=== PATIENT | male | born 1940 | race Caucasian/White ===

== ENCOUNTER → 2016-09-04 | Outpatient (REF) | payer MEDICARE, MEDICAID ==
[2016-09-04 21:26] LABS: ANION GAP 9 MEQ/L (8-16); BLOOD UREA NITROGEN 19 MG/DL (7-18); CALCIUM LEVEL 9.4 MG/DL (8.8-10.2); CARBON DIOXIDE LEVEL 29 MEQ/L (21-32); CHLORIDE LEVEL 107 MEQ/L (98-107); CREATININE FOR GFR 0.71 MG/DL (0.70-1.30); GLOMERULAR FILTRATION RATE > 60.0 (>42); GLUCOSE, FASTING 91 MG/DL (83-110); POTASSIUM SERUM 4.3 MEQ/L (3.5-5.1); SODIUM LEVEL 145 MEQ/L (136-145)
== END ==
LOC: M SFHCLERA 14:13
PROVIDERS: ATTEND Family Medicine
DX: E11.9 Type 2 diabetes mellitus without complications (principal)
CPT/HCPCS: 80048; 82043; 83036; G0463

== ENCOUNTER 2016-09-19 10:39 | Emergency (ER) | payer MEDICARE, MEDICAID ==
--- NOTE | 2016-09-19 14:55 | EDDOCDS ---
Nurse's Notes [facility] Name: Juan Daigle Age: 76 yrs Sex: Male : 1940 Arrival Date: 09/19/2016 Time: 10:39 Bed U3 Private MD: Diagnosis: Emotional lability Presentation: 09/19 10:50 Presenting complaint: Patient states: Brought in by police patient denies SI/HI. Mental mlb1 Health Triage Level: Level 2: The patient was brought to the ED for evaluation because of a legal pickup order. Adult Sepsis Screening: The patient does not have new or worsening altered mentation. Patient's respiratory rate is less than 22. Systolic blood pressure is greater than 100. Patient has a qSOFA score of 0- Negative Sepsis Screen. Mental Health Triage Level: Level 2:. Suicide/Homicide risk assessment- the patient denies having any suicidal and/or homicidal ideations and does not present with any other emotional, behavioral or mental health complaints. Status: Patient is not a creative services specialist or dependent. Transition of care: patient was not received from another setting of care. 10:50 Acuity: PAT Level 3 mlb1 10:50 Method Of Arrival: Police Car mlb1 Triage Assessment: 10:57 General: Appears in no apparent distress, Behavior is appropriate for age, cooperative. mlb1 Pain: Denies pain. The patient is triaged at the bedside. See Assessment in Nurses Notes section of ED record. Neurological: Level of Consciousness is awake, alert, Oriented to person, place. Respiratory: No deficits noted. Historical: - Allergies: no known allergies; - Home Meds: 1. furosemide 20 mg Oral tab 1 tab once daily 2. carvedilol 3.125 mg oral tab 2 times per day 3. aspirin 81 mg Oral TbEC 1 tab once daily 4. risperidone 2 mg oral tab 1 tab once daily 5. metformin 1,000 mg Oral tab 1 tab 2 times per day 6. lisinopril 5 mg Oral tab 1 tab once daily 7. Plavix 75 mg Oral tab 1 tab once daily 8. lovastatin 20 mg Oral tab 1 tab once daily - PMHx: Hypertension; Diabetes - NIDDM: controlled; CAD; CHF; Bipolar disorder; - PSHx: none; - Social history: Smoking status: Patient uses tobacco products, heavy tobacco smoker. No barriers to communication noted, The patient speaks fluent Turkish, Speaks appropriately for age. - Family history: Not pertinent. - : Unable to assess if pt is on anticoagulants. Home medication list is obtained from the patient. - Exposure Risk Screening:: None identified. Screenin:35 Screening information is obtained from the parent. Fall risk: No risks identified. ms2 Assistance ADL's: requires no assistance with activities of daily living. Abuse/DV Screen: The patient / caregiver reports he/she is: not in a situation that causes fear, pain or injury. Nutritional screening: No deficits noted. home support is adequate. 11:36 Advance Directives: Currently, there is no health care proxy. There is no active DNR ms2 order. There is no living will. There is no Power of Audit Officer. Advance directive information has not previously been placed in an [facility] medical record. Further advance directive information is declined. Assessment: 11:00 General: Appears in no apparent distress, comfortable, Behavior is appropriate for age, mlb1 cooperative. Pain: Denies pain. Neurological: Level of Consciousness is awake, alert, Oriented to person, place. Respiratory: No deficits noted. 11:33 General: Appears in no apparent distress, comfortable, talking with Dr. davalos. ms2 Neurological: Level of Consciousness is awake, alert, obeys commands. Respiratory: No deficits noted. Airway is patent Respiratory effort is even, unlabored, Respiratory pattern is regular, symmetrical. Derm: Skin is pink, warm & dry. Musculoskeletal: Range of motion intact in all extremities. 12:59 General: Appears in no apparent distress, eating box lunch. Behavior is cooperative. ms2 Neurological: Level of Consciousness is awake, alert, obeys commands. Respiratory: No deficits noted. Airway is patent Respiratory effort is even, unlabored, Respiratory pattern is regular, symmetrical. :. Derm: Skin is pink, warm & dry. Musculoskeletal: No deficits noted. 14:46 Adult Sepsis Screening: Patient's respiratory rate is less than 22. Systolic blood ms2 pressure is less than or equal to 100 (1 point). Patient has a qSOFA score of 1- Negative Sepsis Screen. General: Appears in no apparent distress, pt very active -talking /talking moving about quickly-moving chart writer in circles,. pt not lightheaded or dizzy, gait steady. Behavior is cooperative, pleasant. General: pt ate 2 lunches. Neurological: Level of Consciousness is awake, alert, obeys commands. Cardiovascular:. Respiratory: No deficits noted. Airway is patent Respiratory effort is even, unlabored, Respiratory pattern is regular, symmetrical. Derm: Skin is pink, warm & dry. Derm: Skin is pink, warm & dry. Mental Health Eval: 13:13 Status: The patient is not a creative services specialist or dependent. [facility] Behavioral Health: The patient is not an established patient of [facility] Behavioral Health. Referral Information: Evaluation referral is generated by a police agency: [employer] . The patient was referred for evaluation because Per sister, pt "talking bizarre". Subjective: The patients chief complaint is Pt is slightly disheveled. Pleasant and cooperative. Denies SI or HI, denies A/VH. Pt aware of the year, the month and day, and who the president is. Pt does tend to ramble. He is not always compliant with his meds because he feels "ok" and does not need them all the time. Pt says nurse does not want him to smoke cigarettes, however he states he does not wish to quit. Pt was apparently trying to light cigarettes outside today because smoking is not allowed in his apt. Delusions are denied. Patient's mood is appropriate. Hallucinations are denied. Pt resides with his sister in own apt at [facility]. His pcp is Dr Borja at [facility]. He has no services. States he went to in [address] [facility] but was "just visiting." [facility] started coming in to home 3 weeks ago to draw labs and check on him. Spoke with pt's sister, Ayala, regarding what occurred this morning. Sister says was visiting and pt wanted his cigarettes. Apparently he had purchased a carton this week and felt they were not all where he left them. Meanwhile, encouraging pt to use a nicotine patch in order to stop smoking. The sister denies pt made any sort of verbal threats to harm self or others, but "he talks bizarre sometimes." Sister's story is similar to pt's, although she believes pt may require assisted living at some point soon. She has not approached the nurse about evaluating pt for same. Encouraged her to do so and discuss concerns regarding her brother's future needs. Mental Health history: : Unable to Obtain at this time. Mental Health Admissions: Pt and the sister say pt had an admission to [facility] many years ago (1976?) but neither of them are able to say for what dx. Pt has had no other psych admissions since that time Current Outpatient Mental Health Services: None. Current living environment is Family / Home Support: Lives in own apt with his sister. A family friend escorts him to his appts The patient is single. Patient presents to Emergency Department with the following symptoms within the past 2 weeks: unknown. Pt has no documented hx of dementia, but also no details of past hx for MH. Pt was presented to ER today for bizarre statements. Substance abuse: Pt denies. Mental status exam: Patients appearance is disheveled Patient's behavior is cooperative, Speech is normal. Affect is appropriate. pleasant . Mood is appropriate. Hallucinations are denied. Appetite is normal. Memory is fair. Energy level is normal. Content of thought is normal. Thought process is loose. Cognitive level is oriented to person, place, time and situation Patient's insight is fair. Judgement is fair. Rapport with interviewer is good. Suicidal Ideation is denied. Homicidal ideation is denied. Disposition: Medically cleared for disposition by Kesha Small MD. Vital Signs: 10:56 BP 90 / 43; Pulse 60; Resp 16; Temp 97.3; Pulse Ox 99% on R/A; Weight 72.57 kg (R); mlb1 Height 5 ft. 6 in. (167.64 cm); 10:56 Pain 0/10; mlb1 13:14 BP 107 / 55; Pulse 68; Resp 20 S; Pulse Ox 96% on R/A; ms2 14:53 BP 80 / 50; Pulse 78; Resp 20 S; Pulse Ox 94% on R/A; ms2 10:56 Body Mass Index 25.82 (72.57 kg, 167.64 cm) mlb1 13:14 DR. Davalos aware of BP ms2 14:53 Dr Bong Davalos aware of VS---pt asymptomatic--ok to go home ms2 Vitals: 10:56 Log In time N/A- police car arrival. [facility] ED Course: 10:40 Patient visited by Luis Dyer. mm15 10:40 Patient moved to [facility]15 10:47 Patient moved to [place] [id number] 10:50 Patient visited by Luigi Cadena RN. mlb1 10:51 Kesha Small MD is Attending Physician. sd1 10:53 Triage Initiated mlb1 11:00 Patient visited by Luigi Cadena RN. mlb1 11:02 Patient visited by Aakash Stoll Security Aide. pjf 11:15 Patient visited by Aakash Stoll Security Aide. pjf 11:18 Pt greeted and oriented to ED. Patient advised of names of staff involved in care, pjf location of call plasc[place], wait times and NPO status. Accompanied by Law Enforcement, Patient has correct armband on for positive identification. Bed in low position. Call light in reach. Side rails up X 1. Security observing. Property left with pt per RN, (tracy.b.). Door closed. Noise minimized. Visitors limited. Report received from [facility] - psych. triage level #2, behav. concerns, cooperative \\T\\ this time. Psych Safety Check: Location: Psych Room. 11:25 Patient visited by Kesha Small MD. sd1 11:33 Patient visited by Jose Terrell,DC. ms2 11:35 The patient / caregiver is instructed regarding the plan of care and ED course. ms2 Security observing. 11:36 No IV's were initiated during this patient's visit. No IV's were initiated during this ms2 patient's visit. No procedures done that require assistance. 11:41 Patient visited by Aakash Stoll Security Aide. pjf 12:03 Patient visited by Aakash Stoll Security Aide. pjf 12:03 [facility] Payment Agreement was scanned into [employer] and attached to record. jp5 12:20 Patient visited by Aakash Stoll Security Aide. pjf 12:37 Patient visited by Aakash Stoll Security Aide. pjf 12:52 Patient visited by Aakash Stoll Security Aide. pjf 12:59 The patient / caregiver is instructed regarding the plan of care and ED course. ms2 Security observing. 13:01 Patient name changed from Juan\\S\\\\S\\Daigle\\S\\ to Juan\\S\\ \\S\\Daigle. EDMS 13:04 Patient visited by Aakash Stoll Security Aide. pjf 13:14 Patient visited by Jose Terrell,DC. ms2 13:15 The patient / caregiver is instructed regarding the plan of care and ED course. ms2 Security observing. 13:44 Patient visited by Jose Terrell RN. ms2 13:44 Diet: Patient given regular meal. ms2 13:56 Patient visited by Aakash Stoll Security Aide. pjf 14:23 Patient visited by Aakash Stoll Security [place]. pjf 14:36 Patient visited by Aakash Stoll Security Aide. pjf 14:45 Patient visited by Jose Terrell RN. ms2 14:49 Patient visited by Aakash Stoll Security [place]. pjf 14:51 The patient / caregiver is instructed regarding the plan of care and ED course. ms2 Order Results: There are currently no results for this order. Outcome: 13:52 Discharge ordered by Provider. sd1 14:51 Discharge Assessment: patient administered narcotics - no. The following High Risk ms2 Discharge criteria are identified: None. Discharged to home ambulatory, given cab pass. Condition: stable. Discharge instructions given to patient, Instructed on discharge instructions, follow up and referral plans. Demonstrated understanding of instructions, Pt was receptive of discharge instructions/ teaching. No special radiology studies were completed. 14:54 Patient left the ED. ms2 Signatures: Dispatcher [employer] EDMS Kesha Small MD MD sd1 Jose Terrell,DC RN ms2 Yusra Yuen, PSA PSA ca Aakash Stoll Security Aide Luigi Cordero RN RN mlb1 Luis Dyer mm15 Paige Isbell 5 Corrections: (The following items were deleted from the chart) 11:17 10:56 PMHx: none; mlb1 mlb1 MTDD
--- NOTE | 2016-09-19 14:55 | EDDOCDS ---
Physician Documentation [facility] Name: Juan Daigle Age: 76 yrs Sex: Male : 1940 Arrival Date: 09/19/2016 Time: 10:39 Bed [facility] Private MD: Disposition: 09/19/16 13:52 Discharged to Home/Self Care. Impression: Emotional lability. - Condition is Stable. - Medication Reconciliation, Local Pharmacy Hours form. - Follow up: Private Physician; When: Call to arrange an appointment. - Problem is new. - Symptoms are resolved. Historical: - Allergies: no known allergies; - Home Meds: 1. furosemide 20 mg Oral tab 1 tab once daily 2. carvedilol 3.125 mg oral tab 2 times per day 3. aspirin 81 mg Oral TbEC 1 tab once daily 4. risperidone 2 mg oral tab 1 tab once daily 5. metformin 1,000 mg Oral tab 1 tab 2 times per day 6. lisinopril 5 mg Oral tab 1 tab once daily 7. Plavix 75 mg Oral tab 1 tab once daily 8. lovastatin 20 mg Oral tab 1 tab once daily - PMHx: Hypertension; Diabetes - NIDDM: controlled; CAD; CHF; Bipolar disorder; - PSHx: none; - Social history: Smoking status: Patient uses tobacco products, heavy tobacco smoker. No barriers to communication noted, The patient speaks fluent Gibraltarian, Speaks appropriately for age. - Family history: Not pertinent. - : Unable to assess if pt is on anticoagulants. Home medication list is obtained from the patient. - Exposure Risk Screening:: None identified. Vital Signs: 09/19 10:56 BP 90 / 43; Pulse 60; Resp 16; Temp 97.3; Pulse Ox 99% on R/A; Weight 72.57 kg / 159.99 mlb1 lbs (R); Height 5 ft. 6 in. (167.64 cm); 10:56 Pain 0/10; mlb1 13:14 BP 107 / 55; Pulse 68; Resp 20 S; Pulse Ox 96% on R/A; ms2 14:53 BP 80 / 50; Pulse 78; Resp 20 S; Pulse Ox 94% on R/A; ms2 10:56 Body Mass Index 25.82 (72.57 kg, 167.64 cm) mlb1 13:14 DR. Bhatti aware of BP ms2 14:53 Dr Bong Bhatti aware of VS---pt asymptomatic--ok to go home ms2 MDM: 11:19 REGULAR DIET PLASTIC BELL+DIET ordered. EDMS 12:03 [facility] Payment Agreement was scanned into [employer] and attached to record. jp5 12:03 Financial registration complete. jp5 12:25 Recheck B/P ordered. sd1 Signatures: Dispatcher [employer] EDPA Kesha Small MD MD sd1 Jose TerrellRN RN ms2 Luigi Cadena RN RN mlb1 Paige Isbell jp5 The chart was reviewed and I authenticate all verbal orders and agree with the evaluation and treatment provided.Corrections: (The following items were deleted from the chart) 11:17 10:56 PMHx: none; renetta jackson Attachments: 12:03 [facility] Payment Agreement jp5 MTDD
--- NOTE | 2016-09-21 15:55 | EDDOCDS ---
Physician Documentation [facility] Name: Juan Daigle Age: 76 yrs Sex: Male : 1940 Arrival Date: 09/19/2016 Time: 10:39 Bed [facility] Private MD: Disposition: 09/19/16 13:52 Discharged to Home/Self Care. Impression: Emotional lability. - Condition is Stable. - Medication Reconciliation, Local Pharmacy Hours form. - Follow up: Private Physician; When: Call to arrange an appointment. - Problem is new. - Symptoms are resolved. Historical: - Allergies: no known allergies; - Home Meds: 1. furosemide 20 mg Oral tab 1 tab once daily 2. carvedilol 3.125 mg oral tab 2 times per day 3. aspirin 81 mg Oral TbEC 1 tab once daily 4. risperidone 2 mg oral tab 1 tab once daily 5. metformin 1,000 mg Oral tab 1 tab 2 times per day 6. lisinopril 5 mg Oral tab 1 tab once daily 7. Plavix 75 mg Oral tab 1 tab once daily 8. lovastatin 20 mg Oral tab 1 tab once daily - PMHx: Hypertension; Diabetes - NIDDM: controlled; CAD; CHF; Bipolar disorder; - PSHx: none; - Social history: Smoking status: Patient uses tobacco products, heavy tobacco smoker. No barriers to communication noted, The patient speaks fluent [place] Islander, Speaks appropriately for age. - Family history: Not pertinent. - : Unable to assess if pt is on anticoagulants. Home medication list is obtained from the patient. - Exposure Risk Screening:: None identified. Vital Signs: 09/19 10:56 BP 90 / 43; Pulse 60; Resp 16; Temp 97.3; Pulse Ox 99% on R/A; Weight 72.57 kg / 159.99 mlb1 lbs (R); Height 5 ft. 6 in. (167.64 cm); 10:56 Pain 0/10; mlb1 13:14 BP 107 / 55; Pulse 68; Resp 20 S; Pulse Ox 96% on R/A; ms2 14:53 BP 80 / 50; Pulse 78; Resp 20 S; Pulse Ox 94% on R/A; ms2 10:56 Body Mass Index 25.82 (72.57 kg, 167.64 cm) mlb1 13:14 DR. Bhatti aware of BP ms2 14:53 Dr Bong Bhatti aware of VS---pt asymptomatic--ok to go home ms2 MDM: 11:19 REGULAR DIET PLASTIC BELL+DIET ordered. EDMS 12: [facility] Payment Agreement was scanned into [employer] and attached to record. jp 12: Financial registration complete. jp01 05: Recheck B/P ordered. sd1 09/20 11:23 T-Sheet-- Draft Copy was scanned into [employer] and attached to record. gb Signatures: Dispatcher [employer] EDKesha Aguirre MD MD sd1 Jose Terrell,RN RN ms2 Erinn Trotter, Reg Reg gb Luigi Cadena RN RN mlb1 Paige Isbell jp5 The chart was reviewed and I authenticate all verbal orders and agree with the evaluation and treatment provided.Corrections: (The following items were deleted from the chart) 09/19 11:17 10:56 PMHx: none; mlb1 mlb1 Attachments: 12:03 [facility] Payment Agreement 5 09/20 11:23 T-Sheet-- Draft Copy gb Chart Complete MTDD
--- NOTE | 2016-09-21 15:55 | EDDOCDS ---
Nurse's Notes [facility] Name: Juan Daigle Age: 76 yrs Sex: Male : 1940 Arrival Date: 09/19/2016 Time: 10:39 Bed U3 Private MD: Diagnosis: Emotional lability Presentation: 09/19 10:50 Presenting complaint: Patient states: Brought in by police patient denies SI/HI. Mental mlb1 Health Triage Level: Level 2: The patient was brought to the ED for evaluation because of a legal pickup order. Adult Sepsis Screening: The patient does not have new or worsening altered mentation. Patient's respiratory rate is less than 22. Systolic blood pressure is greater than 100. Patient has a qSOFA score of 0- Negative Sepsis Screen. Mental Health Triage Level: Level 2:. Suicide/Homicide risk assessment- the patient denies having any suicidal and/or homicidal ideations and does not present with any other emotional, behavioral or mental health complaints. Status: Patient is not a director of in service education or dependent. Transition of care: patient was not received from another setting of care. 10:50 Acuity: PAT Level 3 mlb1 10:50 Method Of Arrival: Police Car mlb1 Triage Assessment: 10:57 General: Appears in no apparent distress, Behavior is appropriate for age, cooperative. mlb1 Pain: Denies pain. The patient is triaged at the bedside. See Assessment in Nurses Notes section of ED record. Neurological: Level of Consciousness is awake, alert, Oriented to person, place. Respiratory: No deficits noted. Historical: - Allergies: no known allergies; - Home Meds: 1. furosemide 20 mg Oral tab 1 tab once daily 2. carvedilol 3.125 mg oral tab 2 times per day 3. aspirin 81 mg Oral TbEC 1 tab once daily 4. risperidone 2 mg oral tab 1 tab once daily 5. metformin 1,000 mg Oral tab 1 tab 2 times per day 6. lisinopril 5 mg Oral tab 1 tab once daily 7. Plavix 75 mg Oral tab 1 tab once daily 8. lovastatin 20 mg Oral tab 1 tab once daily - PMHx: Hypertension; Diabetes - NIDDM: controlled; CAD; CHF; Bipolar disorder; - PSHx: none; - Social history: Smoking status: Patient uses tobacco products, heavy tobacco smoker. No barriers to communication noted, The patient speaks fluent Sinhala, Speaks appropriately for age. - Family history: Not pertinent. - : Unable to assess if pt is on anticoagulants. Home medication list is obtained from the patient. - Exposure Risk Screening:: None identified. Screenin:35 Screening information is obtained from the parent. Fall risk: No risks identified. ms2 Assistance ADL's: requires no assistance with activities of daily living. Abuse/DV Screen: The patient / caregiver reports he/she is: not in a situation that causes fear, pain or injury. Nutritional screening: No deficits noted. home support is adequate. 11:36 Advance Directives: Currently, there is no health care proxy. There is no active DNR ms2 order. There is no living will. There is no Power of Resourcing Advisor. Advance directive information has not previously been placed in an [facility] medical record. Further advance directive information is declined. Assessment: 11:00 General: Appears in no apparent distress, comfortable, Behavior is appropriate for age, mlb1 cooperative. Pain: Denies pain. Neurological: Level of Consciousness is awake, alert, Oriented to person, place. Respiratory: No deficits noted. 11:33 General: Appears in no apparent distress, comfortable, talking with Dr. davalos. ms2 Neurological: Level of Consciousness is awake, alert, obeys commands. Respiratory: No deficits noted. Airway is patent Respiratory effort is even, unlabored, Respiratory pattern is regular, symmetrical. Derm: Skin is pink, warm & dry. Musculoskeletal: Range of motion intact in all extremities. 12:59 General: Appears in no apparent distress, eating box lunch. Behavior is cooperative. ms2 Neurological: Level of Consciousness is awake, alert, obeys commands. Respiratory: No deficits noted. Airway is patent Respiratory effort is even, unlabored, Respiratory pattern is regular, symmetrical. :. Derm: Skin is pink, warm & dry. Musculoskeletal: No deficits noted. 14:46 Adult Sepsis Screening: Patient's respiratory rate is less than 22. Systolic blood ms2 pressure is less than or equal to 100 (1 point). Patient has a qSOFA score of 1- Negative Sepsis Screen. General: Appears in no apparent distress, pt very active -talking /talking moving about quickly-moving blurb writer in circles,. pt not lightheaded or dizzy, gait steady. Behavior is cooperative, pleasant. General: pt ate 2 lunches. Neurological: Level of Consciousness is awake, alert, obeys commands. Cardiovascular:. Respiratory: No deficits noted. Airway is patent Respiratory effort is even, unlabored, Respiratory pattern is regular, symmetrical. Derm: Skin is pink, warm & dry. Derm: Skin is pink, warm & dry. Mental Health Eval: 13:13 Status: The patient is not a director of in service education or dependent. [facility] Behavioral Health: The patient is not an established patient of [facility] Behavioral Health. Referral Information: Evaluation referral is generated by a police agency: [employer] . The patient was referred for evaluation because Per sister, pt "talking bizarre". Subjective: The patients chief complaint is Pt is slightly disheveled. Pleasant and cooperative. Denies SI or HI, denies A/VH. Pt aware of the year, the month and day, and who the president is. Pt does tend to ramble. He is not always compliant with his meds because he feels "ok" and does not need them all the time. Pt says nurse does not want him to smoke cigarettes, however he states he does not wish to quit. Pt was apparently trying to light cigarettes outside today because smoking is not allowed in his apt. Delusions are denied. Patient's mood is appropriate. Hallucinations are denied. Pt resides with his sister in own apt at [facility]. His pcp is Dr Borja at [facility]. He has no services. States he went to in 1976 at [facility] but was "just visiting." [facility] started coming in to home 3 weeks ago to draw labs and check on him. Spoke with pt's sister, Ayala, regarding what occurred this morning. Sister says was visiting and pt wanted his cigarettes. Apparently he had purchased a carton this week and felt they were not all where he left them. Meanwhile, encouraging pt to use a nicotine patch in order to stop smoking. The sister denies pt made any sort of verbal threats to harm self or others, but "he talks bizarre sometimes." Sister's story is similar to pt's, although she believes pt may require assisted living at some point soon. She has not approached the nurse about evaluating pt for same. Encouraged her to do so and discuss concerns regarding her brother's future needs. Mental Health history: : Unable to Obtain at this time. Mental Health Admissions: Pt and the sister say pt had an admission to [facility] many years ago (1976?) but neither of them are able to say for what dx. Pt has had no other psych admissions since that time Current Outpatient Mental Health Services: None. Current living environment is Family / Home Support: Lives in own apt with his sister. A family friend escorts him to his appts The patient is single. Patient presents to Emergency Department with the following symptoms within the past 2 weeks: unknown. Pt has no documented hx of dementia, but also no details of past hx for MH. Pt was presented to ER today for bizarre statements. Substance abuse: Pt denies. Mental status exam: Patients appearance is disheveled Patient's behavior is cooperative, Speech is normal. Affect is appropriate. pleasant . Mood is appropriate. Hallucinations are denied. Appetite is normal. Memory is fair. Energy level is normal. Content of thought is normal. Thought process is loose. Cognitive level is oriented to person, place, time and situation Patient's insight is fair. Judgement is fair. Rapport with interviewer is good. Suicidal Ideation is denied. Homicidal ideation is denied. Disposition: Medically cleared for disposition by Kesha Small MD. 16:28 Disposition: Psychiatric Consult is deferred per ED physician, Dr Davalos. DSM-V ca Differential Diagnosis: Emotional lability. Narrative: Pt discharged to home via Yellow cab. Cab voucher provided. Pt's sister aware. Vital Signs: 10:56 BP 90 / 43; Pulse 60; Resp 16; Temp 97.3; Pulse Ox 99% on R/A; Weight 72.57 kg (R); mlb1 Height 5 ft. 6 in. (167.64 cm); 10:56 Pain 0/10; mlb1 13:14 BP 107 / 55; Pulse 68; Resp 20 S; Pulse Ox 96% on R/A; ms2 14:53 BP 80 / 50; Pulse 78; Resp 20 S; Pulse Ox 94% on R/A; ms2 10:56 Body Mass Index 25.82 (72.57 kg, 167.64 cm) mlb1 13:14 DR. Davalos aware of BP ms2 14:53 Dr Bong Davalos aware of VS---pt asymptomatic--ok to go home ms2 Vitals: 10:56 Log In time N/A- police car arrival. [facility] ED Course: 10:40 Patient visited by Luis Dyer. mm15 10:40 Patient moved to Waiting mm15 10:47 Patient moved to [facility] mlb1 10:50 Patient visited by Luigi Cadena, DC. mlb1 10:51 Kesha Small MD is Attending Physician. sd1 10:53 Triage Initiated mlb1 11:00 Patient visited by Luigi Cadena, DC. mlb1 11:02 Patient visited by Aakash Stoll Security Aide. pjf 11:15 Patient visited by Aakash Stoll Security Aide. pjf 11:18 Pt greeted and oriented to ED. Patient advised of names of staff involved in care, pjf location of call plascencia, wait times and NPO status. Accompanied by Law Enforcement, Patient has correct armband on for positive identification. Bed in low position. Call light in reach. Side rails up X 1. Security observing. Property left with pt per RN, (joanne). Door closed. Noise minimized. Visitors limited. Report received from [facility] - psych. triage level #2, behav. concerns, cooperative \\T\\ this time. Psych Safety Check: Location: Psych Room. 11:25 Patient visited by Kesha Small MD. sd1 11:33 Patient visited by Jose Terrell RN. ms2 11:35 The patient / caregiver is instructed regarding the plan of care and ED course. ms2 Security observing. 11:36 No IV's were initiated during this patient's visit. No IV's were initiated during this ms2 patient's visit. No procedures done that require assistance. 11:41 Patient visited by Aakash Stoll Security Aide. pjf 12:03 Patient visited by Aakash Stoll Security Aide. pjf 12:03 [facility] Payment Agreement was scanned into [employer] and attached to record. jp5 12:20 Patient visited by Aakash Stoll Security Aide. pjf 12:37 Patient visited by Aakash Stoll Security Aide. pjf 12:52 Patient visited by Aakash Stoll Security Aide. pjf 12:59 The patient / caregiver is instructed regarding the plan of care and ED course. ms2 Security observing. 13:01 Patient name changed from Juan\\S\\\\S\\Daigle\\S\\ to Juan\\S\\ \\S\\Daigle. EDMS 13:04 Patient visited by Aakash Stoll Security Aide. pjf 13:14 Patient visited by Jose Terrell RN. ms2 13:15 The patient / caregiver is instructed regarding the plan of care and ED course. ms2 Security observing. 13:44 Patient visited by Jose Terrell RN. ms2 13:44 Diet: Patient given regular meal. ms2 13:56 Patient visited by Aakash Stoll Security Aide. pjf 14:23 Patient visited by Aakash Stoll Security Aide. pjf 14:36 Patient visited by Aakash Stoll Security Aide. pjf 14:45 Patient visited by Jose Terrell RN. ms2 14:49 Patient visited by Aakash Stoll Security Aide. pjf 14:51 The patient / caregiver is instructed regarding the plan of care and ED course. ms2 09/20 11:23 T-Sheet-- Draft Copy was scanned into [employer] and attached to record. Order Results: There are currently no results for this order. Outcome: 09/19 13:52 Discharge ordered by Provider. sd1 14:51 Discharge Assessment: patient administered narcotics - no. The following High Risk ms2 Discharge criteria are identified: None. Discharged to home ambulatory, given cab pass. Condition: stable. Discharge instructions given to patient, Instructed on discharge instructions, follow up and referral plans. Demonstrated understanding of instructions, Pt was receptive of discharge instructions/ teaching. No special radiology studies were completed. 14:54 Patient left the ED. ms2 Signatures: Dispatcher [facility] Kesha Small MD MD sd1 Jose Terrell,RN RN ms2 Yusra Yuen, PSA PSA ca Rose Marie, Erinn, Reg Reg gb Aakash Stoll Security Aide Securpjf Barney, Michael B RN RN mlb1 Luis Dyer mm15 Paige Isbell jp5 Corrections: (The following items were deleted from the chart) 11:17 10:56 PMHx: none; mlb1 mllaura Chart Complete MTDD
--- NOTE | 2016-09-21 15:55 | EDDOCDS ---
Physician Documentation [facility] Name: Juan Daigle Age: 76 yrs Sex: Male : 1940 Arrival Date: 09/19/2016 Time: 10:39 Bed [facility] Private MD: Disposition: 09/19/16 13:52 Discharged to Home/Self Care. Impression: Emotional lability. - Condition is Stable. - Medication Reconciliation, Local Pharmacy Hours form. - Follow up: Private Physician; When: Call to arrange an appointment. - Problem is new. - Symptoms are resolved. Historical: - Allergies: no known allergies; - Home Meds: 1. furosemide 20 mg Oral tab 1 tab once daily 2. carvedilol 3.125 mg oral tab 2 times per day 3. aspirin 81 mg Oral TbEC 1 tab once daily 4. risperidone 2 mg oral tab 1 tab once daily 5. metformin 1,000 mg Oral tab 1 tab 2 times per day 6. lisinopril 5 mg Oral tab 1 tab once daily 7. Plavix 75 mg Oral tab 1 tab once daily 8. lovastatin 20 mg Oral tab 1 tab once daily - PMHx: Hypertension; Diabetes - NIDDM: controlled; CAD; CHF; Bipolar disorder; - PSHx: none; - Social history: Smoking status: Patient uses tobacco products, heavy tobacco smoker. No barriers to communication noted, The patient speaks fluent Kenyan, Speaks appropriately for age. - Family history: Not pertinent. - : Unable to assess if pt is on anticoagulants. Home medication list is obtained from the patient. - Exposure Risk Screening:: None identified. Vital Signs: 09/19 10:56 BP 90 / 43; Pulse 60; Resp 16; Temp 97.3; Pulse Ox 99% on R/A; Weight 72.57 kg / 159.99 mlb1 lbs (R); Height 5 ft. 6 in. (167.64 cm); 10:56 Pain 0/10; mlb1 13:14 BP 107 / 55; Pulse 68; Resp 20 S; Pulse Ox 96% on R/A; ms2 14:53 BP 80 / 50; Pulse 78; Resp 20 S; Pulse Ox 94% on R/A; ms2 10:56 Body Mass Index 25.82 (72.57 kg, 167.64 cm) mlb1 13:14 DR. Bhatti aware of BP ms2 14:53 Dr Bong Bhatti aware of VS---pt asymptomatic--ok to go home ms2 MDM: 11:19 REGULAR DIET PLASTIC BELL+DIET ordered. EDMS 12: REPLACED BY [facility] Payment Agreement was scanned into [employer] and attached to record. jp 12: Financial registration complete. jp01 05: Recheck B/P ordered. sd1 09/20 11:23 T-Sheet-- Draft Copy was scanned into [employer] and attached to record. gb Signatures: Dispatcher [employer] EDKesha Aguirre MD MD sd1 Jose Terrell,RN RN ms2 Erinn Trotter, Reg Reg gb Luigi Cadena RN RN mlb1 Paige Isbell jp5 The chart was reviewed and I authenticate all verbal orders and agree with the evaluation and treatment provided.Corrections: (The following items were deleted from the chart) 09/19 11:17 10:56 PMHx: none; mlb1 mlb1 Attachments: 12:03 REPLACED BY [facility] Payment Agreement 5 09/20 11:23 T-Sheet-- Draft Copy gb Chart Complete MTDD
== END 2016-09-19 14:54 | disposition home or self-care (01) ==
LOC: M ED 10:39
DX: R45.86 Emotional lability (principal); I10 Essential (primary) hypertension; E11.9 Type 2 diabetes mellitus without complications; I25.10 Atherosclerotic heart disease of native coronary artery without angina pectoris; I50.20 Unspecified systolic (congestive) heart failure; F31.9 Bipolar disorder, unspecified; F17.210 Nicotine dependence, cigarettes, uncomplicated; Z79.82 Long term (current) use of aspirin; Z79.899 Other long term (current) drug therapy; Z79.02 Long term (current) use of antithrombotics/antiplatelets

== ENCOUNTER 2016-10-05 16:19 | Inpatient (IN) | payer MEDICARE, MEDICAID ==
[~2016-10-05] VITALS: Ht 167.6 cm; Wt 75.2 kg
[2016-10-05] MEDS ORDERED: ASPIRIN 81 MG CHEW TABLET As Ordered ONE (17:18)
[2016-10-05 18:01] LABS: BASO % 0.8 % (0.0-1.0); EOS # 0.2 K/mm3 (0.0-0.50); EOS % 3.1 % (0.0-3.0); LARGE UNSTAINED CELL # 0.1 K/mm3 (0.0-0.4); LARGE UNSTAINED CELL % 1.5 % (0.0-4.0); LYMPH # 1.7 K/mm3 (1.5-4.5); LYMPH % 24.5 % (24.0-44.0); MEAN CORPUSCULAR HEMOGLOBIN 30.5 pg (27.0-33.0); MEAN CORPUSCULAR HGB CONC 32.9 g/dl (32.0-36.5); MEAN CORPUSCULAR VOLUME 92.6 fl (80.0-96.0); MONO # 0.4 K/mm3 (0.0-0.8); MONO % 6.3 % (0.0-5.0); NEUTROPHILS # 4.1 K/mm3 (1.8-7.7); NEUTROPHILS % 63.8 % (36.0-66.0); PLATELET COUNT, AUTOMATED 163 k/mm3 (150-450); WHITE BLOOD COUNT 6.4 K/mm3 (4.0-10.0)
[2016-10-05 18:25] LABS: ALBUMIN 3.6 GM/DL (3.2-5.2); ALBUMIN/GLOBULIN RATIO 1.16 (1.00-1.93); ALKALINE PHOSPHATASE 67 U/L (45-117); ALT/SGPT 22 U/L (12-78); AST/SGOT 13 U/L (15-37); BILIRUBIN,DIRECT 0.1 MG/DL (0.0-0.2); BILIRUBIN,TOTAL 0.4 MG/DL (0.2-1.0); TOTAL PROTEIN 6.7 GM/DL (6.4-8.2)
[2016-10-05 18:27] LABS: ANION GAP 7 MEQ/L (8-16); BLOOD UREA NITROGEN 20 MG/DL (7-18); CALCIUM LEVEL 9.1 MG/DL (8.8-10.2); CARBON DIOXIDE LEVEL 31 MEQ/L (21-32); CHLORIDE LEVEL 103 MEQ/L (98-107); CREATININE FOR GFR 0.66 MG/DL (0.70-1.30); FREE T4 1.13 NG/DL (0.76-1.46); GLOMERULAR FILTRATION RATE > 60.0 (>42); GLUCOSE, FASTING 82 MG/DL (83-110); MAGNESIUM LEVEL 1.8 MG/DL (1.8-2.4); POTASSIUM SERUM 4.3 MEQ/L (3.5-5.1); SODIUM LEVEL 141 MEQ/L (136-145)
--- NOTE | 2016-10-05 18:46 | REP ---
PORTABLE CHEST: AP portable view of the chest is performed and compared to prior study of 02/10/2016. Mild cardiomegaly is unchanged since the prior study. There is pulmonary venous hypertension and increased interstitial markings diffusely bilaterally which are also stable. The mediastinal silhouette is unchanged. IMPRESSION: Stable mild cardiomegaly, pulmonary venous hypertension and increased interstitial markings. Findings may represent chronic interstitial fibrotic change or edema. There are no new findings. Signed by Julio Cesar Verde MD 10/05/2016 08:16 P
[2016-10-05] MEDS ORDERED: ONDANSETRON 4MG/2ML VIAL (J2405) IV PRN (20:15)
[2016-10-05] MEDS ORDERED: LISI-542 PO (20:28)
[2016-10-05] MEDS ORDERED: ASPI1TAB PO (20:28)
[2016-10-05] MEDS ORDERED: LOVA20TA2 PO (20:28)
[2016-10-05] MEDS ORDERED: METF1000 PO (20:28)
[2016-10-05] MEDS ORDERED: RISP2TAB3 PO (20:28)
[2016-10-05] MEDS ORDERED: FURO20TA2 PO (20:28)
[2016-10-05] MEDS ORDERED: CARV3.12 PO (20:28)
--- NOTE | 2016-10-05 20:56 | HPEPDOC ---
General Date of Admission Oct 05, 2016 at 20:12 Chief Complaint The patient is a 76-year-old male admitted with a reason for visit of Bradycardia,Symptomic Bradycardia. History of Present Illness 76-year-old male with past medical history of diabetes mellitus, coronary artery disease, congestive heart failure with ejection fraction of 35-40% from echo on 07/12, dyslipidemia, tobacco dependence, and bipolar disorder presents to the ER following 2 syncopal episodes over the last 48 hours. The extent of this history is limited given the patient's underlying history of bipolar disorder and noncompliance to his medications. I did obtain the bulk of this information from the ER physician. Apparently, the patient had 2 episodes of syncope over the last 48 hours that were witnessed by his sister at home. The patient states that he was feeling lightheaded and dizzy before these episodes. He notes that he was standing with the symptoms occurred and denies feeling any preceding chest pain, palpitations, shortness of breath, abdominal pain or any other symptoms aside from lightheadedness. He denies any trauma to the head, he denies loss of consciousness, and states that the symptoms only lasted for about 5 seconds. In the ER, an EKG revealed the patient to be in sinus bradycardia with first- degree block. Cardiology has been consulted in the ER, and Dr. Johnson will be evaluating the patient for a possible pacemaker. Patient will be admitted to the hospital service for further evaluation and management. Home Medications Scheduled (Risperidone) 2 Mg Tab 2 MG PO DAILY (Reported) Aspirin (Aspirin 81) 81 Mg Tab 81 MG PO DAILY (Reported) Carvedilol (Carvedilol) 3.125 Mg Tab 3.125 MG PO BID (Reported) Furosemide (Furosemide) 20 Mg Tab 20 MG PO DAILY (Reported) Lisinopril (Lisinopril) 5 Mg Tab 5 MG PO DAILY (Reported) Lovastatin (Lovastatin) 20 Mg Tab 20 MG PO DAILY (Reported) Metformin Hydrochloride (Metformin HCl) 1,000 Mg Tab 1,000 MG PO BID (Reported ) Allergies Coded Allergies: No Known Allergies (Unverified , 10/05/16) Past Medical History Medical History As noted in HPI. Family History Significant Family History: No pertinent family hx Social History * Smoker: less than 1 pack/day Alcohol: occationally Drugs: denies Review of Symptoms Other systems Unable to accurately review systems as the patient is tangential in his conversation. Physical Examination General Exam: Positive: Alert, Cooperative, No Acute Distress ENT Exam: Positive: Atraumatic, Mucous membr. moist/pink Neck Exam: Negative: JVD Chest Exam: Positive: Clear to auscultation, Normal air movement Heart Exam: Positive: Bradycardic, Normal S1, Normal S2 Abdomen Exam: Positive: Soft, Negative: Tenderness Extremity Exam: Negative: Tenderness (2+ pitting edema in the large drums bilaterally) Vital Signs As noted in the EMR. Laboratory Data Labs 24H Laboratory Tests 2 10/05/16 17:51: Acetaminophen Level < 2.0L, Aspartate Amino Transf (AST/SGOT) 13L, Alanine Aminotransferase (ALT/SGPT) 22, Alkaline Phosphatase 67, Total Bilirubin 0.4, Direct Bilirubin 0.1, Albumin 3.6, Albumin/Globulin Ratio 1.16, Anion Gap 7L, White Blood Count 6.4, Red Blood Count 3.89L, Hemoglobin 11.8L, Hematocrit 36.0L , Mean Corpuscular Volume 92.6, Mean Corpuscular Hemoglobin 30.5, Mean Corpuscular Hemoglobin Concent 32.9, Red Cell Distribution Width 13.0, Platelet Count 163, Neutrophils (%) (Auto) 63.8, Lymphocytes (%) (Auto) 24.5, Monocytes ( %) (Auto) 6.3H, Eosinophils (%) (Auto) 3.1H, Basophils (%) (Auto) 0.8, Neutrophils # (Auto) 4.1, Lymphocytes # (Auto) 1.7, Monocytes # (Auto) 0.4, Eosinophils # (Auto) 0.2, Basophils # (Auto) 0.0, Blood Urea Nitrogen 20H, Creatinine 0.66L, Sodium Level 141, Potassium Level 4.3, Chloride Level 103, Carbon Dioxide Level 31, Calcium Level 9.1, Total Creatine Kinase 86, Creatine Kinase MB 3.9H, Creatine Kinase MB Relative Index 4.53H, Ethyl Alcohol Level < 0.003, Free Thyroxine 1.13, Glomerular Filtration Rate > 60.0, Large Unclassified Cells # 0.1, Large Unclassified Cells % 1.5, Magnesium Level 1.8, Salicylates Level 3.9L, Thyroid Stimulating Hormone (TSH) 0.297L, Total Protein 6.7, Troponin I 0.02 10/05/16 20:36: CBC/BMP Laboratory Tests 10/05/16 17:51 Calcium Level 9.1, Total Creatine Kinase 86, Red Blood Count 3.89 L, Mean Corpuscular Volume 92.6, Mean Corpuscular Hemoglobin 30.5, Mean Corpuscular Hemoglobin Concent 32.9, Red Cell Distribution Width 13.0, Neutrophils (%) (Auto ) 63.8, Lymphocytes (%) (Auto) 24.5, Monocytes (%) (Auto) 6.3 H, Eosinophils (% ) (Auto) 3.1 H, Basophils (%) (Auto) 0.8, Neutrophils # (Auto) 4.1, Lymphocytes # (Auto) 1.7, Monocytes # (Auto) 0.4, Eosinophils # (Auto) 0.2, Basophils # ( Auto) 0.0 Plan / VTE VTE Prophylaxis Ordered?: Yes Plan Plan Symptomatic Sinus bradycardia with first-degree AV block Admit to PCU EKG as noted above Initial troponin negative, will cycle [address] Johnson cardiology consulted in the ER, will evaluate the patient for possible pacemaker placement Continue to monitor on telemetry We'll keep the patient nothing by mouth for possible procedure in the morning CAD, History of congestive heart failure Last known EF of 35-40% from 07/12 Does not appear to be grossly volume overloaded at this time Continue aspirin, lisinopril, statin, Lasix Diabetes mellitus Continue insulin sliding scale Dyslipidemia Continue statin Bipolar disorder Continue Risperdal DVT prophylaxis-Lovenox subcutaneously The patient will be admitted to the service of Dr. Santiago who will start following the patient on 10/06/2016 at 7 AM. LEI PADILLA MD Oct 05, 2016 20:56
[2016-10-05] MEDS ORDERED: DEXTROSE 50% 50 ML SYRINGE IV PRN (21:00)
[2016-10-05] MEDS ORDERED: GLUCOSE 4 GM CHEW TABLET PO PRN (21:00)
[2016-10-05] MEDS ORDERED: GLUCAGON FOR INJ 1 MG VIAL (J1610) SC PRN (21:00)
[2016-10-05] MEDS ORDERED: NICOTINE 14 MG/24 HR TRANSDERMAL TD ONE (21:00)
[2016-10-05] MEDS ORDERED: NICOTINE 14 MG/24 HR TRANSDERMAL TD SCH (21:00)
[2016-10-05] MEDS ORDERED: ATROPINE SULF 1MG/10ML SYRINGE (J0461) IV PRN (21:15)
[2016-10-05 21:30] VITALS: BP 186/77
[2016-10-05] MEDS: HumaLOG INSULIN (NovoLOG) PER UNIT SC SCH (22:59)
[2016-10-06] VITALS (8 sets, daily range): BP systolic 126–195; BP diastolic 60–97
[2016-10-06 05:38] LABS: MEAN CORPUSCULAR HEMOGLOBIN 31.1 pg (27.0-33.0); MEAN CORPUSCULAR HGB CONC 33.5 g/dl (32.0-36.5); RED CELL DISTRIBUTION WIDTH 12.7 % (11.5-14.5); WHITE BLOOD COUNT 7.5 K/mm3 (4.0-10.0)
[2016-10-06 06:14] LABS: ANION GAP 7 MEQ/L (8-16); BLOOD UREA NITROGEN 16 MG/DL (7-18); CARBON DIOXIDE LEVEL 28 MEQ/L (21-32); CHLORIDE LEVEL 106 MEQ/L (98-107); CREATININE FOR GFR 0.63 MG/DL (0.70-1.30); GLOMERULAR FILTRATION RATE > 60.0 (>42); GLUCOSE, FASTING 123 MG/DL (83-110); SODIUM LEVEL 141 MEQ/L (136-145)
[2016-10-06 06:15] LABS: CALCIUM LEVEL 8.9 MG/DL (8.8-10.2)
[2016-10-06] MEDS: HumaLOG INSULIN (NovoLOG) PER UNIT SC SCH ×4 (07:24→21:00)
[2016-10-06] MEDS ORDERED: ASPIRIN 81 MG ENTERIC TAB PO SCH (09:00)
[2016-10-06] MEDS: LISINOPRIL 5 MG TAB PO SCH (09:00)
[2016-10-06] MEDS: NICOTINE 14 MG/24 HR TRANSDERMAL TD SCH (09:00)
[2016-10-06] MEDS ORDERED: SIMVASTATIN 20 MG TAB PO SCH ×2 (09:00→21:00)
[2016-10-06] MEDS: risperiDONE 2 MG TAB PO SCH (09:00)
[2016-10-06] MEDS ORDERED: ENOXAPARIN 40 MG/0.4 ML SYRINGE (J1650) SC SCH (09:00)
[2016-10-06] MEDS: FUROSEMIDE 20 MG TAB PO SCH (09:00)
--- NOTE | 2016-10-06 13:21 | IPN ---
DATE: 10/06/2016 Patient is seen and examined at the bedside. Chart has been reviewed. Patient denies any chest pain, pressure, or tightness. He complains of left shoulder discomfort when he raises his hand. He denies any diaphoresis, nausea, vomiting. No dizziness or lightheadedness upon standing. Temperature 97.2, pulse 78, sinus rhythm, respiratory rate 19, blood pressure 158/74, 99% on room air. Generally, patient is awake, alert, oriented times three, answering questions appropriately. No jugular venous distention. No thyromegaly. Moist mucous membranes. Lungs are clear to auscultation. No wheezing, rales, or rhonchi. Heart S1, S2, sinus rhythm at the bedside. Abdomen soft, nontender, nondistended. Extremities 2+ edema. LABORATORY DATA: White count 7.5, hemoglobin 13, hematocrit 39, platelet count 168. TSH 0.297. Sodium 141, potassium 4, chloride 106, bicarbonate 28, BUN 16, creatinine 0.63, glucose 123. Chest xray imaging study pulmonary venous hypertension, chronic interstitial fibrotic change or edema, no new findings. ASSESSMENT AND PLAN: This is a 76-year-old male, history of type 2 diabetes, coronary artery disease (CAD), congestive heart failure (CHF), ejection fraction (EF) of 35-40% from previous echo June 2016, dyslipidemia, tobacco dependence, bipolar disorder, presents to the emergency room (ER) with two syncopal episodes over the past 48 hours. EKG shows first-degree atrioventricular (AV) block, cardiology has been consulted, Dr. Johnson evaluating the patient for possible pacemaker placement. IMPRESSION: 1. Symptomatic sinus bradycardia with recurrent syncope, first-degree atrioventricular (AV) block. Patient is admitted to progressive care unit (PCU) for telemetry. EKG was noted. Troponin negative. Patient's Coreg has been held. Carbonator, Dr. Johnson, to determine requirement for pacemaker placement. 2. Congestive heart failure (CHF). Ejection (EF) of 35-40%, systolic dysfunction. Patient is continued on lisinopril, statin, and Lasix. Will hold the patient's aspirin in case goes for pacemaker placement. 3. Syncope, most likely secondary to bradycardia. Continue on telemetry. Defer to Dr. Johnson for recommendations for possible pacemaker versus loop recorder. 4. Type 2 diabetes. Consistent carbohydrate diet if no plans for pacemaker placement. Currently nothing by mouth. Hypoglycemic protocol. MTDD
--- NOTE | 2016-10-06 14:56 | EDDOCDS ---
Physician Documentation [facility] Name: Juan Daigle Age: 76 yrs Sex: Male : 1940 Arrival Date: 10/05/2016 Time: 16:19 Bed Admit Hold Private MD: Disposition: 10/05/16 19:47 Hospitalization ordered by Rich Otero for Inpatient Admission. Preliminary diagnosis is Syncope and collapse - With sinus arrythmia. - Bed requested for PCU. - Status is Inpatient Admission. bcj - Condition is Stable. - Problem is an ongoing problem. - Symptoms are unchanged. Historical: - Allergies: no known allergies; - Home Meds: 1. metformin 1,000 mg Oral tab 1 tab 2 times per day 2. lovastatin 20 mg Oral tab 1 tab once daily 3. furosemide 20 mg Oral tab 1 tab once daily 4. carvedilol 3.125 mg oral tab 2 times per day 5. risperidone 2 mg oral tab 1 tab once daily 6. aspirin 81 mg Oral TbEC 1 tab once daily 7. lisinopril 5 mg Oral tab 1 tab once daily - PMHx: Bipolar disorder; CAD; CHF; Diabetes - NIDDM: controlled; Hypertension; LBBB; Macular Degeneration; - PSHx: none; - Social history: Smoking status: Patient uses tobacco products, current every day smoker. No barriers to communication noted, The patient speaks fluent Kyrgyz, Speaks appropriately for age. - Family history: Not pertinent. - : Unable to assess if pt is on anticoagulants. Unable to Verify Home Med List with the patient / caregiver. Note have med list from PMD but unknown if pt has been taking meds. sep 19 was on plavix but not on today's med list from PMD. - Exposure Risk Screening:: None identified. Vital Signs: 10/05 16:26 BP 142 / 78 (auto/); srm 16:27 Pulse 64 MON; Pulse Ox 100% ; srm 16:31 BP 142 / 78; Pulse 66; Resp 18; Temp 97.6(TE); Pulse Ox 100% on R/A; Weight 83.46 kg / dem1 184 lbs; Height 5 ft. 6 in. (167.64 cm); Pain 0/10; 16:41 BP 153 / 74 (auto/); srm 16:42 Pulse 64 MON; Pulse Ox 100% ; srm 16:56 Pulse 64 MON; Pulse Ox 100% ; srm 16:56 BP 149 / 70 (auto/); srm 17:11 BP 137 / 95 (auto/); srm 17:12 Pulse 66 MON; Resp 18; Pulse Ox 98% ; srm 17:26 Pulse 46 MON; Pulse Ox 100% ; srm 17:26 BP 152 / 76 (auto/); srm 17:41 BP 142 / 84 (auto/); srm 17:41 Pulse 52 MON; Resp 18; Pulse Ox 100% ; srm 19:06 BP 135 / 64 (auto/); af2 19:07 Pulse 66 MON; Resp 18 S; Pulse Ox 98% on R/A; af2 16:31 Body Mass Index 29.70 (83.46 kg, 167.64 cm) dem1 MDM: 17:15 IV Saline Lock ordered. ml 17:15 Waste Paper [place] Operator/Pulse Ox/q 15 min VS ordered. ml 17:15 Rhythm Strip to chart ordered. ml 17:15 Aspirin Chewable Tablet 324 mg PO once ordered. ml 17:16 CBC with Diff Ordered. EDMS 17:16 MED Profile Ordered. EDMS 17:16 CIP Ordered. EDMS 17:16 Troponin Ordered. EDMS 17:16 Magnesium Level Ordered. EDMS 17:16 FreeT4 with TSH Ordered. EDMS 17:16 Chest, 1 View Ordered. EDMS 17:17 Liver Profile Ordered. EDMS 17:43 Financial registration complete. [email or web address] 17:51 [facility] Payment Agreement was scanned into [employer] and attached to record. [email or web address] 18:47 CBC with Diff Reviewed. ml 18:47 MED Profile Reviewed. ml 18:47 CIP Reviewed. ml 18:47 FreeT4 with TSH Reviewed. ml 18:47 Liver Profile Reviewed. ml 18:47 Troponin Reviewed. ml 18:47 Magnesium Level Reviewed. ml 19:20 ECG WITH READING ER PHYS+CARDIAG ordered. EDMS 19:23 Confirm accurate psychiatric medication list and times of last dosage ordered. mm11 19:23 Detain Pt Until Medically/PFS Cleared ordered. mm11 19:24 Drug Eval Toxicology ED Only Ordered. EDMS 19:49 ACETAMINOPHEN LEVEL Ordered. EDMS 19:49 ETHYL ALCOHOL (ETHANOL) Ordered. EDMS 19:49 SALICYLATE LEVEL Ordered. EDMS 19:49 THYROID STIMULATING HORMONE Ordered. EDMS 20:18 Admission / Observation Status ordered. EDMS 20:19 TROPONIN Ordered. EDMS 20:19 BASIC METABOLIC PROFILE Ordered. EDMS 20:19 COMPLETE BLOOD COUNT Ordered. EDMS 20:19 TROPONIN Ordered. EDMS 20:30 TROPONIN Ordered. EDMS 10/06 09:31 T-Sheet-- Draft Copy was scanned into [employer] and attached to record. gb 12:01 Fingerstick Blood Sugar Ordered. EDMS 13:23 NO ADDED SALT DIET ordered. EDMS Administered Medications: 10/05 17:31 Drug: Aspirin 324 mg [aspirin 81 mg chewable tablet (4 tabs)] Route: PO; ld5 Signatures: Dispatcher [employer] EDMS David Iraheta MD MD Jose Clark, RN RN Angela Villareal RN RN [facility] Erinn Trotter, Reg Reg gb Bronson Griffiths, DO mm11 Carrie FrancisRN RN af2 Nettie Rivas, Reg Reg [id number] Ana Guillermo RN ld5 The chart was reviewed and I authenticate all verbal orders and agree with the evaluation and treatment provided.Corrections: (The following items were deleted from the chart) 19:49 19:24 ACETAMINOPHEN LEVEL+LAB ordered. EDMS EDMS 19:49 19:24 ETHYL ALCOHOL (ETHANOL)+LAB ordered. EDMS EDMS 19:49 19:24 SALICYLATE LEVEL+LAB ordered. EDMS EDMS 19:49 19:24 THYROID STIMULATING HORMONE+LAB ordered. EDMS EDMS 20:30 20:19 TROPONIN ordered. EDMS EDMS 20:56 20:18 2 GRAM SODIUM DIET ordered. EDMS EDMS 10/06 13:23 10/05 20:56 NPO FOR TEST/PROCEDURE ordered. EDMS EDMS Attachments: 17:51 [facility] Payment Agreement [email or web address] 10/06 08:31 T-Sheet-- Draft Copy gb MTDD
--- NOTE | 2016-10-06 14:56 | EDDOCDS ---
Nurse's Notes [facility] Name: Juan Daigle Age: 76 yrs Sex: Male : 1940 Arrival Date: 10/05/2016 Time: 16:19 Bed Admit Hold Private MD: Diagnosis: Syncope and collapse-With sinus arrythmia Presentation: 10/05 16:23 Presenting complaint: EMS states: was at [facility] for routine visit and noted srm to have abnormal ekg. pt states pain comes and goes to just below left axilla. Adult Sepsis Screening: The patient does not have new or worsening altered mentation. Patient's respiratory rate is less than 22. Systolic blood pressure is greater than 100. Patient has a qSOFA score of 0- Negative Sepsis Screen. Suicide/Homicide risk assessment- the patient denies having any suicidal and/or homicidal ideations and does not present with any other emotional, behavioral or mental health complaints. Status: Patient is not a line service person or dependent. Transition of care: patient was received from dr pelaez at [facility]. 16:23 Acuity: PAT Level 3 [facility] 16:23 Method Of Arrival: Ambulance [facility] 16:30 Care prior to arrival: IV initiated. Saline lock initiated. Glucose check. fsbs 105. 20 srm g left AC. Triage Assessment: 16:28 General: Appears in no apparent distress, Behavior is appropriate for age, cooperative. srm Pain: Denies pain. The patient is triaged at the bedside. See Assessment in Nurses Notes section of ED record. Neurological: Level of Consciousness is awake, alert, Oriented to person, place, Media Senior Recruiter are equal bilaterally Moves all extremities. Full function Speech is normal, Facial symmetry appears normal, Pupils are PERRLA. Cardiovascular:. Respiratory: Airway is patent Respiratory effort is even, unlabored. Historical: - Allergies: no known allergies; - Home Meds: 1. metformin 1,000 mg Oral tab 1 tab 2 times per day 2. lovastatin 20 mg Oral tab 1 tab once daily 3. furosemide 20 mg Oral tab 1 tab once daily 4. carvedilol 3.125 mg oral tab 2 times per day 5. risperidone 2 mg oral tab 1 tab once daily 6. aspirin 81 mg Oral TbEC 1 tab once daily 7. lisinopril 5 mg Oral tab 1 tab once daily - PMHx: Bipolar disorder; CAD; CHF; Diabetes - NIDDM: controlled; Hypertension; LBBB; Macular Degeneration; - PSHx: none; - Social history: Smoking status: Patient uses tobacco products, current every day smoker. No barriers to communication noted, The patient speaks fluent Japanese, Speaks appropriately for age. - Family history: Not pertinent. - : Unable to assess if pt is on anticoagulants. Unable to Verify Home Med List with the patient / caregiver. Note have med list from PMD but unknown if pt has been taking meds. sep 19 was on plavix but not on today's med list from PMD. - Exposure Risk Screening:: None identified. Screenin:23 Screening information is obtained from the patient. Fall risk: At risk due to age, The af2 following interventions are performed due to a positive Fall Risk Screen: Fall Risk is added to Special Handling on the patient Summary Screen. A Fall Risk Bracelet was applied to the patient. Side Rails are placed in the up position. A Call Guillen is given with instruction to call for help when getting out of bed. Fall Alert bracelet is placed on the patient. Assistance ADL's: requires no assistance with activities of daily living. Abuse/DV Screen: The patient / caregiver reports he/she is: not in a situation that causes fear, pain or injury. Nutritional screening: No deficits noted. Advance Directives: Currently, there is no health care proxy. home support is adequate. Assessment: 16:32 General: Appears in no apparent distress, Behavior is cooperative, rambling speech. srm EENT: No deficits noted. Respiratory: Airway is patent Respiratory effort is even, unlabored, Breath sounds are clear bilaterally. GI: Abdomen is non- distended Bowel sounds present X 4 quads. Derm: No deficits noted. 16:47 General: pt talking to TV- appears content. srm 18:27 General: Appears in no apparent distress, Behavior is cooperative. General: visitor at [facility] bedside. pt been talking since arrival either to the TV or to people. pt voices no c/o. Neurological: Level of Consciousness is awake, alert, Oriented to person, place, Moves all extremities. Full function Speech is normal, Facial symmetry appears normal. Cardiovascular: Rhythm is sinus arrythmia. Respiratory: Airway is patent Respiratory effort is even, unlabored, Breath sounds are clear bilaterally. 19:15 General: Appears in no apparent distress, Behavior is cooperative, Assumed care of pt af2 at this time. Resp easy and unlabored. Pt visiting with sister at bedside. Offers no complaints. . Neurological: Level of Consciousness is awake, alert, Oriented to person, place. Cardiovascular: Rhythm is occasional unifocal pvc's. Respiratory: Airway is patent Respiratory effort is even, unlabored, Breath sounds are clear bilaterally. Derm: Skin is normal. 20:13 General: Lilian (sister) [phone]. ld5 20:25 General: Appears in no apparent distress, Behavior is cooperative, pt lying on af2 stretcher- talking to himself. offers no complaints to this remote mortgage underwriter. resp easy and unlabored. hospitalist at bedside to examine pt. will continue to monitor. . 21:02 General: report given to DC [employer] management instructor hold nurse. for further documentation af2 refer to [employer] inpt charting.. Vital Signs: 16:26 BP 142 / 78 (auto/); srm 16:27 Pulse 64 MON; Pulse Ox 100% ; srm 16:31 BP 142 / 78; Pulse 66; Resp 18; Temp 97.6(TE); Pulse Ox 100% on R/A; Weight 83.46 kg; dem1 Height 5 ft. 6 in. (167.64 cm); Pain 0/10; 16:41 BP 153 / 74 (auto/); srm 16:42 Pulse 64 MON; Pulse Ox 100% ; srm 16:56 Pulse 64 MON; Pulse Ox 100% ; srm 16:56 BP 149 / 70 (auto/); srm 17:11 BP 137 / 95 (auto/); srm 17:12 Pulse 66 MON; Resp 18; Pulse Ox 98% ; srm 17:26 Pulse 46 MON; Pulse Ox 100% ; srm 17:26 BP 152 / 76 (auto/); srm 17:41 BP 142 / 84 (auto/); srm 17:41 Pulse 52 MON; Resp 18; Pulse Ox 100% ; srm 19:06 BP 135 / 64 (auto/); af2 19:07 Pulse 66 MON; Resp 18 S; Pulse Ox 98% on R/A; af2 16:31 Body Mass Index 29.70 (83.46 kg, 167.64 cm) [facility] Vitals: 16:31 Log In Time N/A - ambulance arrival. [facility] ED Course: 16:21 Patient visited by Lilia Valentino, Tearoom Hostess. deg 16:21 Patient moved to Waiting deg 16:21 Patient moved to 14 deg 16:26 Triage Initiated srm 16:31 Patient visited by Adin Andrade. dem1 16:31 The patient / caregiver is instructed regarding the plan of care and ED course. Patient srm has correct armband on for positive identification. Placed in gown. Bed in low position. Call light in reach. Side rails up X2. monitoring manager on. Pulse ox on. NIBP on. 16:31 Pt greeted and oriented to ED. Patient advised of names of staff involved in care, dem1 location of call guillen, wait times and NPO status. 16:31 Maintain field IV. Dressing intact. Good blood return noted. Site clean & dry. srm 16:33 Patient visited by Angela Yang RN. srm 17:02 David Iraheta MD is Attending Physician. ml 17:02 Patient visited by David Iraheta MD. ml 17:50 Patient name changed from Juan\S\\S\Daigle\S\ to Juan\S\ \S\Daigle. EDMS 17:51 [facility] Payment Agreement was scanned into [employer] and attached to record. ks16 18:28 Patient visited by Angela Yang RN. srm 19:03 Report given to a errol rn. srm 19:15 Carrie Francis RN is Primary Nurse. af2 19:17 Chest, 1 View Returned. EDMS 19:32 Patient visited by Linda Curry PCA. cln 19:32 EKG done. (by ED staff). Reviewed by David Iraheta MD. cln 19:44 Attending Physician role handed off by David Iraheta MD mm11 19:44 Bronson Griffiths DO is Attending Physician. mm11 19:47 Rich Otero is Hospitalizing Provider. mm11 19:48 Drug Eval Toxicology ED Only Sent. af2 20:24 Patient visited by Carrie Francis RN. af2 20:26 Patient visited by Carrie Francis,DC. af2 21:02 Patient visited by Carrie Francis,DC. af2 21:29 Patient moved to 19 af2 23:33 Patient moved to Admit Hold ml3 23:43 Patient moved to 19 skye 23:43 Patient moved to Admit Hold aug 28 07:45 Primary Nurse role handed off by Carrie Francis RN kr3 09:31 T-Sheet-- Draft Copy was scanned into [employer] and attached to record. gb 13:43 Patient visited by Jose Clark RN. [facility] 14:54 No apparent distress. Resting quietly. Awaiting bed assignment. bcj 14:54 No procedures done that require assistance. bcj Administered Medications: 10/05 17:31 Drug: Aspirin 324 mg [aspirin 81 mg chewable tablet (4 tabs)] Route: PO; ld5 Order Results: Lab Order: CBC with Diff; SPEC'M 10/05/16 17:51 Test: WHITE BLOOD COUNT; Value: 6.4; Range: 4.0-10.0; Units: K/mm3; Status: F Test: RED BLOOD COUNT; Value: 3.89; Range: 4.30-6.10; Abnormal: Below low normal; Units: M/mm3; Status: F Test: HEMOGLOBIN; Value: 11.8; Range: 14.0-18.0; Abnormal: Below low normal; Units: g/dl; Status: F Test: HEMATOCRIT; Value: 36.0; Range: 42.0-52.0; Abnormal: Below low normal; Units: %; Status: F Test: MEAN CORPUSCULAR VOLUME; Value: 92.6; Range: 80.0-96.0; Units: fl; Status: F Test: MEAN CORPUSCULAR HEMOGLOBIN; Value: 30.5; Range: 27.0-33.0; Units: pg; Status: F Test: MEAN CORPUSCULAR HGB CONC; Value: 32.9; Range: 32.0-36.5; Units: g/dl; Status: F Test: RED CELL DISTRIBUTION WIDTH; Value: 13.0; Range: 11.5-14.5; Units: %; Status: F Test: PLATELET COUNT, AUTOMATED; Value: 163; Range: 150-450; Units: k/mm3; Status: F Test: NEUTROPHILS %; Value: 63.8; Range: 36.0-66.0; Units: %; Status: F Test: LYMPH %; Value: 24.5; Range: 24.0-44.0; Units: %; Status: F Test: MONO %; Value: 6.3; Range: 0.0-5.0; Abnormal: Above high normal; Units: %; Status: F Test: EOS %; Value: 3.1; Range: 0.0-3.0; Abnormal: Above high normal; Units: %; Status: F Test: BASO %; Value: 0.8; Range: 0.0-1.0; Units: %; Status: F Test: LARGE UNSTAINED CELL %; Value: 1.5; Range: 0.0-4.0; Units: %; Status: F Test: NEUTROPHILS #; Value: 4.1; Range: 1.8-7.7; Units: K/mm3; Status: F Test: LYMPH #; Value: 1.7; Range: 1.5-4.5; Units: K/mm3; Status: F Test: MONO #; Value: 0.4; Range: 0.0-0.8; Units: K/mm3; Status: F Test: EOS #; Value: 0.2; Range: 0.0-0.50; Units: K/mm3; Status: F Test: BASO #; Value: 0.0; Range: 0.0-0.2; Units: K/mm3; Status: F Test: LARGE UNSTAINED CELL #; Value: 0.1; Range: 0.0-0.4; Units: K/mm3; Status: F Lab Order: [facility] Profile; [facility]' 10/05/16 17:51 Test: GLUCOSE, FASTING; Value: 82; Range: 83-110; Abnormal: Below low normal; Units: MG/DL; Status: F Test: BLOOD UREA NITROGEN; Value: 20; Range: 7-18; Abnormal: Above high normal; Units: MG/DL; Status: F Test: CREATININE FOR GFR; Value: 0.66; Range: 0.70-1.30; Abnormal: Below low normal; Units: MG/DL; Status: F Test: GLOMERULAR FILTRATION RATE; Value: > 60.0; Range: >42; Status: F Test: SODIUM LEVEL; Value: 141; Range: 136-145; Units: MEQ/L; Status: F Test: POTASSIUM SERUM; Value: 4.3; Range: 3.5-5.1; Units: MEQ/L; Status: F Test: CHLORIDE LEVEL; Value: 103; Range: 98-107; Units: MEQ/L; Status: F Test: CARBON DIOXIDE LEVEL; Value: 31; Range: 21-32; Units: MEQ/L; Status: F Test: ANION GAP; Value: 7; Range: 8-16; Abnormal: Below low normal; Units: MEQ/L; Status: F Test: CALCIUM LEVEL; Value: 9.1; Range: 8.8-10.2; Units: MG/DL; Status: F Test Note: ; Units are mL/min/1.73 m2 Chronic Kidney Disease Staging per NKF: Stage I & II GFR >=60 Normal to Mildly Decreased Stage III GFR 30-59 Moderately Decreased Stage IV GFR 15-29 Severely Decreased Stage V GFR <15 Very Little GFR Left ESRD GFR <15 on LACE INSPECTOR Lab Order: CIP; SPEC10/05/16 17:51 Test: CPK CREATINE PHOSPHOKINASE; Value: 86; Range: 39-308; Units: U/L; Status: F Test: CK-MB VALUE MASS; Value: 3.9; Range: 0.0-3.6; Abnormal: Above high normal; Units: NG/ML; Status: F Test: MB/CK RELATIVE INDEX; Value: 4.53; Range: < OR =4; Abnormal: Above high normal; Status: F Test Note: ; DIAGNOSIS CRITERIA MMB ng/ml Relative Index (RI) NON-AMI < or = 5 N/A VERDE [place]ONE > 5 < or = 4 AMI > 5 > 4 Lab Order: Troponin; 10/05/16 17:51 Test: TROPONIN I; Value: 0.02; Range: < 0.10; Units: NG/ML; Status: F Test Note: ; Troponin I Reference Interval for [employer] LOCI: 99th Percentile= 0.00-0.045 ng/ml Risk Stratification: <= 0.10 ng/ml Decreased Risk for Adverse Clinical Events. 0.10-1.50 ng/ml Increased Risk for Adverse Clinical Events. Evaluation of additional criterion and/or repeat testing in 2-6 hours is suggested to rule out myocardial damage. >= 1.50 ng/ml Indicative of Myocardial Injury. Lab Order: Magnesium Level; SPEC10/05/16 17:51 Test: MAGNESIUM LEVEL; Value: 1.8; Range: 1.8-2.4; Units: MG/DL; Status: F Lab Order: FreeT4 with TSH; 10/05/16 17:51 Test: THYROID STIMULATING HORMONE; Value: 0.301; Range: 0.358-3.740; Abnormal: Below low normal; Units: uIU/ML; Status: F Test: FREE T4; Value: 1.13; Range: 0.76-1.46; Units: NG/DL; Status: F Lab Order: Liver Profile; 10/05/16 17:51 Test: AST/SGOT; Value: 13; Range: 15-37; Abnormal: Below low normal; Units: U/L; Status: F Test: ALT/SGPT; Value: 22; Range: 12-78; Units: U/L; Status: F Test: ALKALINE PHOSPHATASE; Value: 67; Range: 45-117; Units: U/L; Status: F Test: BILIRUBIN,TOTAL; Value: 0.4; Range: 0.2-1.0; Units: MG/DL; Status: F Test: BILIRUBIN,DIRECT; Value: 0.1; Range: 0.0-0.2; Units: MG/DL; Status: F Test: TOTAL PROTEIN; Value: 6.7; Range: 6.4-8.2; Units: GM/DL; Status: F Test: ALBUMIN; Value: 3.6; Range: 3.2-5.2; Units: GM/DL; Status: F Test: ALBUMIN/GLOBULIN RATIO; Value: 1.16; Range: 1.00-1.93; Status: F Lab Order: ACETAMINOPHEN LEVEL; 10/05/16 17:51 Test: ACETAMINOPHEN LEVEL; Value: < 2.0; Range: 10.0-30.0; Abnormal: Below low normal; Units: UG/ML; Status: F Lab Order: ETHYL ALCOHOL (ETHANOL); 10/05/16 17:51 Test: ETHYL ALCOHOL (ETHANOL); Value: < 0.003; Range: 0.000-0.010; Units: %; Status: F Lab Order: SALICYLATE LEVEL; 10/05/16 17:51 Test: SALICYLATE LEVEL; Value: 3.9; Range: 5.0-30.0; Abnormal: Below low normal; Units: MG/DL; Status: F Lab Order: THYROID STIMULATING HORMONE; [facility]' 10/05/16 17:51 Test: THYROID STIMULATING HORMONE; Value: 0.297; Range: 0.358-3.740; Abnormal: Below low normal; Units: uIU/ML; Status: F Lab Order: TROPONIN; [facility] 10/05/16 20:36 Test: TROPONIN I; Value: 0.02; Range: < 0.10; Units: NG/ML; Status: F Test Note: ; Troponin I Reference Interval for [employer] LOCI: 99th Percentile= 0.00-0.045 ng/ml Risk Stratification: <= 0.10 ng/ml Decreased Risk for Adverse Clinical Events. 0.10-1.50 ng/ml Increased Risk for Adverse Clinical Events. Evaluation of additional criterion and/or repeat testing in 2-6 hours is suggested to rule out myocardial damage. >= 1.50 ng/ml Indicative of Myocardial Injury. Lab Order: BASIC METABOLIC PROFILE; [facility]' 10/06/16 05:20 Test: GLUCOSE, FASTING; Value: 123; Range: 83-110; Abnormal: Above high normal; Units: MG/DL; Status: F Test: BLOOD UREA NITROGEN; Value: 16; Range: 7-18; Units: MG/DL; Status: F Test: CREATININE FOR GFR; Value: 0.63; Range: 0.70-1.30; Abnormal: Below low normal; Units: MG/DL; Status: F Test: GLOMERULAR FILTRATION RATE; Value: > 60.0; Range: >42; Status: F Test: SODIUM LEVEL; Value: 141; Range: 136-145; Units: MEQ/L; Status: F Test: POTASSIUM SERUM; Value: 4.0; Range: 3.5-5.1; Units: MEQ/L; Status: F Test: CHLORIDE LEVEL; Value: 106; Range: 98-107; Units: MEQ/L; Status: F Test: CARBON DIOXIDE LEVEL; Value: 28; Range: 21-32; Units: MEQ/L; Status: F Test: ANION GAP; Value: 7; Range: 8-16; Abnormal: Below low normal; Units: MEQ/L; Status: F Test: CALCIUM LEVEL; Value: 8.9; Range: 8.8-10.2; Units: MG/DL; Status: F Test Note: ; Units are mL/min/1.73 m2 Chronic Kidney Disease Staging per NKF: Stage I & II GFR >=60 Normal to Mildly Decreased Stage III GFR 30-59 Moderately Decreased Stage IV GFR 15-29 Severely Decreased Stage V GFR <15 Very Little GFR Left ESRD GFR <15 on LACE INSPECTOR Lab Order: COMPLETE BLOOD COUNT; 10/06/16 05:20 Test: WHITE BLOOD COUNT; Value: 7.5; Range: 4.0-10.0; Units: K/mm3; Status: F Test: RED BLOOD COUNT; Value: 4.22; Range: 4.30-6.10; Abnormal: Below low normal; Units: M/mm3; Status: F Test: HEMOGLOBIN; Value: 13.1; Range: 14.0-18.0; Abnormal: Below low normal; Units: g/dl; Status: F Test: HEMATOCRIT; Value: 39.2; Range: 42.0-52.0; Abnormal: Below low normal; Units: %; Status: F Test: MEAN CORPUSCULAR VOLUME; Value: 93.0; Range: 80.0-96.0; Units: fl; Status: F Test: MEAN CORPUSCULAR HEMOGLOBIN; Value: 31.1; Range: 27.0-33.0; Units: pg; Status: F Test: MEAN CORPUSCULAR HGB CONC; Value: 33.5; Range: 32.0-36.5; Units: g/dl; Status: F Test: RED CELL DISTRIBUTION WIDTH; Value: 12.7; Range: 11.5-14.5; Units: %; Status: F Test: PLATELET COUNT, AUTOMATED; Value: 168; Range: 150-450; Units: k/mm3; Status: F Lab Order: TROPONIN; 10/06/16 12:01 Test: TROPONIN I; Value: < 0.02; Range: < 0.10; Units: NG/ML; Status: F Test Note: ; Troponin I Reference Interval for [employer] LOCI: 99th Percentile= 0.00-0.045 ng/ml Risk Stratification: <= 0.10 ng/ml Decreased Risk for Adverse Clinical Events. 0.10-1.50 ng/ml Increased Risk for Adverse Clinical Events. Evaluation of additional criterion and/or repeat testing in 2-6 hours is suggested to rule out myocardial damage. >= 1.50 ng/ml Indicative of Myocardial Injury. Lab Order: TROPONIN; SPEC'M 10/06/16 05:20 Test: TROPONIN I; Value: 0.02; Range: < 0.10; Units: NG/ML; Status: F Test Note: ; Troponin I Reference Interval for [employer] [place] LOCI: 99th Percentile= 0.00-0.045 ng/ml Risk Stratification: <= 0.10 ng/ml Decreased Risk for Adverse Clinical Events. 0.10-1.50 ng/ml Increased Risk for Adverse Clinical Events. Evaluation of additional criterion and/or repeat testing in 2-6 hours is suggested to rule out myocardial damage. >= 1.50 ng/ml Indicative of Myocardial Injury. Lab Order: Fingerstick Blood Sugar; SPEC'M 10/05/16 22:58 Test: BEDSIDE GLUCOSE; Value: 106; Range: 83-110; Units: MG/DL; Status: F Lab Order: Fingerstick Blood Sugar; SPEC'M 10/06/16 11:47 Test: BEDSIDE GLUCOSE; Value: 116; Range: 83-110; Abnormal: Above high normal; Units: MG/DL; Status: F Radiology Order: Chest, 1 View Test: Chest, 1 View REASON FOR EXAMINATION: cp; PORTABLE CHEST:; ; AP portable view of the chest is performed and compared to prior study of; 02/10/2016. Mild cardiomegaly is unchanged since the prior study. There is; pulmonary venous hypertension and increased interstitial markings diffusely; bilaterally which are also stable. The mediastinal silhouette is unchanged.; ; IMPRESSION:; ; Stable mild cardiomegaly, pulmonary venous hypertension and increased; interstitial markings. Findings may represent chronic interstitial fibrotic; change or edema. There are no new findings.; ; ; Signed by; Julio Cesar Verde MD 10/05/2016 08:16 P; Outcome: 19:47 Decision to Hospitalize by Provider. mm11 10/06 14:54 Discharge Assessment: patient administered narcotics - no. The following High Risk bcj Discharge criteria are identified: None. Admitted to PCU accompanied by nurse, via stretcher, on monitor. Condition: stable. No special radiology studies were completed. Property :Personal belongings accompany Pt. 14:55 Patient left the ED. [facility] Signatures: Dispatcher [employer] EDMS David Iraheta MD MD ml Lilia Valentino, Tearoom Hostess Unit deg Jose Clark, RN RN Angela Zhou RN RN alexsandra Pedroza, Angelica Zambrano, RN RN skye Trotter, Erinn, Reg Reg gb Peyman Mckeon, Tearoom Hostess Unit ml3 Mayra BrooksRN RN kr3 Bronson Griffiths, DO DO mm11 Ana GuillermoRN RN joanie5 Adin Andrade dem1 Carrie FrancisRN RN af2 Nettie Rivas, Reg Reg ks16 Linda Curry, MANSOOR SCIENTIFIC DIVER cln Corrections: (The following items were deleted from the chart) 10/05 19:49 19:48 THYROID STIMULATING HORMONE+LAB sent. af2 EDMS 19:49 19:48 SALICYLATE LEVEL+LAB sent. af2 EDMS 19:49 19:48 ETHYL ALCOHOL (ETHANOL)+LAB sent. af2 EDMS 19:49 19:48 ACETAMINOPHEN LEVEL+LAB sent. af2 EDMS MTDD
[2016-10-06 17:57] LABS: MAGNESIUM LEVEL 1.9 MG/DL (1.8-2.4); POTASSIUM SERUM 3.9 MEQ/L (3.5-5.1)
--- NOTE | 2016-10-06 21:13 | ECGEPIP ---
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
[2016-10-06] MEDS: RANOLAZINE 500 MG ER TAB PO SCH (21:57)
[2016-10-06] MEDS ORDERED: TICAGRELOR 90 MG TABLET (BRILINTA) PO ONE (22:00)
[2016-10-06] MEDS ORDERED: POTASSIUM CHLORIDE 10 MEQ SR TABLET PO ONE (22:15)
[2016-10-06] MEDS ORDERED: MAG SULF 1GM/100ML (MAG RUN) 1 GM in APPROPRIATE DILUENT 1 EA IV ONE (22:15)
[2016-10-07 04:00] VITALS: BP 151/90
[2016-10-07 05:34] LABS: MEAN CORPUSCULAR HEMOGLOBIN 30.1 pg (27.0-33.0); MEAN CORPUSCULAR HGB CONC 32.6 g/dl (32.0-36.5); MEAN CORPUSCULAR VOLUME 92.5 fl (80.0-96.0); RED CELL DISTRIBUTION WIDTH 12.6 % (11.5-14.5); WHITE BLOOD COUNT 8.3 K/mm3 (4.0-10.0)
[2016-10-07 06:08] LABS: ANION GAP 9 MEQ/L (8-16); BLOOD UREA NITROGEN 13 MG/DL (7-18); CALCIUM LEVEL 9.2 MG/DL (8.8-10.2); CARBON DIOXIDE LEVEL 27 MEQ/L (21-32); CHLORIDE LEVEL 105 MEQ/L (98-107); CREATININE FOR GFR 0.67 MG/DL (0.70-1.30); GLOMERULAR FILTRATION RATE > 60.0 (>42); GLUCOSE, FASTING 120 MG/DL (83-110); POTASSIUM SERUM 4.2 MEQ/L (3.5-5.1); SODIUM LEVEL 141 MEQ/L (136-145)
[2016-10-07 07:30] VITALS: BP 150/78
[2016-10-07] MEDS: HumaLOG INSULIN (NovoLOG) PER UNIT SC SCH ×4 (08:12→21:00)
[2016-10-07] MEDS: RANOLAZINE 500 MG ER TAB PO SCH ×2 (10:33→22:38)
[2016-10-07] MEDS: ATORVASTATIN 20 MG TAB PO SCH (10:33)
[2016-10-07] MEDS: FUROSEMIDE 20 MG TAB PO SCH (10:34)
[2016-10-07] MEDS: TICAGRELOR 90 MG TABLET (BRILINTA) PO SCH ×2 (10:34→22:38)
[2016-10-07] MEDS: risperiDONE 2 MG TAB PO SCH (10:35)
[2016-10-07] MEDS: LISINOPRIL 5 MG TAB PO SCH (10:35)
[2016-10-07] MEDS: ENOXAPARIN 40 MG/0.4 ML SYRINGE (J1650) SC SCH (10:36)
[2016-10-07] MEDS: NICOTINE 14 MG/24 HR TRANSDERMAL TD SCH (10:37)
[2016-10-07 12:30] VITALS: BP 140/60
[2016-10-07 16:30] VITALS: BP 124/60
[2016-10-07 20:00] VITALS: BP 116/59
[2016-10-07] MEDS: LORazepam 0.5 MG TAB PO SCH (22:39)
[2016-10-07] MEDS: DIVALPROEX 250MG *ER* TAB PO SCH (22:39)
[2016-10-08] VITALS (7 sets, daily range): BP systolic 92–139; BP diastolic 50–77
--- NOTE | 2016-10-08 03:26 | IPN ---
DATE: 10/07/2016 Patient is seen and examined at the bedside. Chart has been reviewed. This morning patient denies any chest pain, pressure, or tightness, shortness of breath, palpitations, lightheadedness, or syncopal episode. Patient has not slept over the past 24 hours, speaking very fast with tangential thinking. Sitter at the bedside said the patient has been cooperative and per staff, the patient has had no adverse issues on telemetry. Temperature 95.6, pulse 67, respiratory rate 18, blood pressure 150/70, 99% on room air. Generally, patient is awake, alert, oriented to person, place, and time. He is speaking fluently. No respiratory distress. No thyromegaly. Moist mucous membranes. Lungs are clear to auscultation. Heart: S1, S2, sinus rhythm. Abdomen is soft, nontender, nondistended. Extremities with positive pitting edema. LABORATORY DATA: White count 8.3, hemoglobin 13, hematocrit 41, platelet count 202. Sodium 141, potassium 4.2, chloride 105, bicarbonate 27, BUN 13, creatinine 0.67, glucose of 120. Chest x-ray 10/05 shows cardiomegaly, increased interstitial markings, chronic fibrosis. ASSESSMENT AND PLAN: This is a 76-year-old male with history of bipolar disorder managed by outpatient psychiatrist on chronic Risperdal 2 mg daily, question of noncompliance with his medications, coronary artery disease (CAD), heart failure (CHF), ejection fraction (EF) of 35-40%, prior echo June 2016, dyslipidemia, tobacco dependence, presents to the emergency room (ER) with two syncopal episodes over the past 48 hours. EKG shows first-degree atrioventricular (AV) block. Dr. Johnson has been consulted for possible pacemaker placement and coronary angiogram. IMPRESSION: 1. Symptomatic sinus bradycardia with recurrent syncope, first-degree atrioventricular (AV) block admitted to progressive care unit (PCU). EKG has noted. Troponin negative. Patient has been started on Ranexa. Continued on lisinopril and Brilinta. Plans are for transferring to [place] this week for angiogram. Continue to hold off on Coreg due to the bradycardia and first-degree AV block. 2. Hypertension. Stable on lisinopril and oral Lasix. 3. History of congestive heart failure, ejection (EF) of 35%. On lisinopril, Lasix, Lipitor. 4. Bipolar disorder. Currently unstable. Consult psychiatry for management. DISPOSITION: Psychiatric issues seem to be improved prior to transferring to [place] for catheterization this week. MTDD
[2016-10-08 05:28] LABS: MEAN CORPUSCULAR HEMOGLOBIN 30.8 pg (27.0-33.0); MEAN CORPUSCULAR HGB CONC 33.7 g/dl (32.0-36.5); MEAN CORPUSCULAR VOLUME 91.5 fl (80.0-96.0); RED CELL DISTRIBUTION WIDTH 12.6 % (11.5-14.5); WHITE BLOOD COUNT 7.7 K/mm3 (4.0-10.0)
[2016-10-08 05:34] LABS: ANION GAP 7 MEQ/L (8-16); BLOOD UREA NITROGEN 15 MG/DL (7-18); CALCIUM LEVEL 9.4 MG/DL (8.8-10.2); CARBON DIOXIDE LEVEL 29 MEQ/L (21-32); CHLORIDE LEVEL 104 MEQ/L (98-107); CREATININE FOR GFR 0.69 MG/DL (0.70-1.30); GLOMERULAR FILTRATION RATE > 60.0 (>42); GLUCOSE, FASTING 107 MG/DL (83-110); SODIUM LEVEL 140 MEQ/L (136-145)
[2016-10-08] MEDS: HumaLOG INSULIN (NovoLOG) PER UNIT SC SCH ×4 (07:10→20:46)
[2016-10-08] MEDS: ENOXAPARIN 40 MG/0.4 ML SYRINGE (J1650) SC SCH (08:58)
[2016-10-08] MEDS: ATORVASTATIN 20 MG TAB PO SCH (08:59)
[2016-10-08] MEDS: NICOTINE 14 MG/24 HR TRANSDERMAL TD SCH (08:59)
[2016-10-08] MEDS: DIVALPROEX 250MG *ER* TAB PO SCH (08:59)
[2016-10-08] MEDS: TICAGRELOR 90 MG TABLET (BRILINTA) PO SCH ×2 (08:59→20:46)
[2016-10-08] MEDS: RANOLAZINE 500 MG ER TAB PO SCH ×2 (08:59→20:46)
[2016-10-08] MEDS: LISINOPRIL 5 MG TAB PO SCH (08:59)
[2016-10-08] MEDS: risperiDONE 2 MG TAB PO SCH (08:59)
[2016-10-08] MEDS: FUROSEMIDE 20 MG TAB PO SCH (08:59)
[2016-10-08] MEDS: LORazepam 0.5 MG TAB PO PRN (10:03)
[2016-10-08 10:48] LABS: MAGNESIUM LEVEL 2.3 MG/DL (1.8-2.4)
--- NOTE | 2016-10-08 15:14 | CR ---
DATE OF CONSULTATION: 10/07/2016 CHIEF COMPLAINT: He feels good. SUBJECTIVE: This is a 76-year-old. He has been admitted to the inpatient hospital on the medical surgical floor, as he has congestive heart failure. I have been asked to see him by Dr. Santiago, hospitalist. The chart is reviewed. The patient is interviewed, and some of the history is also obtained from the staff. I have been asked to see the patient as he is thought to be manic. He apparently has a history of bipolar disorder, and it is unclear if he has been seeing psychiatry. He suggests that has not been the case for many years. He stays with his sister. He came to the hospital after he had had symptomatic bradycardia, had had two episodes of syncope within 48 hours prior to coming to hospital. These were witnessed by his sister at home. He has a history of diabetes mellitus, coronary artery disease, congestive heart failure, with an ejection fraction of up to 40%, some time in June of last year. The information obtained from the patient is rather limited, given his current mood, which is somewhat elated, and overly productive speech, with tangentiality of thought. I understand that the hospitalist, and cardiology, are planning to send the patient for cardiac catheterization within the next couple of days to [place]. I am also told that his catheterization may not be as urgent, given that cardiac enzymes have been essentially not been compromised. He says he has been doing well, and that he has plenty of friends. He spoke of feeling good, acknowledged that there are times he moves from one topic to another when speaking. Does say he usually talks fast, acknowledges he has had difficulties with sleep, in that it has been poor. Says has good energy. He has felt that he has been doing well, and that he stayed at home. He says he "sat there" for the last 55 years. Says that is similar to other "[place] tribes" (these are his words). He has not gone to the doctor, says has not needed to, but acknowledges that he take medicines, says he just recently started going to see Dr. Borja, at the [facility], and takes medicines that he needs. Denies that he has been suicidal. He spoke of being seen by Dr. Verna Hammonds, who he claims interviewed him for 16 hours on one occasion. Says has plenty of friends, sees them, and then went on to speak about reading [employer], [employer], and how he thought one had plagiarized the other. Says he stays with his sister, and that at times he cooks, but that she does most of the cooking, says he does his washing. PAST PSYCHIATRIC HISTORY: He says he was admitted to psychiatric hospitals in the past, none for more than 20 years. Says he had always gone in on a voluntary basis. It is unclear when that was the case, he says he has not seen a psychiatrist for several years. He is currently on risperidone at 2 mg daily, it is unclear who prescribes him that , he says it is his primary care, and that he has been on it for the last few months possibly. It should be noted, the patient is not reliable as a historian, given his condition. Denies any history of suicide attempts. SUBSTANCE ABUSE HISTORY: I am unaware of any at present, of any significance. MEDICAL HISTORY: 1. Diabetes mellitus. 2. Coronary artery disease. 3. Congestive heart failure. 4. Dyslipidemia. 5. Tobacco dependence. 6. Has had bradycardia recently. 7. Has had two syncopal attacks. ALLERGIES: No known allergies. MEDICATIONS: - risperidone 2 mg daily - aspirin - carvedilol 3.125 mg twice a day - furosemide 20 mg daily - lisinopril 5 mg daily - lovastatin 20 mg daily - metformin 1000 mg twice a day SOCIAL HISTORY: He stays with his sister. Says he is used to work "hundreds of jobs" but I am not aware of any details. MENTAL STATUS EXAMINATION: He is cooperative, appears well built. He is bald, fairly neat. There is no overt agitation, no psychomotor retardation. Speech is overly productive, fairly rapid , and he displays tangentiality of thought, but is directable. Mood is good. Affect is somewhat expansive, tends to laugh easily. Does not appear to be internally preoccupied. Has delusions, some of grandeur. He denies any thoughts of harming himself or anyone else. No fluctuation of consciousness. He is able to maintain and shift attention relatively easily. No difficulties as regards his sensorium. He is oriented to place and person, not fully to time. Thought it was the 15 of October, and then the , and then figured out that it was the , with prompting. He was aware of the year, as well as the day of the week. I did not formally test him for concentration, or for short-term memory. Intellect is average. Judgment is poor, as is insight. VITAL SIGNS: Blood pressure 124/68, pulse 60, temperature 96.1. ASSESSMENT: Bipolar disorder, current episode manic, with psychotic features. He is manic, with an elated mood, overly productive speech, tangential thoughts, delusions, some of those are of grandeur. He has poor judgment and insight. RECOMMENDATIONS: 1. Continue risperidone 2 mg daily. 2. Add Depakote ER 250 mg tonight, and 250 mg tomorrow only. 3. Start Depakote ER 500 mg at night from tomorrow night onward. 4. Add Ativan 0.5 mg at night, and Ativan 0.5 mg every four hours as needed for agitation/anxiety. The above measures are to help address his current mar. Please have the above recommendations cleared by the hospitalist and/or beverage specialist. Continue the rest of his care. We will follow with you. If he is not going for cardiac catheterization in the near future, please inform psychiatry. He is unsafe to go home at present. Thank you for the consult. If you have any questions, please call. The assessment took 40 minutes. HOLLIE
--- NOTE | 2016-10-08 15:56 | EDDOCDS ---
Physician Documentation [facility] Name: Juan Daigle Age: 76 yrs Sex: Male : 1940 Arrival Date: 10/05/2016 Time: 16:19 Bed Admit Hold Private MD: Disposition: 10/05/16 19:47 Hospitalization ordered by Rich Otero for Inpatient Admission. Preliminary diagnosis is Syncope and collapse - With sinus arrythmia. - Bed requested for PCU. - Status is Inpatient Admission. bcj - Condition is Stable. - Problem is an ongoing problem. - Symptoms are unchanged. Historical: - Allergies: no known allergies; - Home Meds: 1. metformin 1,000 mg Oral tab 1 tab 2 times per day 2. lovastatin 20 mg Oral tab 1 tab once daily 3. furosemide 20 mg Oral tab 1 tab once daily 4. carvedilol 3.125 mg oral tab 2 times per day 5. risperidone 2 mg oral tab 1 tab once daily 6. aspirin 81 mg Oral TbEC 1 tab once daily 7. lisinopril 5 mg Oral tab 1 tab once daily - PMHx: Bipolar disorder; CAD; CHF; Diabetes - NIDDM: controlled; Hypertension; LBBB; Macular Degeneration; - PSHx: none; - Social history: Smoking status: Patient uses tobacco products, current every day smoker. No barriers to communication noted, The patient speaks fluent Polish, Speaks appropriately for age. - Family history: Not pertinent. - : Unable to assess if pt is on anticoagulants. Unable to Verify Home Med List with the patient / caregiver. Note have med list from PMD but unknown if pt has been taking meds. sep 19 was on plavix but not on today's med list from PMD. - Exposure Risk Screening:: None identified. Vital Signs: 10/05 16:26 BP 142 / 78 (auto/); srm 16:27 Pulse 64 MON; Pulse Ox 100% ; srm 16:31 BP 142 / 78; Pulse 66; Resp 18; Temp 97.6(TE); Pulse Ox 100% on R/A; Weight 83.46 kg / dem1 184 lbs; Height 5 ft. 6 in. (167.64 cm); Pain 0/10; 16:41 BP 153 / 74 (auto/); srm 16:42 Pulse 64 MON; Pulse Ox 100% ; srm 16:56 Pulse 64 MON; Pulse Ox 100% ; srm 16:56 BP 149 / 70 (auto/); srm 17:11 BP 137 / 95 (auto/); srm 17:12 Pulse 66 MON; Resp 18; Pulse Ox 98% ; srm 17:26 Pulse 46 MON; Pulse Ox 100% ; srm 17:26 BP 152 / 76 (auto/); srm 17:41 BP 142 / 84 (auto/); srm 17:41 Pulse 52 MON; Resp 18; Pulse Ox 100% ; srm 19:06 BP 135 / 64 (auto/); af2 19:07 Pulse 66 MON; Resp 18 S; Pulse Ox 98% on R/A; af2 16:31 Body Mass Index 29.70 (83.46 kg, 167.64 cm) dem1 MDM: 17:15 IV Saline Lock ordered. ml 17:15 Balance Staff Staker/Pulse Ox/q 15 min VS ordered. ml 17:15 Rhythm Strip to chart ordered. ml 17:15 Aspirin Chewable Tablet 324 mg PO once ordered. ml 17:16 CBC with Diff Ordered. EDMS 17:16 MED Profile Ordered. EDMS 17:16 CIP Ordered. EDMS 17:16 Troponin Ordered. EDMS 17:16 Magnesium Level Ordered. EDMS 17:16 FreeT4 with TSH Ordered. EDMS 17:16 Chest, 1 View Ordered. EDMS 17:17 Liver Profile Ordered. EDMS 17:43 Financial registration complete. [email or web address] 17:51 [facility] Payment Agreement was scanned into [employer] and attached to record. [email or web address] 18:47 CBC with Diff Reviewed. ml 18:47 MED Profile Reviewed. ml 18:47 CIP Reviewed. ml 18:47 FreeT4 with TSH Reviewed. ml 18:47 Liver Profile Reviewed. ml 18:47 Troponin Reviewed. ml 18:47 Magnesium Level Reviewed. ml 19:20 ECG WITH READING ER PHYS+CARDIAG ordered. EDMS 19:23 Confirm accurate psychiatric medication list and times of last dosage ordered. mm11 19:23 Detain Pt Until Medically/PFS Cleared ordered. mm11 19:24 Drug Eval Toxicology ED Only Ordered. EDMS 19:49 ACETAMINOPHEN LEVEL Ordered. EDMS 19:49 ETHYL ALCOHOL (ETHANOL) Ordered. EDMS 19:49 SALICYLATE LEVEL Ordered. EDMS 19:49 THYROID STIMULATING HORMONE Ordered. EDMS 20:18 Admission / Observation Status ordered. EDMS 20:19 TROPONIN Ordered. EDMS 20:19 BASIC METABOLIC PROFILE Ordered. EDMS 20:19 COMPLETE BLOOD COUNT Ordered. EDMS 20:19 TROPONIN Ordered. EDMS 20:30 TROPONIN Ordered. EDMS 10/06 09:31 T-Sheet-- Draft Copy was scanned into [employer] and attached to record. gb 12:01 Fingerstick Blood Sugar Ordered. EDMS 13:23 NO ADDED SALT DIET ordered. EDMS 10/07 17:26 ECG/EKG was scanned into [employer] and attached to record. gb Administered Medications: 10/05 17:31 Drug: Aspirin 324 mg [aspirin 81 mg chewable tablet (4 tabs)] Route: PO; ld5 Signatures: Dispatcher [employer] EDMS David Iraheta MD MD Jose Clark RN RN bcj Michelson, Staci, RN RN [facility] Erinn Trotter, Reg Reg gb Bronson Griffiths, DO DO mm11 Carrie Francis RN RN af2 Nettie Rivas, Reg Reg [id number] Ana Guillermo RN ld5 The chart was reviewed and I authenticate all verbal orders and agree with the evaluation and treatment provided.Corrections: (The following items were deleted from the chart) 19:49 19:24 ACETAMINOPHEN LEVEL+LAB ordered. EDMS EDMS 19:49 19:24 ETHYL ALCOHOL (ETHANOL)+LAB ordered. EDMS EDMS 19:49 19:24 SALICYLATE LEVEL+LAB ordered. EDMS EDMS 19:49 19:24 THYROID STIMULATING HORMONE+LAB ordered. EDMS EDMS 20:30 20:19 TROPONIN ordered. EDMS EDMS 20:56 20:18 2 GRAM SODIUM DIET ordered. EDMS EDMS 10/06 13:23 10/05 20:56 NPO FOR TEST/PROCEDURE ordered. EDMS EDMS Attachments: 17:51 [facility] Payment Agreement [email or web address] 10/06 09:31 T-Sheet-- Draft Copy 10/07 17:26 ECG/EKG Chart Complete MTDD
--- NOTE | 2016-10-08 15:57 | EDDOCDS ---
Nurse's Notes [facility] Name: Juan Daigle Age: 76 yrs Sex: Male : 1940 Arrival Date: 10/05/2016 Time: 16:19 Bed Admit Hold Private MD: Diagnosis: Syncope and collapse-With sinus arrythmia Presentation: 10/05 16:23 Presenting complaint: EMS states: was at [facility] for routine visit and noted srm to have abnormal ekg. pt states pain comes and goes to just below left axilla. Adult Sepsis Screening: The patient does not have new or worsening altered mentation. Patient's respiratory rate is less than 22. Systolic blood pressure is greater than 100. Patient has a qSOFA score of 0- Negative Sepsis Screen. Suicide/Homicide risk assessment- the patient denies having any suicidal and/or homicidal ideations and does not present with any other emotional, behavioral or mental health complaints. 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 Transition of care: patient was received from dr pelaez at [facility]. 16:23 Acuity: PAT Level 3 [facility] 16:23 Method Of Arrival: Ambulance [facility] 16:30 Care prior to arrival: IV initiated. Saline lock initiated. Glucose check. fsbs 105. 20 srm g left AC. Triage Assessment: 16:28 General: Appears in no apparent distress, Behavior is appropriate for age, cooperative. srm Pain: Denies pain. The patient is triaged at the bedside. See Assessment in Nurses Notes section of ED record. Neurological: Level of Consciousness is awake, alert, Oriented to person, place, Service Station Helper are equal bilaterally Moves all extremities. Full function Speech is normal, Facial symmetry appears normal, Pupils are PERRLA. Cardiovascular:. Respiratory: Airway is patent Respiratory effort is even, unlabored. Historical: - Allergies: no known allergies; - Home Meds: 1. metformin 1,000 mg Oral tab 1 tab 2 times per day 2. lovastatin 20 mg Oral tab 1 tab once daily 3. furosemide 20 mg Oral tab 1 tab once daily 4. carvedilol 3.125 mg oral tab 2 times per day 5. risperidone 2 mg oral tab 1 tab once daily 6. aspirin 81 mg Oral TbEC 1 tab once daily 7. lisinopril 5 mg Oral tab 1 tab once daily - PMHx: Bipolar disorder; CAD; CHF; Diabetes - NIDDM: controlled; Hypertension; LBBB; Macular Degeneration; - PSHx: none; - Social history: Smoking status: Patient uses tobacco products, current every day smoker. No barriers to communication noted, The patient speaks fluent Icelandic, Speaks appropriately for age. - Family history: Not pertinent. - : Unable to assess if pt is on anticoagulants. Unable to Verify Home Med List with the patient / caregiver. Note have med list from PMD but unknown if pt has been taking meds. sep 19 was on plavix but not on today's med list from PMD. - Exposure Risk Screening:: None identified. Screenin:23 Screening information is obtained from the patient. Fall risk: At risk due to age, The af2 following interventions are performed due to a positive Fall Risk Screen: Fall Risk is added to Special Handling on the patient Summary Screen. A Fall Risk Bracelet was applied to the patient. Side Rails are placed in the up position. A Call Guillen is given with instruction to call for help when getting out of bed. Fall Alert bracelet is placed on the patient. Assistance ADL's: requires no assistance with activities of daily living. Abuse/DV Screen: The patient / caregiver reports he/she is: not in a situation that causes fear, pain or injury. Nutritional screening: No deficits noted. Advance Directives: Currently, there is no health care proxy. home support is adequate. Assessment: 16:32 General: Appears in no apparent distress, Behavior is cooperative, rambling speech. srm EENT: No deficits noted. Respiratory: Airway is patent Respiratory effort is even, unlabored, Breath sounds are clear bilaterally. GI: Abdomen is non- distended Bowel sounds present X 4 quads. Derm: No deficits noted. 16:47 General: pt talking to TV- appears content. srm 18:27 General: Appears in no apparent distress, Behavior is cooperative. General: visitor at [facility] bedside. pt been talking since arrival either to the TV or to people. pt voices no c/o. Neurological: Level of Consciousness is awake, alert, Oriented to person, place, Moves all extremities. Full function Speech is normal, Facial symmetry appears normal. Cardiovascular: Rhythm is sinus arrythmia. Respiratory: Airway is patent Respiratory effort is even, unlabored, Breath sounds are clear bilaterally. 19:15 General: Appears in no apparent distress, Behavior is cooperative, Assumed care of pt af2 at this time. Resp easy and unlabored. Pt visiting with sister at bedside. Offers no complaints. . Neurological: Level of Consciousness is awake, alert, Oriented to person, place. Cardiovascular: Rhythm is occasional unifocal pvc's. Respiratory: Airway is patent Respiratory effort is even, unlabored, Breath sounds are clear bilaterally. Derm: Skin is normal. 20:13 General: Lilian (sister) [phone]. ld5 20:25 General: Appears in no apparent distress, Behavior is cooperative, pt lying on af2 stretcher- talking to himself. offers no complaints to this public relations writer. resp easy and unlabored. hospitalist at bedside to examine pt. will continue to monitor. . 21:02 General: report given to DC Lamaapplied technologist hold nurse. for further documentation af2 refer to [place] inpt charting.. Vital Signs: 16:26 BP 142 / 78 (auto/); srm 16:27 Pulse 64 MON; Pulse Ox 100% ; srm 16:31 BP 142 / 78; Pulse 66; Resp 18; Temp 97.6(TE); Pulse Ox 100% on R/A; Weight 83.46 kg; dem1 Height 5 ft. 6 in. (167.64 cm); Pain 0/10; 16:41 BP 153 / 74 (auto/); srm 16:42 Pulse 64 MON; Pulse Ox 100% ; srm 16:56 Pulse 64 MON; Pulse Ox 100% ; srm 16:56 BP 149 / 70 (auto/); srm 17:11 BP 137 / 95 (auto/); srm 17:12 Pulse 66 MON; Resp 18; Pulse Ox 98% ; srm 17:26 Pulse 46 MON; Pulse Ox 100% ; srm 17:26 BP 152 / 76 (auto/); srm 17:41 BP 142 / 84 (auto/); srm 17:41 Pulse 52 MON; Resp 18; Pulse Ox 100% ; srm 19:06 BP 135 / 64 (auto/); af2 19:07 Pulse 66 MON; Resp 18 S; Pulse Ox 98% on R/A; af2 16:31 Body Mass Index 29.70 (83.46 kg, 167.64 cm) [facility] Vitals: 16:31 Log In Time N/A - ambulance arrival. [facility] ED Course: 16:21 Patient visited by Lilia Valentino, Supervisor In Circuit Testing. deg 16:21 Patient moved to Waiting deg 16:21 Patient moved to 14 deg 16:26 Triage Initiated srm 16:31 Patient visited by Adin Andrade. dem1 16:31 The patient / caregiver is instructed regarding the plan of care and ED course. Patient srm has correct armband on for positive identification. Placed in gown. Bed in low position. Call light in reach. Side rails up X2. surveillance monitor on. Pulse ox on. NIBP on. 16:31 Pt greeted and oriented to ED. Patient advised of names of staff involved in care, dem1 location of call guillen, wait times and NPO status. 16:31 Maintain field IV. Dressing intact. Good blood return noted. Site clean & dry. srm 16:33 Patient visited by Angela Yang RN. srm 17:02 David Iraheta MD is Attending Physician. ml 17:02 Patient visited by David Iraheta MD. ml 17:50 Patient name changed from Juan\S\\S\Daigle\S\ to Juan\S\ \S\Daigle. EDMS 17:51 [facility] Payment Agreement was scanned into [employer] and attached to record. ks16 18:28 Patient visited by Angela Yang RN. srm 19:03 Report given to a errol rn. srm 19:15 Carrie Francis RN is Primary Nurse. af2 19:17 Chest, 1 View Returned. EDMS 19:32 Patient visited by Linda Curry PCA. cln 19:32 EKG done. (by ED staff). Reviewed by David Iraheta MD. cln 19:44 Attending Physician role handed off by David Iraheta MD mm11 19:44 Bronson Griffiths DO is Attending Physician. mm11 19:47 Rich Otero is Hospitalizing Provider. mm11 19:48 Drug Eval Toxicology ED Only Sent. af2 20:24 Patient visited by Carrie Francis RN. af2 20:26 Patient visited by Carrie Francis,DC. af2 21:02 Patient visited by Carrie Francis,DC. af2 21:29 Patient moved to 19 af2 23:33 Patient moved to Admit Hold ml3 23:43 Patient moved to 19 skye 23:43 Patient moved to Admit Hold aug 28 07:45 Primary Nurse role handed off by Carrie Francis RN kr3 09:31 T-Sheet-- Draft Copy was scanned into [employer] and attached to record. 13:43 Patient visited by Jose Clark RN. [facility] 14:54 No apparent distress. Resting quietly. Awaiting bed assignment. [facility] 14:54 No procedures done that require assistance. [facility] 10/07 17:26 ECG/EKG was scanned into [employer] and attached to record. gb Administered Medications: 10/05 17:31 Drug: Aspirin 324 mg [aspirin 81 mg chewable tablet (4 tabs)] Route: PO; ld5 Order Results: Lab Order: CBC with Diff; SPEC'M 10/05/16 17:51 Test: WHITE BLOOD COUNT; Value: 6.4; Range: 4.0-10.0; Units: K/mm3; Status: F Test: RED BLOOD COUNT; Value: 3.89; Range: 4.30-6.10; Abnormal: Below low normal; Units: M/mm3; Status: F Test: HEMOGLOBIN; Value: 11.8; Range: 14.0-18.0; Abnormal: Below low normal; Units: g/dl; Status: F Test: HEMATOCRIT; Value: 36.0; Range: 42.0-52.0; Abnormal: Below low normal; Units: %; Status: F Test: MEAN CORPUSCULAR VOLUME; Value: 92.6; Range: 80.0-96.0; Units: fl; Status: F Test: MEAN CORPUSCULAR HEMOGLOBIN; Value: 30.5; Range: 27.0-33.0; Units: pg; Status: F Test: MEAN CORPUSCULAR HGB CONC; Value: 32.9; Range: 32.0-36.5; Units: g/dl; Status: F Test: RED CELL DISTRIBUTION WIDTH; Value: 13.0; Range: 11.5-14.5; Units: %; Status: F Test: PLATELET COUNT, AUTOMATED; Value: 163; Range: 150-450; Units: k/mm3; Status: F Test: NEUTROPHILS %; Value: 63.8; Range: 36.0-66.0; Units: %; Status: F Test: LYMPH %; Value: 24.5; Range: 24.0-44.0; Units: %; Status: F Test: MONO %; Value: 6.3; Range: 0.0-5.0; Abnormal: Above high normal; Units: %; Status: F Test: EOS %; Value: 3.1; Range: 0.0-3.0; Abnormal: Above high normal; Units: %; Status: F Test: BASO %; Value: 0.8; Range: 0.0-1.0; Units: %; Status: F Test: LARGE UNSTAINED CELL %; Value: 1.5; Range: 0.0-4.0; Units: %; Status: F Test: NEUTROPHILS #; Value: 4.1; Range: 1.8-7.7; Units: K/mm3; Status: F Test: LYMPH #; Value: 1.7; Range: 1.5-4.5; Units: K/mm3; Status: F Test: MONO #; Value: 0.4; Range: 0.0-0.8; Units: K/mm3; Status: F Test: EOS #; Value: 0.2; Range: 0.0-0.50; Units: K/mm3; Status: F Test: BASO #; Value: 0.0; Range: 0.0-0.2; Units: K/mm3; Status: F Test: LARGE UNSTAINED CELL #; Value: 0.1; Range: 0.0-0.4; Units: K/mm3; Status: F Lab Order: [facility]; [facility] 10/05/16 17:51 Test: GLUCOSE, FASTING; Value: 82; Range: 83-110; Abnormal: Below low normal; Units: MG/DL; Status: F Test: BLOOD UREA NITROGEN; Value: 20; Range: 7-18; Abnormal: Above high normal; Units: MG/DL; Status: F Test: CREATININE FOR GFR; Value: 0.66; Range: 0.70-1.30; Abnormal: Below low normal; Units: MG/DL; Status: F Test: GLOMERULAR FILTRATION RATE; Value: > 60.0; Range: >42; Status: F Test: SODIUM LEVEL; Value: 141; Range: 136-145; Units: MEQ/L; Status: F Test: POTASSIUM SERUM; Value: 4.3; Range: 3.5-5.1; Units: MEQ/L; Status: F Test: CHLORIDE LEVEL; Value: 103; Range: 98-107; Units: MEQ/L; Status: F Test: CARBON DIOXIDE LEVEL; Value: 31; Range: 21-32; Units: MEQ/L; Status: F Test: ANION GAP; Value: 7; Range: 8-16; Abnormal: Below low normal; Units: MEQ/L; Status: F Test: CALCIUM LEVEL; Value: 9.1; Range: 8.8-10.2; Units: MG/DL; Status: F Test Note: ; Units are mL/min/1.73 m2 Chronic Kidney Disease Staging per NKF: Stage I & II GFR >=60 Normal to Mildly Decreased Stage III GFR 30-59 Moderately Decreased Stage IV GFR 15-29 Severely Decreased Stage V GFR <15 Very Little GFR Left ESRD GFR <15 on MANAGER FOOD Lab Order: CIP; SPEC'M 10/05/16 17:51 Test: CPK CREATINE PHOSPHOKINASE; Value: 86; Range: 39-308; Units: U/L; Status: F Test: CK-MB VALUE MASS; Value: 3.9; Range: 0.0-3.6; Abnormal: Above high normal; Units: NG/ML; Status: F Test: MB/CK RELATIVE INDEX; Value: 4.53; Range: < OR =4; Abnormal: Above high normal; Status: F Test Note: ; DIAGNOSIS CRITERIA MMB ng/ml Relative Index (RI) NON-AMI < or = 5 N/A VERDE ZONE > 5 < or = 4 AMI > 5 > 4 Lab Order: Troponin; SPEC'M 10/05/16 17:51 Test: TROPONIN I; Value: 0.02; Range: < 0.10; Units: NG/ML; Status: F Test Note: ; Troponin I Reference Interval for Rivalfox LOCI: 99th Percentile= 0.00-0.045 ng/ml Risk Stratification: <= 0.10 ng/ml Decreased Risk for Adverse Clinical Events. 0.10-1.50 ng/ml Increased Risk for Adverse Clinical Events. Evaluation of additional criterion and/or repeat testing in 2-6 hours is suggested to rule out myocardial damage. >= 1.50 ng/ml Indicative of Myocardial Injury. Lab Order: Magnesium Level; 10/05/16 17:51 Test: MAGNESIUM LEVEL; Value: 1.8; Range: 1.8-2.4; Units: MG/DL; Status: F Lab Order: FreeT4 with TSH; 10/05/16 17:51 Test: THYROID STIMULATING HORMONE; Value: 0.301; Range: 0.358-3.740; Abnormal: Below low normal; Units: uIU/ML; Status: F Test: FREE T4; Value: 1.13; Range: 0.76-1.46; Units: NG/DL; Status: F Lab Order: Liver Profile; 10/05/16 17:51 Test: AST/SGOT; Value: 13; Range: 15-37; Abnormal: Below low normal; Units: U/L; Status: F Test: ALT/SGPT; Value: 22; Range: 12-78; Units: U/L; Status: F Test: ALKALINE PHOSPHATASE; Value: 67; Range: 45-117; Units: U/L; Status: F Test: BILIRUBIN,TOTAL; Value: 0.4; Range: 0.2-1.0; Units: MG/DL; Status: F Test: BILIRUBIN,DIRECT; Value: 0.1; Range: 0.0-0.2; Units: MG/DL; Status: F Test: TOTAL PROTEIN; Value: 6.7; Range: 6.4-8.2; Units: GM/DL; Status: F Test: ALBUMIN; Value: 3.6; Range: 3.2-5.2; Units: GM/DL; Status: F Test: ALBUMIN/GLOBULIN RATIO; Value: 1.16; Range: 1.00-1.93; Status: F Lab Order: ACETAMINOPHEN LEVEL; 10/05/16 17:51 Test: ACETAMINOPHEN LEVEL; Value: < 2.0; Range: 10.0-30.0; Abnormal: Below low normal; Units: UG/ML; Status: F Lab Order: ETHYL ALCOHOL (ETHANOL); 10/05/16 17:51 Test: ETHYL ALCOHOL (ETHANOL); Value: < 0.003; Range: 0.000-0.010; Units: %; Status: F Lab Order: SALICYLATE LEVEL; 10/05/16 17:51 Test: SALICYLATE LEVEL; Value: 3.9; Range: 5.0-30.0; Abnormal: Below low normal; Units: MG/DL; Status: F Lab Order: THYROID STIMULATING HORMONE; [facility] 10/05/16 17:51 Test: THYROID STIMULATING HORMONE; Value: 0.297; Range: 0.358-3.740; Abnormal: Below low normal; Units: uIU/ML; Status: F Lab Order: TROPONIN; [facility] 10/05/16 20:36 Test: TROPONIN I; Value: 0.02; Range: < 0.10; Units: NG/ML; Status: F Test Note: ; Troponin I Reference Interval for Rivalfox LOCI: 99th Percentile= 0.00-0.045 ng/ml Risk Stratification: <= 0.10 ng/ml Decreased Risk for Adverse Clinical Events. 0.10-1.50 ng/ml Increased Risk for Adverse Clinical Events. Evaluation of additional criterion and/or repeat testing in 2-6 hours is suggested to rule out myocardial damage. >= 1.50 ng/ml Indicative of Myocardial Injury. Lab Order: BASIC METABOLIC PROFILE; [facility] 10/06/16 05:20 Test: GLUCOSE, FASTING; Value: 123; Range: 83-110; Abnormal: Above high normal; Units: MG/DL; Status: F Test: BLOOD UREA NITROGEN; Value: 16; Range: 7-18; Units: MG/DL; Status: F Test: CREATININE FOR GFR; Value: 0.63; Range: 0.70-1.30; Abnormal: Below low normal; Units: MG/DL; Status: F Test: GLOMERULAR FILTRATION RATE; Value: > 60.0; Range: >42; Status: F Test: SODIUM LEVEL; Value: 141; Range: 136-145; Units: MEQ/L; Status: F Test: POTASSIUM SERUM; Value: 4.0; Range: 3.5-5.1; Units: MEQ/L; Status: F Test: CHLORIDE LEVEL; Value: 106; Range: 98-107; Units: MEQ/L; Status: F Test: CARBON DIOXIDE LEVEL; Value: 28; Range: 21-32; Units: MEQ/L; Status: F Test: ANION GAP; Value: 7; Range: 8-16; Abnormal: Below low normal; Units: MEQ/L; Status: F Test: CALCIUM LEVEL; Value: 8.9; Range: 8.8-10.2; Units: MG/DL; Status: F Test Note: ; Units are mL/min/1.73 m2 Chronic Kidney Disease Staging per NKF: Stage I & II GFR >=60 Normal to Mildly Decreased Stage III GFR 30-59 Moderately Decreased Stage IV GFR 15-29 Severely Decreased Stage V GFR <15 Very Little GFR Left ESRD GFR <15 on MANAGER FOOD Lab Order: COMPLETE BLOOD COUNT; 10/06/16 05:20 Test: WHITE BLOOD COUNT; Value: 7.5; Range: 4.0-10.0; Units: K/mm3; Status: F Test: RED BLOOD COUNT; Value: 4.22; Range: 4.30-6.10; Abnormal: Below low normal; Units: M/mm3; Status: F Test: HEMOGLOBIN; Value: 13.1; Range: 14.0-18.0; Abnormal: Below low normal; Units: g/dl; Status: F Test: HEMATOCRIT; Value: 39.2; Range: 42.0-52.0; Abnormal: Below low normal; Units: %; Status: F Test: MEAN CORPUSCULAR VOLUME; Value: 93.0; Range: 80.0-96.0; Units: fl; Status: F Test: MEAN CORPUSCULAR HEMOGLOBIN; Value: 31.1; Range: 27.0-33.0; Units: pg; Status: F Test: MEAN CORPUSCULAR HGB CONC; Value: 33.5; Range: 32.0-36.5; Units: g/dl; Status: F Test: RED CELL DISTRIBUTION WIDTH; Value: 12.7; Range: 11.5-14.5; Units: %; Status: F Test: PLATELET COUNT, AUTOMATED; Value: 168; Range: 150-450; Units: k/mm3; Status: F Lab Order: TROPONIN; 10/06/16 12:01 Test: TROPONIN I; Value: < 0.02; Range: < 0.10; Units: NG/ML; Status: F Test Note: ; Troponin I Reference Interval for Rivalfox LOCI: 99th Percentile= 0.00-0.045 ng/ml Risk Stratification: <= 0.10 ng/ml Decreased Risk for Adverse Clinical Events. 0.10-1.50 ng/ml Increased Risk for Adverse Clinical Events. Evaluation of additional criterion and/or repeat testing in 2-6 hours is suggested to rule out myocardial damage. >= 1.50 ng/ml Indicative of Myocardial Injury. Lab Order: TROPONIN; SPEC'M 10/06/16 05:20 Test: TROPONIN I; Value: 0.02; Range: < 0.10; Units: NG/ML; Status: F Test Note: ; Troponin I Reference Interval for [employer] LOCI: 99th Percentile= 0.00-0.045 ng/ml Risk Stratification: <= 0.10 ng/ml Decreased Risk for Adverse Clinical Events. 0.10-1.50 ng/ml Increased Risk for Adverse Clinical Events. Evaluation of additional criterion and/or repeat testing in 2-6 hours is suggested to rule out myocardial damage. >= 1.50 ng/ml Indicative of Myocardial Injury. Lab Order: Fingerstick Blood Sugar; SPEC'M 10/05/16 22:58 Test: BEDSIDE GLUCOSE; Value: 106; Range: 83-110; Units: MG/DL; Status: F Lab Order: Fingerstick Blood Sugar; SPEC'M 10/06/16 11:47 Test: BEDSIDE GLUCOSE; Value: 116; Range: 83-110; Abnormal: Above high normal; Units: MG/DL; Status: F Radiology Order: Chest, 1 View Test: Chest, 1 View REASON FOR EXAMINATION: cp; PORTABLE CHEST:; ; AP portable view of the chest is performed and compared to prior study of; 02/10/2016. Mild cardiomegaly is unchanged since the prior study. There is; pulmonary venous hypertension and increased interstitial markings diffusely; bilaterally which are also stable. The mediastinal silhouette is unchanged.; ; IMPRESSION:; ; Stable mild cardiomegaly, pulmonary venous hypertension and increased; interstitial markings. Findings may represent chronic interstitial fibrotic; change or edema. There are no new findings.; ; ; Signed by; Julio Cesar Verde MD 10/05/2016 08:16 P; Outcome: 19:47 Decision to Hospitalize by Provider. mm11 10/06 14:54 Discharge Assessment: patient administered narcotics - no. The following High Risk bcj Discharge criteria are identified: None. Admitted to PCU accompanied by nurse, via stretcher, on monitor. Condition: stable. No special radiology studies were completed. Property :Personal belongings accompany Pt. 14:55 Patient left the ED. [facility] Signatures: Dispatcher [employer] EDMS David Iraheta MD MD Lilia Valentino, Supervisor In Circuit Testing Unit deg Jose Clark, RN RN Angela Villareal RN DC [facility] Yovany, Angelica Zambrano, RN Erinn Moses, Reg Reg gb Saskia MckeonConorClarissa, Supervisor In Circuit Testing Unit ml3 Mayra BrooksRN RN kr3 Bronson Griffiths, DO DO mm11 Ana GuillermoRN RN ld5 Adin Andrade dem1 Carrie Francis RN RN af2 Nettie Rivas, Reg Reg ks16 Linda Curry, MANSOOR YACHT MASTER cln Corrections: (The following items were deleted from the chart) 10/05 19:49 19:48 THYROID STIMULATING HORMONE+LAB sent. af2 EDMS 19:49 19:48 SALICYLATE LEVEL+LAB sent. af2 EDMS 19:49 19:48 ETHYL ALCOHOL (ETHANOL)+LAB sent. af2 EDMS 19:49 19:48 ACETAMINOPHEN LEVEL+LAB sent. af2 EDMS Chart Complete MTDD
--- NOTE | 2016-10-08 15:57 | EDDOCDS ---
Physician Documentation [facility] Name: Juan Daigle Age: 76 yrs Sex: Male : 1940 Arrival Date: 10/05/2016 Time: 16:19 Bed Admit Hold Private MD: Disposition: 10/05/16 19:47 Hospitalization ordered by Rich Otero for Inpatient Admission. Preliminary diagnosis is Syncope and collapse - With sinus arrythmia. - Bed requested for PCU. - Status is Inpatient Admission. bcj - Condition is Stable. - Problem is an ongoing problem. - Symptoms are unchanged. Historical: - Allergies: no known allergies; - Home Meds: 1. metformin 1,000 mg Oral tab 1 tab 2 times per day 2. lovastatin 20 mg Oral tab 1 tab once daily 3. furosemide 20 mg Oral tab 1 tab once daily 4. carvedilol 3.125 mg oral tab 2 times per day 5. risperidone 2 mg oral tab 1 tab once daily 6. aspirin 81 mg Oral TbEC 1 tab once daily 7. lisinopril 5 mg Oral tab 1 tab once daily - PMHx: Bipolar disorder; CAD; CHF; Diabetes - NIDDM: controlled; Hypertension; LBBB; Macular Degeneration; - PSHx: none; - Social history: Smoking status: Patient uses tobacco products, current every day smoker. No barriers to communication noted, The patient speaks fluent Urdu, Speaks appropriately for age. - Family history: Not pertinent. - : Unable to assess if pt is on anticoagulants. Unable to Verify Home Med List with the patient / caregiver. Note have med list from PMD but unknown if pt has been taking meds. sep 19 was on plavix but not on today's med list from PMD. - Exposure Risk Screening:: None identified. Vital Signs: 10/05 16:26 BP 142 / 78 (auto/); srm 16:27 Pulse 64 MON; Pulse Ox 100% ; srm 16:31 BP 142 / 78; Pulse 66; Resp 18; Temp 97.6(TE); Pulse Ox 100% on R/A; Weight 83.46 kg / dem1 184 lbs; Height 5 ft. 6 in. (167.64 cm); Pain 0/10; 16:41 BP 153 / 74 (auto/); srm 16:42 Pulse 64 MON; Pulse Ox 100% ; srm 16:56 Pulse 64 MON; Pulse Ox 100% ; srm 16:56 BP 149 / 70 (auto/); srm 17:11 BP 137 / 95 (auto/); srm 17:12 Pulse 66 MON; Resp 18; Pulse Ox 98% ; srm 17:26 Pulse 46 MON; Pulse Ox 100% ; srm 17:26 BP 152 / 76 (auto/); srm 17:41 BP 142 / 84 (auto/); srm 17:41 Pulse 52 MON; Resp 18; Pulse Ox 100% ; srm 19:06 BP 135 / 64 (auto/); af2 19:07 Pulse 66 MON; Resp 18 S; Pulse Ox 98% on R/A; af2 16:31 Body Mass Index 29.70 (83.46 kg, 167.64 cm) dem1 MDM: 17:15 IV Saline Lock ordered. ml 17:15 Title I Instructional Assistant/Pulse Ox/q 15 min VS ordered. ml 17:15 Rhythm Strip to chart ordered. ml 17:15 Aspirin Chewable Tablet 324 mg PO once ordered. ml 17:16 CBC with Diff Ordered. EDMS 17:16 MED Profile Ordered. EDMS 17:16 CIP Ordered. EDMS 17:16 Troponin Ordered. EDMS 17:16 Magnesium Level Ordered. EDMS 17:16 FreeT4 with TSH Ordered. EDMS 17:16 Chest, 1 View Ordered. EDMS 17:17 Liver Profile Ordered. EDMS 17:43 Financial registration complete. [id number] 17:51 [facility] Payment Agreement was scanned into [employer] and attached to record. [email or web address] 18:47 CBC with Diff Reviewed. ml 18:47 MED Profile Reviewed. ml 18:47 CIP Reviewed. ml 18:47 FreeT4 with TSH Reviewed. ml 18:47 Liver Profile Reviewed. ml 18:47 Troponin Reviewed. ml 18:47 Magnesium Level Reviewed. ml 19:20 ECG WITH READING ER PHYS+CARDIAG ordered. EDMS 19:23 Confirm accurate psychiatric medication list and times of last dosage ordered. mm11 19:23 Detain Pt Until Medically/PFS Cleared ordered. mm11 19:24 Drug Eval Toxicology ED Only Ordered. EDMS 19:49 ACETAMINOPHEN LEVEL Ordered. EDMS 19:49 ETHYL ALCOHOL (ETHANOL) Ordered. EDMS 19:49 SALICYLATE LEVEL Ordered. EDMS 19:49 THYROID STIMULATING HORMONE Ordered. EDMS 20:18 Admission / Observation Status ordered. EDMS 20:19 TROPONIN Ordered. EDMS 20:19 BASIC METABOLIC PROFILE Ordered. EDMS 20:19 COMPLETE BLOOD COUNT Ordered. EDMS 20:19 TROPONIN Ordered. EDMS 20:30 TROPONIN Ordered. EDMS 10/06 09:31 T-Sheet-- Draft Copy was scanned into [employer] and attached to record. gb 12:01 Fingerstick Blood Sugar Ordered. EDMS 13:23 NO ADDED SALT DIET ordered. EDMS 10/07 17:26 ECG/EKG was scanned into [employer] and attached to record. gb Administered Medications: 10/05 17:31 Drug: Aspirin 324 mg [aspirin 81 mg chewable tablet (4 tabs)] Route: PO; ld5 Signatures: Dispatcher [employer] EDMS David Iraheta MD MD Jose Clark RN RN bcj Michelson, Staci, RN RN [facility] Erinn Trotter, Reg Reg gb Bronson Griffiths, DO DO mm11 Carrie Francis RN RN af2 Nettie Rivas, Reg Reg ks16 Ana Guillermo RN ld5 The chart was reviewed and I authenticate all verbal orders and agree with the evaluation and treatment provided.Corrections: (The following items were deleted from the chart) 19:49 19:24 ACETAMINOPHEN LEVEL+LAB ordered. EDMS EDMS 19:49 19:24 ETHYL ALCOHOL (ETHANOL)+LAB ordered. EDMS EDMS 19:49 19:24 SALICYLATE LEVEL+LAB ordered. EDMS EDMS 19:49 19:24 THYROID STIMULATING HORMONE+LAB ordered. EDMS EDMS 20:30 20:19 TROPONIN ordered. EDMS EDMS 20:56 20:18 2 GRAM SODIUM DIET ordered. EDMS EDMS 10/06 13:23 10/05 20:56 NPO FOR TEST/PROCEDURE ordered. EDMS EDMS Attachments: 17:51 [facility] Payment Agreement [email or web address] 10/06 09:31 T-Sheet-- Draft Copy 10/07 17:26 ECG/EKG Chart Complete MTDD
--- NOTE | 2016-10-08 20:43 | IPN ---
DATE: 10/08/2016 The patient is seen and examined at the bedside. Chart has been reviewed. This morning, the patient denies any chest pain, pressure, tightness, shortness of breath, palpitations, lightheadedness, or near syncope. Yesterday, the patient continued to have bradycardia. At 1230 hours rate was 46 with no complaints of dizziness, lightheadedness, chest pain, pressure or diaphoresis, nausea, vomiting, or epigastric pain. Temperature is 97.5, pulse 65, respiratory rate 20, blood pressure 119/55, 98% on room air. GENERAL: The patient is speaking fast, states that he has been sleeping better last night. LUNGS: Diminished breath sounds but clear to auscultation. HEART: S1, S2. Episodes of sinus bradycardia. ABDOMEN: Soft, nontender, nondistended. EXTREMITIES: Trace edema. LABORATORY DATA: Lab data has been reviewed. ASSESSMENT AND PLAN: 76-year-old male with a history of bipolar disorder managed by outpatient psychiatrist on chronic Risperdal 2 mg daily, questionable noncompliance with his medications, history of coronary artery disease, heart failure with ejection fraction of 35 to 40% on prior echo in June 2016, dyslipidemia, tobacco dependence, presented to the emergency room with two syncopal episodes in the past 48 hours. EKG showed first degree AV block. Dr. Johnson has been consulted for management. IMPRESSION: 1. Symptomatic sinus bradycardia with recurrent syncope and first degree AV block on EKG. Troponin has been negative. The patient has been started on Ranexa. Continued on Lisinopril and Brilinta. Plans are for transfer to [facility] this week for angiogram. Continue to hold off on Coreg due to bradycardia and first degree AV block. The patient's family has not decided on proceeding with transfer until the patient's psychiatric bipolar disorder is managed. We have contacted psychiatry for management of the patient's bipolar disorder. 2. Bipolar disorder, unstable. The patient has not slept for several days. He had been drinking caffeinated beverages last . Psychiatrist has been consulted. Appreciate input and management of current psychiatric issues. 3. Hypertension. Currently on Lisinopril and oral Lasix. Off of the Coreg due to symptomatic bradycardia and syncopal episodes times two. 4. History of congestive heart failure (CHF), ejection fraction of 35%. On Lisinopril, Lasix and Lipitor. Off of the beta blockade due to symptomatic bradycardia and syncopal episode and first degree AV block. At this time, he appears to be compensated. Strict input and output. Monitor patient's respiratory status. MTDD
[2016-10-08] MEDS: LORazepam 0.5 MG TAB PO SCH (20:46)
[2016-10-08] MEDS: DIVALPROEX 500MG *ER* TAB PO SCH (20:46)
[2016-10-09 04:02] VITALS: BP 158/78
[2016-10-09 05:50] LABS: ANION GAP 6 MEQ/L (8-16); BLOOD UREA NITROGEN 18 MG/DL (7-18); CALCIUM LEVEL 8.8 MG/DL (8.8-10.2); CARBON DIOXIDE LEVEL 31 MEQ/L (21-32); CHLORIDE LEVEL 106 MEQ/L (98-107); CREATININE FOR GFR 0.81 MG/DL (0.70-1.30); GLOMERULAR FILTRATION RATE > 60.0 (>42); GLUCOSE, FASTING 113 MG/DL (83-110); POTASSIUM SERUM 4.1 MEQ/L (3.5-5.1); SODIUM LEVEL 143 MEQ/L (136-145)
[2016-10-09 06:00] LABS: MEAN CORPUSCULAR HEMOGLOBIN 31.1 pg (27.0-33.0); MEAN CORPUSCULAR HGB CONC 33.7 g/dl (32.0-36.5); MEAN CORPUSCULAR VOLUME 92.3 fl (80.0-96.0); RED CELL DISTRIBUTION WIDTH 12.9 % (11.5-14.5); WHITE BLOOD COUNT 5.5 K/mm3 (4.0-10.0)
[2016-10-09 08:00] VITALS: BP 107/52
[2016-10-09] MEDS: HumaLOG INSULIN (NovoLOG) PER UNIT SC SCH ×4 (08:27→20:02)
[2016-10-09] MEDS: NICOTINE 14 MG/24 HR TRANSDERMAL TD SCH (08:29)
[2016-10-09] MEDS: RANOLAZINE 500 MG ER TAB PO SCH (08:31)
[2016-10-09] MEDS: risperiDONE 2 MG TAB PO SCH (08:31)
[2016-10-09] MEDS: ATORVASTATIN 20 MG TAB PO SCH (08:31)
[2016-10-09] MEDS: FUROSEMIDE 20 MG TAB PO SCH (08:31)
[2016-10-09] MEDS: TICAGRELOR 90 MG TABLET (BRILINTA) PO SCH ×2 (08:32→20:09)
[2016-10-09] MEDS: LISINOPRIL 5 MG TAB PO SCH (08:32)
[2016-10-09] MEDS: ENOXAPARIN 40 MG/0.4 ML SYRINGE (J1650) SC SCH (08:34)
--- NOTE | 2016-10-09 11:06 | IPN ---
DATE: 10/09/2016 The patient received Ativan last night and was able to sleep throughout the evening. He has required a sitter due to manic episode of his bipolar disorder. He currently does not complain of any chest pain, pressure, tightness, lightheadedness , dizziness. Denies any syncopal episode. Telemetry has been showing trigeminy and bigeminy with potassium and magnesium being therapeutic levels. VITAL SIGNS: Temperature is 97.8, pulse 72, respiratory rate 18, blood pressure 158/70, 99% on room air. GENERAL: The patient is awake, alert, oriented times three. He is speaking very fast at the bedside, tangential and discusses multiple topics when asked a directed question. LUNGS: Diminished breath sounds but clear to auscultation. HEART: S1, S2. Sinus rhythm. ABDOMEN: Soft, nontender, nondistended. EXTREMITIES: Trace edema. LABORATORY DATA: CBC and metabolic panel have been reviewed. ASSESSMENT AND PLAN: This is a 76-year-old male with a history of bipolar disorder managed by outpatient psychiatrist on chronic Risperdal 2 mg daily, questionable noncompliance with his medications, history of coronary artery disease, congestive heart failure (CHF) with ejection fraction of 35 to 40% on prior echo in June 2016, dyslipidemia, tobacco dependence, presented to the emergency room with two syncopal episodes in the past 48 hours. EKG showed first degree AV block. Dr. Johnson has been consulted, book illustrator, for management. IMPRESSION: 1. Symptomatic sinus bradycardia with recurrent syncope and first degree AV block on EKG. Troponin has been negative. The patient has been started on Ranexa, Lisinopril and Brilinta. Plans are for transfer to [facility] this week for angiogram. Continue to hold off on Coreg due to bradycardia and first degree AV block. The patient's family has not decided on proceeding with transfer until the patient's psychiatric bipolar disorder is stabilized. Appreciate psychiatry input and management. Currently, the patient is on Depakote and Ativan as needed. He is continued on Risperdal 2 mg daily. Defer to patient's family regarding decision for transfer. The patient is requesting to be discharged home, but he does not appear to understand the consequences of his illness. 2. Bipolar disorder, unstable. The patient has not slept for several days until last night when he received the Ativan. The patient is currently on Depakote, Risperdal and Ativan at night and as needed. Appreciate input and management by our psychiatrist. 3. Hypertension. On Lisinopril and oral Lasix. Off of the Coreg due to symptomatic bradycardia and syncopal episodes times two. 4. Abnormal telemetry with multiple episodes of bigeminy and trigeminy. At this time, the patient has his electrolytes optimized. The patient will need transfer to [place] for angiogram to further evaluate his coronaries. 5. History of congestive heart failure (CHF), ejection fraction of 35%. On Lisinopril, Lasix and Lipitor. Off of the beta blockade due to symptomatic bradycardia and first degree AV block. He appears to be compensated and euvolemic. Strict input and output. Monitor his respiratory status. DISPOSITION: Transfer to [place] this week once the patient's psychiatric issues are stabilized and family is in agreement and gives consent. HOLLIE
[2016-10-09 12:00] VITALS: BP 101/56
[2016-10-09 16:00] VITALS: BP 110/58
[2016-10-09] MEDS: LORazepam 0.5 MG TAB PO SCH (20:09)
[2016-10-09] MEDS: DIVALPROEX 500MG *ER* TAB PO SCH (20:10)
[2016-10-09 21:06] VITALS: BP 117/65
[2016-10-09 23:59] VITALS: BP 145/69
--- NOTE | 2016-10-10 00:56 | CR ---
DATE OF CONSULTATION: 10/09/2016 REFERRING PROVIDER: Dr. Kristina Santiago REASON FOR THE CONSULTATION: Bradycardia. HISTORY OF THE PRESENT ILLNESS: A 76-year-old male well known by the office, and he was seen last month and the plan was to proceed with a cardiac catheterization scheduled for 09/29/2016 but the patient's family, his sister, called and cancelled the cardiac catheterization. He then was admitted at [facility] on 10/05/2016, and he was bradycardic. He was initially seen at the emergency room (ER) and upon talking to him myself, it seemed that he was having chest pain. There is a report by the nursing staff that he also was having episodes of lightheadedness and dizziness, and near syncope. He was admitted for further management and monitoring, and his beta bijal was discontinued. He was about to be transferred for a cardiac catheterization on 10/05/2016 but in view of his history of schizoaffective disorder and lack of support at home, he could not be transferred. He was evaluated by psychiatry, and he was started on medications. I was told that he is doing much better. When I saw Mr. Juan Daigle this evening, he was sitting in a chair in his room in no acute distress at rest. He says that he has not been having chest pain since in the hospital, and there is no report of lightheadedness or dizziness but his EKG rhythms through telemetry were reviewed and revealed episodes of intermittent 2:1 AV block and complete heart block, asymptomatic. He denies any shortness of breath or palpitations. He has been ambulating. He also was started on Brilinta on admission as well as Xanax, and I have discontinued the Xanax today. He has no cough or hemoptysis, or fever. He has no nausea, vomiting, diarrhea, melena or hematemesis. He denies any bleeding. There is no focal manifestation. There is no dysuria, polyuria or hematuria. He has a past medical history positive for chronic bilateral pitting edema, recently diagnosed left bundle branch block last year, diabetes mellitus and further cardiac workup done in the month of May revealed a moderately depressed global left ventricular systolic function at 35-40% and his nuclear stress test revealed a fixed apical and inferoapical defect, LVEF was calculated at 37%. He also had some abdominal bruits, but further workup was negative. He also has a history of hypertension, hyperlipidemia. There is no prior history of myocardial infarction, atrial fibrillation, cerebrovascular accident, significant valvular heart disease, kidney disease, thyroid disorders. PAST SURGICAL HISTORY: Unremarkable. MEDICATIONS AT HOME: - aspirin 81 mg by mouth daily - carvedilol 3.125 mg by mouth twice a day - Lasix 20 mg by mouth daily - lisinopril 5 mg by mouth daily - lovastatin 20 mg by mouth daily - metformin 1000 mg by mouth twice a day CURRENT MEDICATIONS: - Lovenox 40 mg subcu daily - atorvastatin 20 mg by mouth daily - Brilinta 90 mg by mouth twice a day - furosemide 20 mg by mouth daily - lisinopril 5 mg by mouth daily - Risperdal 2 mg by mouth daily - nicotine patch 14 mg apply daily - lorazepam 0.5 mg by mouth nightly - lorazepam 0.5 mg every 4 hours as needed for anxiety - Depakote ER 500 mg by mouth nightly - ondansetron 4 mg IV every 6 hours as needed for nausea or vomiting - Tylenol 650 mg every 4 hours as needed for mild pain or fever - Glucagon 1 mg subcu as directed as needed for hypoglycemia - glucose tablets 16 grams by mouth as needed as directed for hypoglycemia - D50 25 mL IV as directed as needed for hypoglycemia - Humalog as per protocol - atropine sulfate 0.5 mg every 1 hour as needed IV for symptomatic bradycardia. FAMILY HISTORY: Noncontributory. SOCIAL HISTORY: The patient lives with his sister, and he has been smoking for about five decades. He denies any ethyl alcohol (ETOH) abuse or illicit drugs. ALLERGIES: He has no known drug allergies. On physical examination, the patient is alert and oriented, in no acute distress at rest and his last vital signs today revealed a blood pressure of 117/65 with a pulse of 73, respirations 18 and his temperature is 98.6 degrees Fahrenheit with an oxygen saturation of 93-99% on room air. Examination of the head, ears, eyes, nose and throat: Atraumatic. Neck is supple. No jugular venous distention (JVD) or carotid bruits. The lungs were clear bilaterally on auscultation without any wheezing or crackles. The heart examination revealed normal S1 and S2 without gallops. The point of maximum impulse (PMI) is not displaced. There is no rub. I could not appreciate any murmurs. Abdomen is soft and nontender, bowel sounds are active. Extremities revealed trace to +1 bilateral lower leg edema. Neurologic examination is negative for focal deficit. Peripheral pulses, dorsalis pedis were +1 and equal. LABORATORY: CBC done today revealed a WBC of 5.5, hemoglobin 12.6, hematocrit 37.3 and platelets 192,000. BMP revealed a sodium of 143, potassium 4.1, chloride 106, CO2 31, BUN 18, creatinine 0.81, GFR more than 60, fasting glucose 113, calcium 8.8. Serum magnesium is 2.3. Serum ethyl alcohol was less than 0.003, serum salicylates were 3.9 and serum acetaminophen was less than 2.0. Electrocardiogram on admission revealed normal sinus rhythm with sinus arrhythmia, heart rate was 54 beats per minute, and there was first-degree AV block. There is underlying left bundle branch block. There is possible non-conducted PACs. Telemetry strips were reviewed and revealed intermittent 2:1 AV block and complete heart block, asymptomatic. Chest x-ray on admission revealed mild cardiomegaly and pulmonary venous hypertension and increased interstitial markings. No effusion. IMPRESSION: A 76-year-old male with multiple risk factors for coronary artery disease and was recently diagnosed last year with left bundle branch block and was found to have a moderately depressed global left ventricular systolic function. His nuclear stress test revealed a fixed defect involving the apex and the immediate plan was to proceed with a cardiac catheterization and this was arranged for him to be done tomorrow but upon reviewing the note from psychiatry , it stated that it is not safe to go home and this will be discussed with the invasive team Barker then further recommendations will be given. In the meantime, I will keep him nothing by mouth after a light breakfast. This was discussed with him, and he has agreed to proceed. The family also was informed today by the hospitalist. He will continue current medications and further recommendation will be given after discussing with psychiatry in the morning. It was a pleasure to participate in the care of Mr. Juan Daigle for his underlying cardiac condition. I will continue to monitor him along with you. He was referred for a cardiac catheterization and not a regular pacemaker because he might need a bi-V AICD pacemaker in view of his underlying left bundle branch block and the low ejection fraction. [facility] HOSPITALDolores
[2016-10-10 05:22] VITALS: BP 160/85
[2016-10-10 06:02] LABS: MEAN CORPUSCULAR HEMOGLOBIN 30.5 pg (27.0-33.0); MEAN CORPUSCULAR VOLUME 92.6 fl (80.0-96.0); RED CELL DISTRIBUTION WIDTH 12.8 % (11.5-14.5); WHITE BLOOD COUNT 5.9 K/mm3 (4.0-10.0)
[2016-10-10 06:19] LABS: ANION GAP 8 MEQ/L (8-16); BLOOD UREA NITROGEN 17 MG/DL (7-18); CALCIUM LEVEL 9.1 MG/DL (8.8-10.2); CARBON DIOXIDE LEVEL 30 MEQ/L (21-32); CHLORIDE LEVEL 104 MEQ/L (98-107); GLOMERULAR FILTRATION RATE > 60.0 (>42); GLUCOSE, FASTING 99 MG/DL (83-110); SODIUM LEVEL 142 MEQ/L (136-145)
[2016-10-10] MEDS: HumaLOG INSULIN (NovoLOG) PER UNIT SC SCH ×4 (07:30→21:00)
[2016-10-10 08:00] VITALS: BP 130/67
[2016-10-10] MEDS: TICAGRELOR 90 MG TABLET (BRILINTA) PO SCH ×2 (08:18→21:23)
[2016-10-10] MEDS: NICOTINE 14 MG/24 HR TRANSDERMAL TD SCH (08:18)
[2016-10-10] MEDS: ATORVASTATIN 20 MG TAB PO SCH (08:18)
[2016-10-10] MEDS: FUROSEMIDE 20 MG TAB PO SCH (08:19)
[2016-10-10] MEDS: ENOXAPARIN 40 MG/0.4 ML SYRINGE (J1650) SC SCH (08:19)
[2016-10-10] MEDS: LISINOPRIL 5 MG TAB PO SCH (08:19)
[2016-10-10] MEDS: risperiDONE 2 MG TAB PO SCH (08:19)
[2016-10-10 12:00] VITALS: BP 132/68
--- NOTE | 2016-10-10 13:54 | IPNPDOC ---
Text Note Date of Service The patient was seen on 10/10/16. NOTE Subjective: Patient is a 76 year old male with a PMHx of DM2, CAD, Systolic CHF ( EF: 35-40%), DLP, tobacco dependence, Bipolar disorder who presented to the ER with 2 episodes of syncope. He was admitted to telemetry and he was found to have sinus brdadycardia and first degree AV block. Cardiology has been consulted. Patient has been seen and examined at the bedside. Clinically he notes no complaints. Objective: Vitals (See below) General: Lying in bed, no acute distress, comfortable, AAOx3 HEENT: NC, AT CVS: RRR, +S1S2 Lungs: Fair air entry b/l, -w/r/r Abdomen: Soft, ND, NT, +BSx4 Extremities: +PPx4, 1+ pitting edema, -calf tenderness Assessment and plan: 1. Syncope - likely 2/2 cardiogenic etiology - 2/2 bradycardia and 1st degree AV block - no further syncopal events, no chest pain, shortness of breath or palpitations - phyiscal non-revealing - troponin negative x3 - Discussed with Cardiology; likely 2/2 medications, has been discontinued from Carvedilol; and at this point will hold off on cardiac cath / PM / AICD placement - will c/w telemetry monitoring to ensure no reoccurrence of bradycardia 2. Bipolar disorder, episodes of mar - patient has been manic - Psychiatry has been consulted and his dose of medications have been adjusted - will c/w Depakote, Risperdal and Ativan 3. HTN - c/w Lisinopril and furosemide 4. Episodes of bigeminy and trigeminy - electrotype abnormalities have been corrected 5. Systolic CHF (EF: 35-40%) - c/w Lisinopril, Furosemide and Atorvastatin - c/w strict ins/outs, daily weights, head of bed elevation Disposition - When medically cleared will be transferred to inpatient psychiatry unit [facility] Y[facility], I+O [facility] Y[facility] I+O Laboratory Tests 10/10/16 05:22 Calcium Level 9.1, Red Blood Count 4.32, Mean Corpuscular Volume 92.6, Mean Corpuscular Hemoglobin 30.5, Mean Corpuscular Hemoglobin Concent 33.0, Red Cell Distribution Width 12.8 Vital Signs Date Time Temp Pulse Resp B/P Pulse Ox O2 Delivery O2 Flow Rate FiO2 10/10/16 12:00 97.3 63 18 132/68 99 Room Air I&O- Last 24 Hours up to 6 AM 10/10/16 06:00 Intake Total 4060 ml Output Total 0 ml Balance 4060 ml ANA TONY MD Oct 10, 2016 13:54
[2016-10-10 16:00] VITALS: BP 135/75
[2016-10-10 20:46] VITALS: BP 110/51
--- NOTE | 2016-10-10 20:52 | IPN ---
DATE: 10/10/2016 CHIEF COMPLAINT: Feels better. SUBJECTIVE: He is seen for follow up. Says he feels better. He is sitting in the chair, says he had a good night sleep, has been eating. He also indicated he had been informed about cardiac work up, and that he will need to go to [place] for that. Says his moods are good. MENTAL STATUS EXAMINATION: He is neat, he is cooperative. He is coherent. Speak is a bit more increased in amount, but he is not pressured, at times mildly tangential, but easily directed. He spoke of past global affairs, for example how the first heart transplant was done in the late [facility] in [facility]. Affect is reactive, fairly broad. Denies any thoughts of harming himself or anyone else. At present does not appear internally preoccupied. No overt delusions elicited. No fluctuation of consciousness. He is alert. Oriented to place and person, not fully to time. He thought it was the 13 of October. Judgment is good. Insight improved. ASSESSMENT: Bipolar disorder, current episode manic. He is clinically improved, though his speech is somewhat more productive than yesterday. He has not been disruptive, has maintained behavioral control. RECOMMENDATIONS: Increase the Depakote to 750 mg at night, as recommended yesterday. Obtain a valproic acid level in 5 days. Continue with Ativan. Suggest using it during the day as needed. I understand cardiology is hoping to send him to [place] tomorrow for further work up, and he is aware of this. Once he is had his cardiac matters at rest, within [place], may need to be seen by psychiatry for an assessment, and will need to follow up with psychiatry as well, as outpatient, if he is not admitted to hospital. Should there be any questions, please call. Will sign off for now.
[2016-10-10] MEDS: DIVALPROEX 250MG *ER* TAB PO SCH (21:23)
[2016-10-11] VITALS (7 sets, daily range): BP systolic 125–171; BP diastolic 63–78
[2016-10-11] MEDS: LORazepam 0.5 MG TAB PO SCH ×2 (02:17→20:09)
--- NOTE | 2016-10-11 02:51 | IPN ---
DATE: 10/10/2016 Mr. Juan Daigle was seen earlier this morning, he was sitting in the chair in no acute distress at rest. He remained free of any high-degree AV block last night. He denies any chest pain or shortness of breath. He denies any palpitations. He has been ambulating. There is no report of bleeding. He has a cough, but no hemoptysis. He has no nausea, vomiting, diarrhea, melena, or hematemesis. PHYSICAL EXAMINATION: On physical examination, the patient is alert and oriented , in no acute distress at rest, and his last vital signs for today revealed a blood pressure of 110/51 with a pulse of 64, respirations 18, and his maximum temperature is 97.9 degrees Fahrenheit with an oxygen saturation of 97-99% on room air. HEENT: Atraumatic. NECK: Supple, no jugular venous distention (JVD). LUNGS: Clear bilaterally on auscultation without any wheezing or crackles. HEART: The heart examination revealed normal S1 and S2 without gallops. The point of maximum impulse (PMI) is displaced inferiorly and laterally. There is no rub. There is a systolic murmur grade 1/6 at the lower left sternal border and at the apex with some radiation to the axilla. ABDOMEN: Soft and nontender. Bowel sounds are active. EXTREMITIES: Revealed just 1+ bilateral lower leg edema. NEUROLOGICAL: Grossly is negative for focal deficit. LABORATORY DATA: CBC revealed a WBC of 5.9, hemoglobin 13.2, hematocrit 40.0, and platelets 213,000. BMP revealed a sodium of 142, potassium 4.0, chloride 104, CO2 30, BUN 17, creatinine 0.8, GFR more than 60, fasting glucose 99, and calcium 9.1. Serum magnesium was 2.3. Rhythm strips/telemetry were reviewed and revealed normal sinus rhythm with a left bundle branch block pattern, ST-T abnormality, and isolated PVCs, first-degree AV block. Mr. Juan Daigle seems to be stable from a cardiac point of view on current medications and I will continue the same. The case was discussed with the hospitalist as well as the invasive team in [place], and Dr. Sutton for pacemaker placement. Patient has been asymptomatic and he will be monitored here while in the hospital on telemetry and if he remains free of symptoms and no significant heart block, he can be transferred to psychiatry for further management. If he is still having chest pain or high-degree AV block, he should be transferred to [place] for further management. In the meantime, conservative management is recommended. I will continue to monitor him along with you as needed while in the hospital. It was a pleasure to participate in the care of Mr. Juan Daigle for his underlying cardiac condition. I will continue to monitor him along with you. Please do not hesitate to call if any questions. HOLLIE
[2016-10-11 06:18] LABS: MEAN CORPUSCULAR HEMOGLOBIN 31.2 pg (27.0-33.0); MEAN CORPUSCULAR HGB CONC 33.6 g/dl (32.0-36.5); MEAN CORPUSCULAR VOLUME 92.9 fl (80.0-96.0); RED CELL DISTRIBUTION WIDTH 12.9 % (11.5-14.5); WHITE BLOOD COUNT 6.4 K/mm3 (4.0-10.0)
[2016-10-11 06:27] LABS: ANION GAP 8 MEQ/L (8-16); BLOOD UREA NITROGEN 22 MG/DL (7-18); CALCIUM LEVEL 9.2 MG/DL (8.8-10.2); CARBON DIOXIDE LEVEL 28 MEQ/L (21-32); CHLORIDE LEVEL 104 MEQ/L (98-107); CREATININE FOR GFR 0.83 MG/DL (0.70-1.30); GLOMERULAR FILTRATION RATE > 60.0 (>42); GLUCOSE, FASTING 103 MG/DL (83-110); SODIUM LEVEL 140 MEQ/L (136-145)
[2016-10-11] MEDS: ENOXAPARIN 40 MG/0.4 ML SYRINGE (J1650) SC SCH (08:37)
[2016-10-11] MEDS: HumaLOG INSULIN (NovoLOG) PER UNIT SC SCH ×4 (08:37→20:10)
[2016-10-11] MEDS: risperiDONE 2 MG TAB PO SCH (08:38)
[2016-10-11] MEDS: LISINOPRIL 5 MG TAB PO SCH (08:38)
[2016-10-11] MEDS: NICOTINE 14 MG/24 HR TRANSDERMAL TD SCH (08:38)
[2016-10-11] MEDS: ATORVASTATIN 20 MG TAB PO SCH (08:38)
[2016-10-11] MEDS: FUROSEMIDE 20 MG TAB PO SCH (08:38)
[2016-10-11] MEDS: TICAGRELOR 90 MG TABLET (BRILINTA) PO SCH ×2 (08:38→20:09)
--- NOTE | 2016-10-11 11:21 | IPNPDOC ---
Text Note Date of Service The patient was seen on 10/11/16. NOTE Subjective: Patient is a 76 year old male with a PMHx of DM2, CAD, Systolic CHF ( EF: 35-40%), DLP, tobacco dependence, Bipolar disorder who presented to the ER with 2 episodes of syncope. He was admitted to telemetry and he was found to have sinus bradycardia and first degree AV block. Cardiology has been consulted. Patient has been seen and examined at the bedside. He denies any problems and has no new complaints. Objective: Vitals (See below) General: Lying in bed, no acute distress, comfortable, AAOx3 HEENT: NC, AT CVS: RRR, +S1S2 Lungs: Fair air entry b/l, -w/r/r Abdomen: Soft, ND, NT, +BSx4 Extremities: +PPx4, 1+ pitting edema, -calf tenderness Assessment and plan: 1. Syncope - likely 2/2 cardiogenic etiology - 2/2 bradycardia and 1st degree AV block - no further syncopal events, no chest pain, shortness of breath or palpitations - physical non-revealing - troponin negative x3 - Discussed with Cardiology; likely 2/2 medications (Carvedilol on hold) - At this point will hold off on cardiac cath / PM / AICD placement - will c/w telemetry monitoring to ensure no reoccurrence of bradycardia - if there is no abnormal arrhythmias by tomorrow will medically clear for psychiatry 2. Bipolar disorder, episodes of mar - patient has been manic - Psychiatry has been consulted and his dose of medications have been adjusted - Discussed with Dr. Adkins - patient does appear to show signs of improvement - will c/w Depakote, Risperdal and Ativan 3. HTN - c/w Lisinopril and furosemide 4. Episodes of bigeminy and trigeminy - electrotype abnormalities have been corrected 5. Systolic CHF (EF: 35-40%) - c/w Lisinopril, Furosemide and Atorvastatin - c/w strict ins/outs, daily weights, head of bed elevation 6. DM2 - c/w ISS 7. CAD - c/w ticagrelor 8. Systolic CHF (EF: 35-40%) - c/w furosemide, lisinopril - BB discontinued 9. DLP - c/w atorvastatin 10. Tobacco dependence - c/w nicotine patch 11. DVT prophylaxis - c/w Lovenox Disposition - When medically cleared will be transferred to inpatient psychiatry unit [facility], I+O [facility] I+O Laboratory Tests 10/11/16 05:30 Calcium Level 9.2, Red Blood Count 4.03 L, Mean Corpuscular Volume 92.9, Mean Corpuscular Hemoglobin 31.2, Mean Corpuscular Hemoglobin Concent 33.6, Red Cell Distribution Width 12.9 Vital Signs Date Time Temp Pulse Resp B/P Pulse Ox O2 Delivery O2 Flow Rate FiO2 10/11/16 08:38 147/65 10/11/16 08:00 97.5 75 18 100 Room Air I&O- Last 24 Hours up to 6 AM 10/11/16 06:00 Intake Total 1440 ml Output Total 0 ml Balance 1440 ml ANA TONY MD Oct 11, 2016 11:21
[2016-10-11] MEDS: LORazepam 0.5 MG TAB PO PRN (16:36)
[2016-10-11] MEDS: DIVALPROEX 250MG *ER* TAB PO SCH (20:09)
[2016-10-12 04:00] VITALS: BP 123/66
--- NOTE | 2016-10-12 04:12 | IPN ---
DATE: 10/11/2016 Mr. Juan Daigle was seen this evening, he was sitting in a chair in his room in no acute distress at rest. He has not been having any chest pain and he has been ambulating. He also denies any shortness of breath or palpitations. His telemetry strips were reviewed and there are no new episodes of complete heart block or total AV block since after beta bijal and the Ranexa. PHYSICAL EXAMINATION: Patient is alert and oriented, in no acute distress at rest. His last vital signs this evening revealed a blood pressure of 130/63 with a pulse of 75, respirations 20, and his temperature is 95.9 degrees Fahrenheit with an oxygen saturation of 100% on room air. Examination of the head, ears, eyes, nose and throat: Atraumatic. Neck is supple. No jugular venous distention (JVD). The lungs were clear bilaterally on auscultation without any wheezing or crackles. The heart examination revealed normal S1 and S2 without gallops. The point of maximal impulse (PMI) is not displaced. There is no rub. Abdomen is soft and nontender. Bowel sounds are active. Extremities revealed trace to +1 bilateral lower leg edema. Neurological examination is negative for focal deficit. LABORATORIES: CBC revealed a WBC of 6.4, hemoglobin 12.6, hematocrit 37.5, and platelets 204,000. BMP revealed a sodium of 140, potassium 4.0, chloride 104, CO2 28, BUN 22, creatinine 0.83, GFR more than 60, fasting glucose 103, and calcium 9.2. IMPRESSION: 1. 76-year-old male with multiple risk factors for coronary artery disease and was recently found to have moderately depressed global left ventricular systolic function. He was admitted last with an episode of near syncope and was found to be bradycardic while in the emergency room (ER). He was also complaining of shortness of breath with chest pain with activities. The initial plan was to proceed with cardiac catheterization, but he has been asymptomatic on current medications and he has not been having episode of complete heart block, he will be monitored. His cardiac condition seems to be stable. Also, his psychiatric condition also will need to be stabilized. I will continue current cardiac medications and we will continue telemetry. While in the hospital, I will reassess left ventricular ejection fraction (LVEF) with an echocardiogram. A permanent regular pacemaker was not implanted because patient, if his LVEF remains low, will benefit from automatic implantable cardioverter-defibrillator (AICD) and/or a biventricular pacemaker AICD. 2. Hypertension, under control. 3. Hyperlipidemia, on a statin. 4. History of smoking, currently on nicotine patch and patient reports that he has not been smoking. 5. Bipolar disorder and this is being addressed with psychiatry. It was a pleasure participating in the care of Mr. Juan Daigle for his underlying cardiac condition. Once again, he appears to be stable and I will continue to monitor along with you. I will see him again after the echocardiogram. In the meantime, he also will be started on small dose of long-acting nitrate. MTDD
[2016-10-12 06:12] LABS: MEAN CORPUSCULAR HEMOGLOBIN 31.3 pg (27.0-33.0); MEAN CORPUSCULAR HGB CONC 33.4 g/dl (32.0-36.5); MEAN CORPUSCULAR VOLUME 93.5 fl (80.0-96.0); RED CELL DISTRIBUTION WIDTH 12.8 % (11.5-14.5); WHITE BLOOD COUNT 6.1 K/mm3 (4.0-10.0)
[2016-10-12 06:30] LABS: ANION GAP 9 MEQ/L (8-16); BLOOD UREA NITROGEN 19 MG/DL (7-18); CALCIUM LEVEL 9.5 MG/DL (8.8-10.2); CARBON DIOXIDE LEVEL 28 MEQ/L (21-32); CHLORIDE LEVEL 103 MEQ/L (98-107); CREATININE FOR GFR 0.76 MG/DL (0.70-1.30); GLOMERULAR FILTRATION RATE > 60.0 (>42); GLUCOSE, FASTING 119 MG/DL (83-110); POTASSIUM SERUM 4.2 MEQ/L (3.5-5.1); SODIUM LEVEL 140 MEQ/L (136-145)
[2016-10-12] MEDS: HumaLOG INSULIN (NovoLOG) PER UNIT SC SCH ×4 (07:39→20:35)
[2016-10-12 08:00] VITALS: BP 120/60
[2016-10-12] MEDS: TICAGRELOR 90 MG TABLET (BRILINTA) PO SCH ×2 (09:55→20:35)
[2016-10-12] MEDS: FUROSEMIDE 20 MG TAB PO SCH (10:01)
[2016-10-12] MEDS: LISINOPRIL 5 MG TAB PO SCH (10:02)
[2016-10-12] MEDS: ISOSORBIDE MON. (IMDUR) 30 MG XR TAB PO SCH (10:02)
[2016-10-12] MEDS: ATORVASTATIN 20 MG TAB PO SCH (10:02)
[2016-10-12] MEDS: risperiDONE 2 MG TAB PO SCH (10:02)
[2016-10-12] MEDS: NICOTINE 14 MG/24 HR TRANSDERMAL TD SCH (10:05)
[2016-10-12 12:00] VITALS: BP 92/66
[2016-10-12 12:03] LABS: MAGNESIUM LEVEL 2.5 MG/DL (1.8-2.4)
[2016-10-12] MEDS: ENOXAPARIN 40 MG/0.4 ML SYRINGE (J1650) SC SCH (12:28)
--- NOTE | 2016-10-12 13:56 | IPNPDOC ---
Text Note Date of Service The patient was seen on 10/12/16. NOTE Subjective: Patient is a 76 year old male with a PMHx of DM2, CAD, Systolic CHF ( EF: 35-40%), DLP, tobacco dependence, Bipolar disorder who presented to the ER with 2 episodes of syncope. He was admitted to telemetry and he was found to have sinus bradycardia and first degree AV block. Cardiology has been consulted. Patient has been seen and examined at the bedside. He denies any problems and has no new complaints. Overnight he was found to be in third degree heart block and this morning he was found to have wide complex tachycardia. He remained asymptomatic during both events. Objective: Vitals (See below) General: Lying in bed, no acute distress, comfortable, AAOx3 HEENT: NC, AT CVS: RRR, +S1S2 Lungs: Fair air entry b/l, -w/r/r Abdomen: Soft, ND, NT, +BSx4 Extremities: +PPx4, 1+ pitting edema, -calf tenderness Assessment and plan: 1. Syncope - likely 2/2 cardiogenic etiology - 2/2 bradycardia and heart block ( 1st and 3rd degree heart block), episodes of wide complex tachycardia - no further syncopal events, no chest pain, shortness of breath or palpitations - physical non-revealing - troponin negative x3; stat troponin drawn after tachycardic episode today have been negative - will continue to trend - Magnesium level adequate - Discussed with Cardiology; likely 2/2 medications (Carvedilol on hold) - Initial plan was to hold off on cardiac cath / PM / AICD placement - may require transfer - will c/w telemetry monitoring - Discussed with Dr. Johnson - will get stat ECHO and will determine need to transfer after that point 2. Bipolar disorder, episodes of mar - patient has been manic - Psychiatry has been consulted and his dose of medications have been adjusted - Discussed with Dr. Adkins - patient does appear to show signs of improvement - will c/w Depakote, Risperdal and Ativan 3. HTN - c/w Lisinopril and furosemide 4. Episodes of bigeminy and trigeminy - electrotype abnormalities have been corrected 5. Systolic CHF (EF: 35-40%) - c/w Lisinopril, Furosemide and Atorvastatin - c/w strict ins/outs, daily weights, head of bed elevation 6. DM2 - c/w ISS 7. CAD - c/w ticagrelor 8. Systolic CHF (EF: 35-40%) - c/w furosemide, lisinopril - BB discontinued 9. DLP - c/w atorvastatin 10. Tobacco dependence - c/w nicotine patch 11. DVT prophylaxis - c/w Lovenox Disposition - Will likely need transfer to higher level of care for cardiac cath, AICD / PM placement VS,Fishbone, I+O VS, Fishbone, I+O Laboratory Tests 10/12/16 06:00 Calcium Level 9.5, Red Blood Count 4.45, Mean Corpuscular Volume 93.5, Mean Corpuscular Hemoglobin 31.3, Mean Corpuscular Hemoglobin Concent 33.4, Red Cell Distribution Width 12.8 Vital Signs Date Time Temp Pulse Resp B/P Pulse Ox O2 Delivery O2 Flow Rate FiO2 10/12/16 10:02 120/60 10/12/16 08:00 96.0 80 20 100 Room Air I&O- Last 24 Hours up to 6 AM 10/12/16 06:00 Intake Total 1440 ml Output Total 0 ml Balance 1440 ml ANA TONY MD Oct 12, 2016 13:56
[2016-10-12 16:00] VITALS: BP 113/54
--- NOTE | 2016-10-12 17:31 | ECGEPIP ---
Stationary ECG Study [facility] Test Date: 2016-10-12 Pat Name: KANDI VAZQUEZ Department: PCU Room: [place] [address] Gender: M [employer]: : 1940 Requested By: ANA TONY Order Number: [id number] Reading MD: Raghu Mckeon Measurements Intervals [place] Rate: 99 P: -84 DC: 267 QRS: 95 QRSD: 154 T: -86 QT: 434 QTc: 558 Interpretive Statements Underlying sinus rhythm First degree AV block Ventricular triplet followed by more sustained accelerated idioventricular rhythm at [address] bpm. Inferior leads show ST/T-wave abnormalities. Ventricular arrhythmia is new from 10/05/16. Electronically Signed On 10-12-2016 17:31:07 EST by Raghu Mckeon
[2016-10-12 20:00] VITALS: BP 137/59
[2016-10-12] MEDS: LORazepam 0.5 MG TAB PO SCH (20:35)
[2016-10-12] MEDS: DIVALPROEX 250MG *ER* TAB PO SCH (20:35)
[2016-10-12 23:59] VITALS: BP 100/55
[2016-10-13] VITALS (9 sets, daily range): BP systolic 111–168; BP diastolic 62–83
[2016-10-13 05:36] LABS: MEAN CORPUSCULAR HEMOGLOBIN 31.2 pg (27.0-33.0); MEAN CORPUSCULAR HGB CONC 34.4 g/dl (32.0-36.5); MEAN CORPUSCULAR VOLUME 90.6 fl (80.0-96.0); RED CELL DISTRIBUTION WIDTH 12.4 % (11.5-14.5); WHITE BLOOD COUNT 6.1 K/mm3 (4.0-10.0)
[2016-10-13 05:45] LABS: ANION GAP 8 MEQ/L (8-16); BLOOD UREA NITROGEN 19 MG/DL (7-18); CALCIUM LEVEL 9.1 MG/DL (8.8-10.2); CARBON DIOXIDE LEVEL 30 MEQ/L (21-32); CHLORIDE LEVEL 102 MEQ/L (98-107); CREATININE FOR GFR 0.73 MG/DL (0.70-1.30); GLOMERULAR FILTRATION RATE > 60.0 (>42); GLUCOSE, FASTING 107 MG/DL (83-110); POTASSIUM SERUM 4.3 MEQ/L (3.5-5.1); SODIUM LEVEL 140 MEQ/L (136-145)
--- NOTE | 2016-10-13 05:48 | ECHO ---
DATE OF PROCEDURE: 10/12/2016 DATE OF : 1940 AGE: 76 REFERRING PROVIDER: PATIENT LOCATION: Room 3229 REASON FOR ECHOCARDIOGRAM: Cardiomyopathy. 2D MEASUREMENTS: IVS: 1.0 cm LV: 5.3 cm LVPW: 1.1 cm LA: 3.9 cm Aorta: 3.3 cm IVC: 1.1 cm DOPPLER MEASUREMENTS: Peak velocity across the aortic valve: 1.5 m/s Peak velocity across the LVOT: 0.8 m/s Mitral E: 0.5 Mitral A: 0.7 Ratio 0.7 Maximum tricuspid valve velocity: 2.2 m/s 2D COMMENTS: 1. Normal left ventricular size, wall thickness and global left ventricular systolic function appears to be borderline depressed with an estimated left ventricular ejection fraction (LVEF) of 45-50%. The anterior septum was dyskinetic but seems to be randy in some views. 2. Normal left atrium. Normal right atrium and right ventricle. 3. The atrial septum appeared to be normal without evidence of defect or shunt. 4. Normal aortic root. 5. No pericardial effusion seen. 6. Minimally calcified aortic valve with normal leaflet excursion. Normal mitral annulus, tricuspid valve and pulmonic valve. The proximal pulmonary artery branches were not well visualized. 7. The inferior vena cava was normal in size, central venous pressure is most likely normal. DOPPLER: It detects trace mitral regurgitation and trace tricuspid regurgitation. The calculated pulmonary artery systolic pressure was normal. IMPRESSION: 1. Probably mildly depressed global left ventricular systolic function with regional wall motion abnormalities consistent with underlying left bundle branch block. There are features of left ventricular diastolic dysfunction, grade 1. 2. Aortic valve sclerosis without any significant aortic stenosis or aortic regurgitation. 3. Trace mitral regurgitation. 4. Trace tricuspid regurgitation with a normal calculated pulmonary artery systolic pressure. [facility]
--- NOTE | 2016-10-13 06:06 | IPN ---
DATE: 10/12/2016 Mr. Juan Daigle was seen earlier today. He was sitting in a chair, in no acute distress at rest. Last night, he had episodes of intermittent complete block and today, he developed a supraventricular tachycardia. He has remained asymptomatic without any chest pain, dizziness, syncope or near syncope. There is no report of bleeding. His serum troponin remain negative at less than 0.02. He underwent an echocardiogram today and this was reviewed and left ventricular systolic function seems to be higher when compared with prior evaluation done at the office last fall. On physical examination, patient is alert and oriented, in no acute distress at rest, and his last vital signs today revealed a blood pressure of 137/59 with a pulse of 75, respirations 20, and his maximum temperature was 94.4 degrees Fahrenheit with an oxygen saturation of 98% on room air. Examination of the head, ears, eyes, nose and throat: Atraumatic. Neck is supple. No jugular venous distention (JVD). No carotid bruits. The lungs were clear bilaterally on auscultation without any wheezing or crackles. The heart examination revealed normal S1 and S2 without gallops. The point of maximal impulse (PMI) is not displaced. There was no rub. I could not elicit any murmurs. Abdomen is soft and nontender. Bowel sounds are active. Extremities revealed +1 bilateral lower leg edema. Neurological examination is negative for focal deficit. LABORATORY DATA: CBC done today revealed a WBC of 6.1, hemoglobin 13.9, hematocrit 41.7, and platelets 216,000. BMP revealed a sodium of 140, potassium 4.2, chloride 103, CO2 28, BUN 19, creatinine 0.76, GFR more than 60, fasting glucose 119, calcium 9.5. Magnesium is 2.5. Troponin done today was less than 0.02 times two. Mr. Juan Daigle is a 76-year-old male with history of hypertension, hyperlipidemia, diabetes mellitus, and cardiomyopathy with left bundle branch block. He had a cardiac evaluation done last and other time his left ventricular ejection fraction (LVEF) was reported to be about 35-40%. He was started on treatment and he was suppose to have the cardiac catheterization but he could not proceed because of family support. He was admitted last because of near syncope and patient was having chest pain. He was found to have intermittent complete block heart block and his beta-bijal/carvedilol as well as the Ranexa were discontinued. Given the fact he has been free of complete block for 48 hours, he started again having the same problem and today, he went into a supraclavicular tachycardia. His echocardiogram revealed a low normal global left ventricular systolic function and I will proceed with application of permanent pacemaker. It will be done tomorrow by Dr. Mckeon and the case was discussed with him. The case was also discussed with his hospitalist. Prior to that echocardiogram, the initial plan was to proceed with an automatic implantable cardioverter defibrillator (AICD) but his LVEF has improved and there is no need at the present for an AICD and/or biventricular pacemaker. After the implantation of the pacemaker, he will be restarted on his beta-bijal, the carvedilol. It was a pleasure participating in the care of Mr. Juan Daigle for his underlying cardiac condition. I will continue to monitor along with you while in the hospital. HOLLIE
[2016-10-13] MEDS: HumaLOG INSULIN (NovoLOG) PER UNIT SC SCH ×4 (07:30→21:35)
[2016-10-13] MEDS: risperiDONE 2 MG TAB PO SCH (08:37)
[2016-10-13] MEDS: ATORVASTATIN 20 MG TAB PO SCH (08:37)
[2016-10-13] MEDS: FUROSEMIDE 20 MG TAB PO SCH (08:37)
[2016-10-13] MEDS: LISINOPRIL 5 MG TAB PO SCH (08:37)
[2016-10-13] MEDS: ISOSORBIDE MON. (IMDUR) 30 MG XR TAB PO SCH (08:37)
[2016-10-13] MEDS: NICOTINE 14 MG/24 HR TRANSDERMAL TD SCH (08:40)
--- NOTE | 2016-10-13 12:56 | IPNPDOC ---
Text Note Date of Service The patient was seen on 10/13/16. NOTE Subjective: Patient is a 76 year old male with a PMHx of DM2, CAD, Systolic CHF ( EF: 35-40%), DLP, tobacco dependence, Bipolar disorder who presented to the ER with 2 episodes of syncope. He was admitted to telemetry and he was found to have sinus bradycardia and first degree AV block. Cardiology has been consulted. Patient has been seen and examined at the bedside. He does not have any new complaints today. He reports he is feeling well, denies chest pain, palpitations , or SOB. He is anxious about the procedure today. Objective: Vitals (See below) General: Lying in bed, no acute distress, comfortable, AAOx3 HEENT: NC, AT CVS: RRR, +S1S2 Lungs: Fair air entry b/l, -w/r/r Abdomen: Soft, ND, NT, +BSx4 Extremities: +PPx4, trace pitting edema, -calf tenderness Assessment and plan: 1. Syncope - likely 2/2 cardiogenic etiology - 2/2 bradycardia and heart block ( 1st and 3rd degree heart block), episodes of wide complex tachycardia - no further syncopal events, no chest pain, shortness of breath or palpitations - physical non-revealing - ECHO 10/12: EF of 45-50%, Grade 1 diastolic dysfunction, - Troponin negative and electrolytes optimized - will c/w telemetry monitoring - Discussed with Dr. Johnson; plan for pacemaker placement today with Dr. Mckeon - Will re-evaluate starting rate control after PM placement 2. Bipolar disorder, s/p episodes of mar - patient has been manic - Psychiatry has been consulted and his dose of medications have been adjusted - Discussed with Dr. Adkins - patient does appear to show signs of improvement - c/w Depakote, Risperdal and Ativan 3. HTN - c/w Lisinopril and furosemide 4. Episodes of bigeminy and trigeminy - electrotype abnormalities have been corrected 5. Compensated, Systolic and Diastolic CHF (EF: 35-40%) - c/w Lisinopril, Furosemide and Atorvastatin - c/w strict ins/outs, daily weights, head of bed elevation 6. DM2 - c/w ISS 7. CAD - c/w ticagrelor 8. Systolic CHF (EF: 45-50%) - c/w furosemide, lisinopril - BB discontinued 9. DLP - c/w atorvastatin 10. Tobacco dependence - c/w nicotine patch 11. DVT prophylaxis - c/w Lovenox Disposition - Will have PM placed today VS,Fishbone, I+O VS, Fishbone, I+O Laboratory Tests 10/13/16 05:18 Calcium Level 9.1, Red Blood Count 4.29 L, Mean Corpuscular Volume 90.6, Mean Corpuscular Hemoglobin 31.2, Mean Corpuscular Hemoglobin Concent 34.4, Red Cell Distribution Width 12.4 Vital Signs Date Time Temp Pulse Resp B/P Pulse Ox O2 Delivery O2 Flow Rate FiO2 10/13/16 12:00 95.4 87 20 111/71 98 Room Air I&O- Last 24 Hours up to 6 AM 10/13/16 06:00 Intake Total 1320 ml Output Total 0 ml Balance 1320 ml ANA TONY MD Oct 13, 2016 12:56
[2016-10-13] MEDS ORDERED: BACITRACIN PWD 50,000 UNITS VIAL As Ordered ONE (13:20)
[2016-10-13] MEDS ORDERED: LIDOCAINE 1% SDV INJ 30 ML VIAL As Ordered ONE (13:20)
[2016-10-13] MEDS ORDERED: ISOVUE-300 61% 50ML VIAL (Q9967) As Ordered ONE (13:20)
[2016-10-13] MEDS ORDERED: AMIODARONE 150MG/3ML INJ (J0282) As Ordered ONE (13:35)
[2016-10-13] MEDS ORDERED: ceFAZolin 2 GM/D5W 50 ML IV BAG (J0690) As Ordered ONE (13:44)
[2016-10-13] MEDS ORDERED: BACITRACIN PWD 50,000 UNITS VIAL IR ONE (14:23)
[2016-10-13] MEDS ORDERED: LIDOCAINE 1% SDV INJ 30 ML VIAL XX ONE (14:23)
[2016-10-13] MEDS ORDERED: PROPOFOL 200 MG/20 ML VIAL As Ordered ONE ×3 (14:42→16:23)
[2016-10-13] MEDS ORDERED: fentaNYL 100 MCG/2 ML INJECTION (J3010) As Ordered ONE (14:42)
[2016-10-13] MEDS ORDERED: LIDOCAINE 2% INJ 100 MG/5 ML SDV (FOR ANES.) As Ordered ONE (14:42)
[2016-10-13] MEDS ORDERED: MIDAZOLAM INJ 2 MG/2 ML VIAL (J2250) As Ordered ONE (14:42)
[2016-10-13] MEDS ORDERED: ePHEDrine SULFATE 25 MG/5 ML(5MG/ML) SYRINGE As Ordered ONE (14:43)
[2016-10-13] MEDS ORDERED: PHENYLephrine HCL 500 MCG/5 ML (100MCG/ML) SYRINGE (J2370) As Ordered ONE (14:43)
[2016-10-13] MEDS ORDERED: PHENYLEPHRINE INJ 10MG/ML VIAL (J2370) As Ordered ONE (15:01)
[2016-10-13] MEDS ORDERED: fentaNYL 100 MCG/2 ML INJECTION (J3010) IV PRN (17:30)
[2016-10-13] MEDS ORDERED: LR 1,000 ML IV SCH (17:30)
[2016-10-13] MEDS ORDERED: ONDANSETRON 4MG/2ML VIAL (J2405) IV PRN (17:30)
--- NOTE | 2016-10-13 18:32 | REP ---
C-ARM VIEWS DURING PACE MAKER INSERTION: Three C-ARM views are performed during pace maker insertion. Two pace maker leads are seen, one in the region of the right atrium and one in the region of the right ventricle. 12 minutes and 45 seconds of fluoroscopic time utilized for the procedure. Signed by Julio Cesar Verde MD 10/13/2016 06:34 P
[2016-10-13] MEDS ORDERED: SLF 3 ML SYR IV PRN (19:00)
--- NOTE | 2016-10-13 19:02 | RO ---
DATE OF PROCEDURE: 10/13/2016 PREOPERATIVE DIAGNOSES: 1. Intermittent high-grade AV block with near syncope/syncope. 2. Left bundle branch block. 3. Recurrent accelerated idioventricular rhythm. 4. Nonischemic cardiomyopathy. 5. Paroxysmal accelerated idioventricular rhythm. POSTOPERATIVE DIAGNOSES: 1. Intermittent high-grade AV block with near syncope/syncope. 2. Left bundle branch block. 3. Recurrent accelerated idioventricular rhythm. 4. Nonischemic cardiomyopathy. 5. Paroxysmal accelerated idioventricular rhythm. PROCEDURE: Implantation of permanent dual-chamber pacemaker. SURGEON/IMPLANTING CHRONIC CONDITION NURSE: Dr. Raghu Mckeon ANESTHESIOLOGIST: Dr. Tootie Fish REFERRING PHYSICIAN: Dr. Johnson TYPE OF ANESTHESIA: Monitored local anesthesia. CLINICAL SUMMARY: This 76-year-old retired resident of [place], [place] was evaluated by Dr. Johnson's cardiology service because of recurrent near syncope and was found to have an abnormal EKG showing left bundle branch block. Noninvasive cardiac testing included an echocardiogram which showed a moderately depressed global systolic function with septal wall motion abnormality with his left bundle branch block. A pharmacological stress heart scan showed a fixed apical and inferoapical perfusion abnormality with depressed ejection fraction, possibly related to his left bundle branch block as well. Left ventricle ejection fraction was 37%. Initially scheduled for cardiac catheterization September 29, 2016 but this was cancelled by the patient and his family. 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 He was also having nonsustained runs of accelerated idioventricular rhythm that were asymptomatic. My cardiology service was contacted regarding his bradyarrhythmia for permanent pacemaker implant. DESCRIPTION OF PROCEDURE: With the patient in the fasting state having signed informed consent and having received Ancef 2 grams IV premedication, he was taken to the operating theater. Numerous skin electrodes were applied to facilitate continuous electrocardiographic monitoring. The left subclavian region was prepped and draped in usual fashion and the left subclavian vein was catheterized using the micropuncture technique. His left subclavian vein turned out to be extremely tortuous but I was still able to advance a guidewire down to the right atrium and then the inferior vena cava. Unfortunately, we were unable to advance any dilators in light of this extreme tortuosity with three separate bends of 90 degrees. A second guidewire was placed and interestingly, instead of going down the superior vena cava. Went up the right brachiocephalic vein demonstrating a fairly straight course on the right side. Our attempts to insert his pacemaker from the left side were abandoned. Subcutaneous tissues were approximated using a running chromic suture and the skin was closed using yani. The right subclavian region was then prepped and draped in usual fashion and the right subclavian vein was catheterized using the micropuncture technique. On this occasion, our introducing guidewire had no difficulties being advanced to the inferior vena cava on that side. A 5 cm linear incision was made several centimeters below and parallel to the left clavicle. Dissection was carried down to the level of pectoralis fascia and a pocket was fashioned below the level of the incision line. Two bipolar screw-in active fixation steroid-eluting MRI compatable pacing leads were then positioned to the right ventricle and right atrium respectively. The site in the right ventricle was the distal portion of the interventricular septum. Unfortunately, to obtained an adequate stimulation threshold in the right atrium 6 separate sites were tested prior to finding a satisfactory position. This was in the midportion of the anterior right atrium. The ventricular lead ([employer], model number [id number], serial number [id number] - MRI compatable) measurements were: Stimulation threshold 0.4 V/ 0.4 ms/impedance 683 ohms. The R wave amplitude measured 7.0 mV. The atrial lead ([employer], model number [id number], serial number [id number] - MRI compatable) measurements were: Stimulation threshold 1.2 V/0.4 ms/impedance 794 ohms. The P wave measured 3.3 mV. These leads were secured in position with sleeves sutured at their insertion site. There were then connected to a MRI compatible dual-chamber pulse generator ([employer], model number [id number], serial number [id number]) and appropriate DDD pacing was documented. The new pulse generator was placed in the pocket and secured in position with a suture through the right hand corner of the epoxy header. The subcutaneous tissues were approximated using a running chromic suture and the skin was closed using yani. Dry dressing was applied. The patient was returned to the recovery room in good condition. Estimated blood loss: Less than 50 mL. The only complication here was due to the extreme tortuosity of his left subclavian vein. As mentioned above, he has three separate bends which could not accept our introducer dilators for his pacing leads from that side requiring we approach from the right side. Efforts from the left side extended our procedure by a good 45 minutes. In the recovery room, the patient was well with a portable upright chest x-ray confirming good lead position with no pneumothorax. His electrocardiogram showed intermittent atrial pacing and sensing with consistent ventricular pacing. He had occasional isolated PACs but no accelerated idioventricular rhythm at this time. The patient was returned to the telemetry unit and will resume his low-dose carvedilol along with amiodarone loading (initially 200 mg by mouth four times a day). His other medications, including lisinopril, Lasix and atorvastatin were resumed at this time. His Brilinta and low-dose aspirin will be resumed tomorrow. He will receive an additional three doses of Ancef 1 gram IV every 8 hours along with followup PA and left lateral chest x-ray tomorrow. From our standpoint, he should be able to be transferred for his tentative planned cardiac catheterization or discharge home within a matter of several days. This decision will be deferred to Dr. Johnson, his primary spouter. We will plan on reassessing his incision and removing the yani in approximately 7-10 days time. cc: MD HOLLIE Aguillon
[2016-10-13] MEDS: DIVALPROEX 250MG *ER* TAB PO SCH (21:34)
[2016-10-13] MEDS: LORazepam 0.5 MG TAB PO SCH (21:34)
[2016-10-13] MEDS: CARVedilol 3.125 MG TAB PO SCH (21:35)
[2016-10-13] MEDS: AMIODARONE 200 MG TAB (PACERONE) PO SCH (21:35)
[2016-10-13] MEDS: ceFAZolin SOD 1 GM in D5W MINI-BAG PLUS 50 ML IV SCH (21:35)
[2016-10-13] MEDS: SLF 3 ML SYR IV SCH (21:36)
[2016-10-14] VITALS (7 sets, daily range): BP systolic 102–140; BP diastolic 55–67
[2016-10-14] MEDS: SLF 3 ML SYR IV SCH ×3 (05:16→20:55)
[2016-10-14] MEDS: ceFAZolin SOD 1 GM in D5W MINI-BAG PLUS 50 ML IV SCH ×2 (05:16→14:15)
[2016-10-14] MEDS: HumaLOG INSULIN (NovoLOG) PER UNIT SC SCH ×4 (07:30→20:54)
[2016-10-14 07:55] LABS: BASO % 0.6 % (0.0-1.0); EOS # 0.3 K/mm3 (0.0-0.50); EOS % 3.3 % (0.0-3.0); LARGE UNSTAINED CELL # 0.1 K/mm3 (0.0-0.4); LARGE UNSTAINED CELL % 1.3 % (0.0-4.0); LYMPH % 10.8 % (24.0-44.0); MEAN CORPUSCULAR HEMOGLOBIN 31.8 pg (27.0-33.0); MEAN CORPUSCULAR HGB CONC 34.9 g/dl (32.0-36.5); MEAN CORPUSCULAR VOLUME 91.1 fl (80.0-96.0); MONO # 0.7 K/mm3 (0.0-0.8); NEUTROPHILS # 6.6 K/mm3 (1.8-7.7); PLATELET COUNT, AUTOMATED 175 k/mm3 (150-450); RED CELL DISTRIBUTION WIDTH 12.5 % (11.5-14.5); WHITE BLOOD COUNT 8.7 K/mm3 (4.0-10.0)
--- NOTE | 2016-10-14 08:01 | ECGEPIP ---
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
[2016-10-14] MEDS: risperiDONE 2 MG TAB PO SCH (08:09)
[2016-10-14] MEDS: CARVedilol 3.125 MG TAB PO SCH ×2 (08:09→20:54)
[2016-10-14] MEDS: AMIODARONE 200 MG TAB (PACERONE) PO SCH ×4 (08:09→20:54)
[2016-10-14] MEDS: FUROSEMIDE 20 MG TAB PO SCH (08:10)
[2016-10-14] MEDS: ATORVASTATIN 20 MG TAB PO SCH (08:10)
[2016-10-14] MEDS: NICOTINE 14 MG/24 HR TRANSDERMAL TD SCH (08:10)
[2016-10-14] MEDS: LISINOPRIL 5 MG TAB PO SCH (08:10)
[2016-10-14] MEDS: ISOSORBIDE MON. (IMDUR) 30 MG XR TAB PO SCH (08:10)
[2016-10-14 08:18] LABS: ALBUMIN 3.3 GM/DL (3.2-5.2); ALBUMIN/GLOBULIN RATIO 1.18 (1.00-1.93); ALKALINE PHOSPHATASE 78 U/L (45-117); ALT/SGPT 39 U/L (12-78); ANION GAP 8 MEQ/L (8-16); AST/SGOT 27 U/L (15-37); BILIRUBIN,TOTAL 0.8 MG/DL (0.2-1.0); BLOOD UREA NITROGEN 12 MG/DL (7-18); CALCIUM LEVEL 8.8 MG/DL (8.8-10.2); CARBON DIOXIDE LEVEL 29 MEQ/L (21-32); CHLORIDE LEVEL 105 MEQ/L (98-107); CREATININE FOR GFR 0.55 MG/DL (0.70-1.30); GLOMERULAR FILTRATION RATE > 60.0 (>42); GLUCOSE, FASTING 110 MG/DL (83-110); MAGNESIUM LEVEL 2.1 MG/DL (1.8-2.4); POTASSIUM SERUM 4.2 MEQ/L (3.5-5.1); SODIUM LEVEL 142 MEQ/L (136-145); TOTAL PROTEIN 6.1 GM/DL (6.4-8.2)
--- NOTE | 2016-10-14 11:20 | REP ---
Clinical: Postoperative evaluation. Technique: PA and lateral. Comparison: 10/13/2016. Findings: The patient is status post pacemaker. Mediastinum and cardiac silhouette are stable. Lung [place] demonstrate chronic changes without acute consolidation, effusion, or pneumothorax. Skeletal structures intact. Impression: Stable chest x-ray. No acute cardiopulmonary process. No pneumothorax. Signed by Kranthi Martins MD 10/14/2016 11:12 A
--- NOTE | 2016-10-14 13:33 | IPN ---
CARDIOLOGY PROGRESS NOTE COVERING FOR DR. ROSAS DATE OF SERVICE: 10/14/2016 SUBJECTIVE: The patient denies having much incisional discomfort following his pacemaker implant yesterday. Has been up briefly in his room. Complains of chronic weakness but has no shortness of breath or faintness. Has not been aware of any palpitations. OBJECTIVE: Pleasantly demented elderly male of medium body build, laying comfortably flat. No pallor cyanosis. Vital signs: 72 beats per minute and regular with frequent irregularities. Blood pressure 140/70, respiratory rate 18, with oxygen (O2) saturation 97% on room air, afebrile, weight 170 pounds and stable. Healing left and right subclavian incisions without erythema, swelling, or discharge. Fair air entry over both lung [place] with a few scattered bibasilar inspiratory rales. Slight prolongation of expiration but no audible wheeze. Abdomen was soft. No current lower leg swelling. 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 On his amiodarone loading therapy, has still frequent isolated unifocal PVCs, rare couplet, and very rare ventricular triplet. Considerably less ventricular activity than prior to his pacer implant and initiation of amiodarone. Has been free of further more sustained bouts of accelerated idioventricular rhythm. BLOOD WORK: Today's hemoglobin was stable at 13.2, white blood cell count remains normal, as does platelet count. Chemistry confirms electrolyte balance with normal renal function, BUN 12, creatinine 0.6, normal fasting glucose of 110. Albumin 3.3. PA AND LEFT LATERAL CHEST X-RAY: Taken in the x-ray department was reviewed independently and shows a stable lead position with no pneumothorax. ELECTROCARDIOGRAM (EKG): Tracing as described above. Underlying sinus rhythm with atrial sensing and tracking with ventricular pacing. Frequent isolated unifocal PVCs, a paced QRS complex is with a leftward axis and left bundle branch block configuration consistent with right ventricular apical stimulation. No change from his tracing yesterday evening. IMPRESSION/PLAN: 1. Intermittent high-grade AV block/dual-chamber pacemaker in situ: His device appears to be functioning appropriately. His incisions are healing well. Complete pacemaker interrogation shows excellent intracardiac electrograms with pacing thresholds of 0.5 volts and 0.4 ms in each chamber. No program changes were deemed necessary. A low rate set at 60 with max tracking rate 120 beats per minute, paced AV delay is 200 ms, sensed AV delay 150 ms. Estimated battery longevity more than 9 years. Our plan is to see him in our office in approximately 7-10 days' time for wound check and staple removal. Dr. Rosas will be still his primary sustainability manager and will be following his pacemaker following our wound check. 2. Ventricular tachycardia/accelerated idioventricular rhythm: On his current amiodarone loading, has considerably less runs of slow ventricular tachycardia but still has frequent isolated PVCs. These may well be having a negative impact on his left ventricular function. Remains on amiodarone loading. We would suggest keeping his amiodarone at 200 mg four times a day for at least the next 72 hours prior to decreasing the dose to 200 mg twice a day. His low-dose carvedilol has been resumed. 3. Heart failure (systolic and diastolic/chronic): At this point in time, is free of any symptom or sign of congestion. Continues now on his carvedilol, low-dose lisinopril, and Lasix therapies. Chemistry confirms electrolyte balance with normal renal function. 4. Abnormal electrocardiogram: Has multiple coronary risk factors but no apparent effort-related chest discomfort. Our recent pharmacological stress heart scan showed a fixed perfusion defect (related to left bundle branch block, question of) and depressed global systolic function. The plan was to proceed with cardiac catheterization. This had been deferred in light of his bradyarrhythmia. At this point, he is not known to have coronary artery disease, so we have yet to resume his Brilinta. He continues on low-dose aspirin. Further arrangements regarding possible invasive intervention will be left to Dr. Rosas. He can certainly increase his ambulation while he is in hospital on amiodarone loading. We will continue to monitor his care until Dr. Rosas's return.
--- NOTE | 2016-10-14 14:16 | IPNPDOC ---
Text Note Date of Service The patient was seen on 10/14/16. NOTE Subjective: Patient is a 76 year old male with a PMHx of DM2, CAD, Systolic CHF ( EF: 35-40%), DLP, tobacco dependence, Bipolar disorder who presented to the ER with 2 episodes of syncope. He was admitted to telemetry and he was found to have sinus bradycardia and first degree AV block. Cardiology has been consulted. Patient has been seen and examined at the bedside. He reports that he is feeling fine, and that he has not had any problems since the PM was inserted. Objective: Vitals (See below) General: Lying in bed, no acute distress, comfortable, AAOx3 HEENT: NC, AT CVS: RRR, +S1S2 Lungs: Fair air entry b/l, -w/r/r Abdomen: Soft, ND, NT, +BSx4 Extremities: +PPx4, trace pitting edema, -calf tenderness Assessment and plan: 1. Syncope - likely 2/2 cardiogenic etiology - 2/2 bradycardia and heart block ( 1st and 3rd degree heart block), episodes of wide complex tachycardia - no further syncopal events, no chest pain, shortness of breath or palpitations - physical non-revealing - ECHO 10/12: EF of 45-50%, Grade 1 diastolic dysfunction, - Troponin negative and electrolytes optimized - will c/w telemetry monitoring - s/p Pacemaker placement with Dr. Mckeon - Rate and rhythm control with Carvedilol and Amiodarone have been started by Dr. Mckeon 2. Bipolar disorder, s/p episodes of mar - patient has been manic - Psychiatry has been consulted and his dose of medications have been adjusted - Discussed with Dr. Adkins - patient does appear to show signs of improvement - c/w Depakote, Risperdal and Ativan 3. Normocytic anemia - Hg stable - will continue to follow 4. HTN - c/w Lisinopril and furosemide 5. Episodes of bigeminy and trigeminy - electrotype abnormalities have been corrected 6. Compensated, Systolic and Diastolic CHF (EF: 35-40%) - c/w Lisinopril, Furosemide and Atorvastatin - c/w strict ins/outs, daily weights, head of bed elevation 7. DM2 - c/w ISS 8. CAD - c/w ticagrelor 9. Systolic CHF (EF: 45-50%) - c/w furosemide, lisinopril - Carvedilol has been restarted 10. DLP - c/w atorvastatin 11. Tobacco dependence - c/w nicotine patch 12. DVT prophylaxis - c/w Lovenox Disposition - Awaiting custodial placement; patient use to live with his sisters who are unable to care for him at this time VS,Fishbone, I+O VS, Fishbone, I+O Laboratory Tests 10/14/16 07:45 Calcium Level 8.8, Aspartate Amino Transf (AST/SGOT) 27, Alanine Aminotransferase (ALT/SGPT) 39, Alkaline Phosphatase 78, Total Bilirubin 0.8, Total Protein 6.1 L, Albumin 3.3, Red Blood Count 4.16 L, Mean Corpuscular Volume 91.1, Mean Corpuscular Hemoglobin 31.8, Mean Corpuscular Hemoglobin Concent 34.9, Red Cell Distribution Width 12.5, Neutrophils (%) (Auto) 76.0 H, Lymphocytes (%) (Auto) 10.8 L, Monocytes (%) (Auto) 8.0 H, Eosinophils (%) (Auto ) 3.3 H, Basophils (%) (Auto) 0.6, Neutrophils # (Auto) 6.6, Lymphocytes # (Auto ) 1.0 L, Monocytes # (Auto) 0.7, Eosinophils # (Auto) 0.3, Basophils # (Auto) 0.0 Vital Signs Date Time Temp Pulse Resp B/P Pulse Ox O2 Delivery O2 Flow Rate FiO2 10/14/16 12:00 96.8 72 18 108/61 100 Room Air 10/13/16 17:00 2 I&O- Last 24 Hours up to 6 AM 10/14/16 06:00 Intake Total 540 ml Output Total 650 ml Balance -110 ml ANA TONY MD Oct 14, 2016 14:16
[2016-10-14] MEDS: ACETAMINOPHEN TAB 650MG DOSE (2X325MG) PO PRN (17:06)
--- NOTE | 2016-10-14 17:27 | ECGEPIP ---
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 No significant change from 10/13/16 Electronically Signed On 10-14-2016 17:26:59 EST by Raghu Mckeon
[2016-10-14] MEDS: LORazepam 0.5 MG TAB PO SCH (20:54)
[2016-10-14] MEDS: DIVALPROEX 250MG *ER* TAB PO SCH (20:54)
[2016-10-15] MEDS: SLF 3 ML SYR IV SCH ×3 (03:31→21:41)
[2016-10-15 04:42] VITALS: BP 90/53
[2016-10-15 05:32] LABS: BASO # 0.1 K/mm3 (0.0-0.2); BASO % 0.8 % (0.0-1.0); EOS # 0.2 K/mm3 (0.0-0.50); EOS % 2.9 % (0.0-3.0); LARGE UNSTAINED CELL # 0.1 K/mm3 (0.0-0.4); LARGE UNSTAINED CELL % 1.9 % (0.0-4.0); LYMPH # 1.7 K/mm3 (1.5-4.5); LYMPH % 20.3 % (24.0-44.0); MEAN CORPUSCULAR HEMOGLOBIN 31.7 pg (27.0-33.0); MEAN CORPUSCULAR HGB CONC 34.3 g/dl (32.0-36.5); MEAN CORPUSCULAR VOLUME 92.2 fl (80.0-96.0); MONO # 0.6 K/mm3 (0.0-0.8); MONO % 8.3 % (0.0-5.0); NEUTROPHILS % 65.8 % (36.0-66.0); PLATELET COUNT, AUTOMATED 167 k/mm3 (150-450); RED CELL DISTRIBUTION WIDTH 12.6 % (11.5-14.5); WHITE BLOOD COUNT 7.6 K/mm3 (4.0-10.0)
[2016-10-15 05:56] LABS: ALBUMIN 3.3 GM/DL (3.2-5.2); ALBUMIN/GLOBULIN RATIO 0.87 (1.00-1.93); ALKALINE PHOSPHATASE 74 U/L (45-117); ALT/SGPT 35 U/L (12-78); ANION GAP 9 MEQ/L (8-16); AST/SGOT 25 U/L (15-37); BILIRUBIN,TOTAL 0.6 MG/DL (0.2-1.0); BLOOD UREA NITROGEN 19 MG/DL (7-18); CALCIUM LEVEL 9.4 MG/DL (8.8-10.2); CARBON DIOXIDE LEVEL 29 MEQ/L (21-32); CHLORIDE LEVEL 101 MEQ/L (98-107); CREATININE FOR GFR 0.89 MG/DL (0.70-1.30); GLUCOSE, FASTING 126 MG/DL (83-110); MAGNESIUM LEVEL 2.2 MG/DL (1.8-2.4); POTASSIUM SERUM 4.1 MEQ/L (3.5-5.1); SODIUM LEVEL 139 MEQ/L (136-145); TOTAL PROTEIN 7.1 GM/DL (6.4-8.2)
[2016-10-15 06:06] LABS: GLOMERULAR FILTRATION RATE > 60.0 (>42)
[2016-10-15] MEDS: HumaLOG INSULIN (NovoLOG) PER UNIT SC SCH ×4 (07:30→20:52)
[2016-10-15 08:00] VITALS: BP 96/54
[2016-10-15] MEDS: ATORVASTATIN 20 MG TAB PO SCH (08:41)
[2016-10-15] MEDS: FUROSEMIDE 20 MG TAB PO SCH (08:41)
[2016-10-15] MEDS: risperiDONE 2 MG TAB PO SCH (08:42)
[2016-10-15] MEDS: AMIODARONE 200 MG TAB (PACERONE) PO SCH ×4 (08:42→21:41)
[2016-10-15] MEDS: NICOTINE 14 MG/24 HR TRANSDERMAL TD SCH (08:42)
[2016-10-15] MEDS: LISINOPRIL 5 MG TAB PO SCH (08:42)
[2016-10-15] MEDS: ISOSORBIDE MON. (IMDUR) 30 MG XR TAB PO SCH (08:42)
[2016-10-15] MEDS: CARVedilol 3.125 MG TAB PO SCH ×2 (08:43→21:41)
[2016-10-15 12:00] VITALS: BP 120/80
--- NOTE | 2016-10-15 13:23 | IPNPDOC ---
Text Note Date of Service The patient was seen on 10/15/16. NOTE Subjective: Patient is a 76 year old male with a PMHx of DM2, CAD, Systolic CHF ( EF: 35-40%), DLP, tobacco dependence, Bipolar disorder who presented to the ER with 2 episodes of syncope. He was admitted to telemetry and he was found to have sinus bradycardia and first degree AV block. Cardiology has been consulted. Patient has been seen and examined at the bedside. He reports that he is feeling fine, and that he has not had any problems since the PM was inserted. Objective: Vitals (See below) General: Lying in bed, no acute distress, comfortable, AAOx3 HEENT: NC, AT CVS: RRR, +S1S2 Lungs: Fair air entry b/l, -w/r/r Abdomen: Soft, ND, NT, +BSx4 Extremities: +PPx4, trace pitting edema, -calf tenderness Assessment and plan: 1. Syncope - likely 2/2 cardiogenic etiology - 2/2 bradycardia and heart block ( 1st and 3rd degree heart block), episodes of wide complex tachycardia - no further syncopal events, no chest pain, shortness of breath or palpitations - physical non-revealing - ECHO 10/12: EF of 45-50%, Grade 1 diastolic dysfunction, - Troponin negative and electrolytes optimized - will c/w telemetry monitoring - c/w Carvedilol and Amiodarone - s/p Pacemaker placement with Dr. Mckeon - will follow up as an outpatient for wound check, - Will follow with Dr. Johnson as an outpatient 2. Bipolar disorder, s/p episodes of mar - patient has been manic - Psychiatry has been consulted and his dose of medications have been adjusted - Discussed with Dr. Adkins - patient does appear to show signs of improvement - Cleared from a psychiatric standpoint now that he is on appropriate medications - c/w Depakote, Risperdal and Ativan 3. Normocytic anemia - Hg stable - will continue to follow 4. HTN - Blood pressure was on lower limits of normal this morning - Adjusted dose of lisinopril - c/w Lisinopril and furosemide (with holding parameters) 5. Episodes of bigeminy and trigeminy - electrotype abnormalities have been corrected 6. Compensated, Systolic and Diastolic CHF (EF: 35-40%) - c/w Lisinopril, Furosemide and Atorvastatin - c/w strict ins/outs, daily weights, head of bed elevation 7. DM2 - c/w ISS 8. CAD - c/w ticagrelor 9. Systolic CHF (EF: 45-50%) - c/w furosemide, lisinopril - Carvedilol has been restarted 10. DLP - c/w atorvastatin 11. Tobacco dependence - c/w nicotine patch 12. DVT prophylaxis - c/w Lovenox Disposition - Awaiting nursing home placement; patient use to live with his sisters who are unable to care for him at this time VS,[place], I+O VS, Fishbone, I+O Laboratory Tests 10/15/16 04:29 Calcium Level 9.4, Aspartate Amino Transf (AST/SGOT) 25, Alanine Aminotransferase (ALT/SGPT) 35, Alkaline Phosphatase 74, Total Bilirubin 0.6, Total Protein 7.1, Albumin 3.3, Red Blood Count 4.06 L, Mean Corpuscular Volume 92.2, Mean Corpuscular Hemoglobin 31.7, Mean Corpuscular Hemoglobin Concent 34.3 , Red Cell Distribution Width 12.6, Neutrophils (%) (Auto) 65.8, Lymphocytes (% ) (Auto) 20.3 L, Monocytes (%) (Auto) 8.3 H, Eosinophils (%) (Auto) 2.9, Basophils (%) (Auto) 0.8, Neutrophils # (Auto) 5.0, Lymphocytes # (Auto) 1.7, Monocytes # (Auto) 0.6, Eosinophils # (Auto) 0.2, Basophils # (Auto) 0.1 Vital Signs Date Time Temp Pulse Resp B/P Pulse Ox O2 Delivery O2 Flow Rate FiO2 10/15/16 12:00 96.5 80 18 120/80 97 Room Air 10/13/16 17:00 2 I&O- Last 24 Hours up to 6 AM 10/15/16 06:00 Intake Total 1650 ml Output Total 0 ml Balance 1650 ml ANA TONY MD Oct 15, 2016 13:23
--- NOTE | 2016-10-15 13:45 | IPN ---
DATE: 10/15/2016 CARDIOLOGY PROGRESS NOTE COVERING FOR: Dr. Johnson SUBJECTIVE: He has been up in his room without chest discomfort, shortness of breath or dizziness. Appears to be tolerating his medications without adverse effect. OBJECTIVE: Pleasantly demented, elderly male of medium body build in no acute stress. Heart rate of 80 beats per minute (BPM) and regular with frequent irregularities. Blood pressure 102/60 standing. Respiratory rate 18 per minute. O2 saturation 97% on room air. Afebrile. Current weight is slightly less than yesterday despite a recorded positive fluid balance?? Accuracy. Good air entry over both lung [place] with no current inspiratory rales. Slight prolongation of expiration, but no audible wheeze. His pacemaker incision sites are healing well. No current pitting edema lower extremities. 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 Despite his amiodarone started 2 days ago, still having intermittent runs of accelerated idioventricular rhythm with no more than 3 or 4 beats at any one time. LABORATORY DATA: Hemoglobin stable at 12.9. Normal white blood cell count and platelet count. His electrolytes are normal with a BUN 19 and creatinine 0.9, essentially stable. Fasting glucose this morning 126. Magnesium was 2.2. Albumin 3.3. IMPRESSION/PLAN: 1. Ventricular tachycardia/accelerated idioventricular rhythm: Continues with amiodarone loading and has had less ventricular tachycardia, but continues to have very brief nonsustained bouts and fully frequent isolated unifocal PVCs. At this point, no change has been made to his current dosage of 2 mg four times a day for at least the next 2 days. Remains on the same low-dose carvedilol as well. 2. Heart failure (systolic and diastolic/chronic): At this point has no symptoms or signs of congestion on his current combination carvedilol, lisinopril, and Lasix. Chemistry confirms electrolyte balance and normal renal function. 3. Intermittent high-grade AV block/dual-chamber pacemaker in situ: Telemetry confirms appropriate device function. His incisions are healing well. 4. Abnormal electrocardiogram (EKG): Despite his multiple coronary risk factors has remained free of symptomatic myocardial ischemia on his current level of activity. As previously mentioned whether he proceeds with cardiac catheterization has Dr. Johnson had initially planned or continues simply with medical therapy will be left to Dr. Johnson. His recent pharmacological stress heart scan showed no reversible perfusion defect. We will continue to monitor him with you until Dr. Johnson's returns tomorrow.
[2016-10-15 16:00] VITALS: BP 103/57
[2016-10-15 20:42] VITALS: BP 123/60
[2016-10-15] MEDS: LORazepam 0.5 MG TAB PO SCH (21:40)
[2016-10-15] MEDS: DIVALPROEX 250MG *ER* TAB PO SCH (21:41)
[2016-10-16 02:12] VITALS: BP 108/59
[2016-10-16 04:46] VITALS: BP 127/63
[2016-10-16 05:23] LABS: BASO # 0.1 K/mm3 (0.0-0.2); EOS # 0.4 K/mm3 (0.0-0.50); EOS % 4.7 % (0.0-3.0); LARGE UNSTAINED CELL # 0.1 K/mm3 (0.0-0.4); LARGE UNSTAINED CELL % 1.8 % (0.0-4.0); LYMPH % 25.2 % (24.0-44.0); MEAN CORPUSCULAR HEMOGLOBIN 31.2 pg (27.0-33.0); MEAN CORPUSCULAR HGB CONC 34.1 g/dl (32.0-36.5); MEAN CORPUSCULAR VOLUME 91.4 fl (80.0-96.0); MONO # 0.6 K/mm3 (0.0-0.8); MONO % 7.7 % (0.0-5.0); NEUTROPHILS # 4.4 K/mm3 (1.8-7.7); NEUTROPHILS % 59.5 % (36.0-66.0); PLATELET COUNT, AUTOMATED 157 k/mm3 (150-450); RED CELL DISTRIBUTION WIDTH 12.6 % (11.5-14.5); WHITE BLOOD COUNT 7.4 K/mm3 (4.0-10.0)
[2016-10-16 05:43] LABS: ALBUMIN 3.4 GM/DL (3.2-5.2); ALBUMIN/GLOBULIN RATIO 0.94 (1.00-1.93); ALKALINE PHOSPHATASE 75 U/L (45-117); ALT/SGPT 33 U/L (12-78); ANION GAP 8 MEQ/L (8-16); AST/SGOT 21 U/L (15-37); BILIRUBIN,TOTAL 0.7 MG/DL (0.2-1.0); BLOOD UREA NITROGEN 25 MG/DL (7-18); CALCIUM LEVEL 8.9 MG/DL (8.8-10.2); CARBON DIOXIDE LEVEL 31 MEQ/L (21-32); CHLORIDE LEVEL 102 MEQ/L (98-107); CREATININE FOR GFR 0.89 MG/DL (0.70-1.30); GLOMERULAR FILTRATION RATE > 60.0 (>42); GLUCOSE, FASTING 96 MG/DL (83-110); MAGNESIUM LEVEL 2.2 MG/DL (1.8-2.4); POTASSIUM SERUM 4.5 MEQ/L (3.5-5.1); SODIUM LEVEL 141 MEQ/L (136-145)
[2016-10-16] MEDS: SLF 3 ML SYR IV SCH ×3 (05:51→21:48)
[2016-10-16 07:30] VITALS: BP 129/71
[2016-10-16] MEDS: HumaLOG INSULIN (NovoLOG) PER UNIT SC SCH ×4 (07:51→20:48)
[2016-10-16] MEDS: ATORVASTATIN 20 MG TAB PO SCH (09:31)
[2016-10-16] MEDS: ISOSORBIDE MON. (IMDUR) 30 MG XR TAB PO SCH (09:31)
[2016-10-16] MEDS: CARVedilol 3.125 MG TAB PO SCH ×2 (09:31→21:51)
[2016-10-16] MEDS: LISINOPRIL *2.5 MG* TAB PO SCH (09:32)
[2016-10-16] MEDS: AMIODARONE 200 MG TAB (PACERONE) PO SCH ×4 (09:32→21:49)
[2016-10-16] MEDS: risperiDONE 2 MG TAB PO SCH (09:32)
[2016-10-16] MEDS: FUROSEMIDE 20 MG TAB PO SCH (09:32)
[2016-10-16] MEDS: NICOTINE 14 MG/24 HR TRANSDERMAL TD SCH (09:33)
--- NOTE | 2016-10-16 13:11 | REP ---
Clinical: Postoperative pacemaker placement. Comparison: 10/05/2016. Findings: Pacemaker overlies the right upper chest wall. Stable cardiomegaly is appreciated. Lung [place] demonstrate chronic changes without consolidation, effusion, or pneumothorax. Impression: Pacemaker in satisfactory position. Cardiomegaly. No pneumothorax. Signed by Kranthi Martins MD 10/16/2016 01:02 P
--- NOTE | 2016-10-16 13:40 | IPNPDOC ---
Text Note Date of Service The patient was seen on 10/16/16. NOTE Subjective: Patient is a 76 year old male with a PMHx of DM2, CAD, Systolic CHF ( EF: 35-40%), DLP, tobacco dependence, Bipolar disorder who presented to the ER with 2 episodes of syncope. He was admitted to telemetry and he was found to have sinus bradycardia and first degree AV block. Cardiology has been consulted. Patient has been seen and examined at the bedside. He does not have any issues, no acute events overnight. Objective: Vitals (See below) General: Lying in bed, no acute distress, comfortable, AAOx3 HEENT: NC, AT CVS: RRR, +S1S2 Lungs: Fair air entry b/l, -w/r/r Abdomen: Soft, ND, NT, +BSx4 Extremities: +PPx4, trace pitting edema, -calf tenderness Assessment and plan: 1. Syncope - likely 2/2 cardiogenic etiology - 2/2 bradycardia and heart block ( 1st and 3rd degree heart block), episodes of wide complex tachycardia - no further syncopal events, no chest pain, shortness of breath or palpitations - physical non-revealing - ECHO 10/12: EF of 45-50%, Grade 1 diastolic dysfunction, - Troponin negative and electrolytes optimized - c/w Carvedilol and Amiodarone - s/p Pacemaker placement with Dr. Mckeon - Will follow up with Dr. Johnson and Dr. Mckeon as an outpatient - Will discontinue telemetry monitoring 2. Bipolar disorder, s/p episodes of mar - Psychiatry has been consulted and his dose of medications have been adjusted - Discussed with Dr. Adkins - patient does appear to show signs of improvement - Cleared from a psychiatric standpoint now that he is on appropriate medications - c/w Depakote, Risperdal and Ativan 3. Normocytic anemia - Hg stable - will continue to follow 4. HTN - Blood pressure was on lower limits on 10/15 AM - Adjusted dose of lisinopril - BP better optimized today - c/w Lisinopril and furosemide (with holding parameters) 5. Episodes of bigeminy and trigeminy - electrotype abnormalities have been corrected 6. Compensated, Systolic and Diastolic CHF (EF: 35-40%) - c/w Lisinopril, Furosemide and Atorvastatin - c/w strict ins/outs, daily weights, head of bed elevation 7. DM2 - c/w ISS 8. CAD - c/w ticagrelor 9. Systolic CHF (EF: 45-50%) - c/w furosemide, lisinopril, carvedilol 10. DLP - c/w atorvastatin 11. Tobacco dependence - c/w nicotine patch 12. DVT prophylaxis - c/w Lovenox Disposition - Awaiting exterminator placement; patient use to live with his sisters who are unable to care for him at this time - Discussed with PFS; will try to establish assisted living as an outpatient [facility] YIP, I+O [facility]by I+O Laboratory Tests 10/16/16 04:38 Calcium Level 8.9, Aspartate Amino Transf (AST/SGOT) 21, Alanine Aminotransferase (ALT/SGPT) 33, Alkaline Phosphatase 75, Total Bilirubin 0.7, Total Protein 7.0, Albumin 3.4, Red Blood Count 4.32, Mean Corpuscular Volume 91.4, Mean Corpuscular Hemoglobin 31.2, Mean Corpuscular Hemoglobin Concent 34.1 , Red Cell Distribution Width 12.6, Neutrophils (%) (Auto) 59.5, Lymphocytes (% ) (Auto) 25.2, Monocytes (%) (Auto) 7.7 H, Eosinophils (%) (Auto) 4.7 H, Basophils (%) (Auto) 1.0, Neutrophils # (Auto) 4.4, Lymphocytes # (Auto) 2.0, Monocytes # (Auto) 0.6, Eosinophils # (Auto) 0.4, Basophils # (Auto) 0.1 Vital Signs Date Time Temp Pulse Resp B/P Pulse Ox O2 Delivery O2 Flow Rate FiO2 10/16/16 09:31 60 129/71 10/16/16 07:30 95.4 20 100 Room Air 10/13/16 17:00 2 I&O- Last 24 Hours up to 6 AM 10/16/16 06:00 Intake Total 1080 ml Output Total 400 ml Balance 680 ml ANA TONY MD Oct 16, 2016 13:40
[2016-10-16 15:25] VITALS: BP 145/63
[2016-10-16] MEDS: DIVALPROEX 250MG *ER* TAB PO SCH (21:48)
[2016-10-16] MEDS: LORazepam 0.5 MG TAB PO SCH (21:49)
[2016-10-17] MEDS: SLF 3 ML SYR IV SCH ×3 (05:39→20:29)
[2016-10-17 06:39] LABS: BASO % 0.8 % (0.0-1.0); EOS # 0.3 K/mm3 (0.0-0.50); EOS % 4.3 % (0.0-3.0); LARGE UNSTAINED CELL # 0.1 K/mm3 (0.0-0.4); LARGE UNSTAINED CELL % 1.9 % (0.0-4.0); LYMPH # 1.4 K/mm3 (1.5-4.5); LYMPH % 21.4 % (24.0-44.0); MEAN CORPUSCULAR HEMOGLOBIN 31.5 pg (27.0-33.0); MEAN CORPUSCULAR HGB CONC 34.7 g/dl (32.0-36.5); MEAN CORPUSCULAR VOLUME 90.6 fl (80.0-96.0); MONO # 0.4 K/mm3 (0.0-0.8); MONO % 6.9 % (0.0-5.0); NEUTROPHILS % 64.7 % (36.0-66.0); PLATELET COUNT, AUTOMATED 159 k/mm3 (150-450); RED CELL DISTRIBUTION WIDTH 12.4 % (11.5-14.5); WHITE BLOOD COUNT 6.2 K/mm3 (4.0-10.0)
[2016-10-17 06:49] LABS: ALBUMIN 3.3 GM/DL (3.2-5.2); ALBUMIN/GLOBULIN RATIO 0.85 (1.00-1.93); ALKALINE PHOSPHATASE 74 U/L (45-117); ALT/SGPT 34 U/L (12-78); ANION GAP 5 MEQ/L (8-16); AST/SGOT 22 U/L (15-37); BILIRUBIN,TOTAL 0.6 MG/DL (0.2-1.0); BLOOD UREA NITROGEN 28 MG/DL (7-18); CALCIUM LEVEL 8.8 MG/DL (8.8-10.2); CARBON DIOXIDE LEVEL 32 MEQ/L (21-32); CHLORIDE LEVEL 101 MEQ/L (98-107); CREATININE FOR GFR 0.86 MG/DL (0.70-1.30); GLOMERULAR FILTRATION RATE > 60.0 (>42); GLUCOSE, FASTING 106 MG/DL (83-110); MAGNESIUM LEVEL 2.2 MG/DL (1.8-2.4); POTASSIUM SERUM 4.4 MEQ/L (3.5-5.1); SODIUM LEVEL 138 MEQ/L (136-145); TOTAL PROTEIN 7.2 GM/DL (6.4-8.2)
[2016-10-17] MEDS: HumaLOG INSULIN (NovoLOG) PER UNIT SC SCH ×4 (07:30→20:29)
[2016-10-17] MEDS: NICOTINE 14 MG/24 HR TRANSDERMAL TD SCH (09:03)
[2016-10-17] MEDS: risperiDONE 2 MG TAB PO SCH (09:04)
[2016-10-17] MEDS: FUROSEMIDE 20 MG TAB PO SCH (09:04)
[2016-10-17] MEDS: ATORVASTATIN 20 MG TAB PO SCH (09:04)
[2016-10-17] MEDS: LISINOPRIL *2.5 MG* TAB PO SCH (09:04)
[2016-10-17] MEDS: AMIODARONE 200 MG TAB (PACERONE) PO SCH ×4 (09:04→20:27)
[2016-10-17] MEDS: CARVedilol 3.125 MG TAB PO SCH ×2 (09:05→20:27)
[2016-10-17] MEDS: ISOSORBIDE MON. (IMDUR) 30 MG XR TAB PO SCH (09:06)
[2016-10-17 14:00] VITALS: BP 128/65
--- NOTE | 2016-10-17 15:27 | IPNPDOC ---
Subjective Date Seen The patient was seen on 10/17/16. Subjective Chief Complaint/HPI The patient is a 76-year-old male admitted with a reason for visit of Bradycardia,Symptomic Bradycardia. General: Denies: Chills, Night Sweats Constitutional: Denies: Chills, Fever Eyes: Denies: Pain, Vision change ENT: Denies: Ear Pain, Head Aches Skin: Denies: Lesions, Rash Pulmonary: Denies: Cough, Dyspnea Cardiovascular: Denies: Chest Pain, Palpitations Gastrointestinal: Denies: Abdominal Pain, Nausea, Vomiting Hematologic: Denies: Bleeding Excessively, Bruising Objective Physical Examination General Exam: Positive: Alert, Cooperative, No Acute Distress ENT Exam: Positive: Atraumatic, Mucous membr. moist/pink Neck Exam: Negative: JVD Chest Exam: Positive: Clear to auscultation, Normal air movement Heart Exam: Positive: Normal S1, Normal S2, Rate Normal Abdomen Exam: Positive: Soft, Negative: Tenderness Extremity Exam: Negative: Swelling, Tenderness Assessment /Plan Plan/VTE VTE Prophylaxis Ordered?: Yes Plan 1. Syncope - likely 2/2 bradycardia and heart block (intermittent 3rd degree heart block) s/p Pacemaker placement with Dr. Mckeon ECHO 10/12: EF of 45-50%, Grade 1 diastolic dysfunction, No episodes of syncope, chest pain, palpitations here c/w Carvedilol and Amiodarone 2. Bipolar disorder Psychiatry consult noted c/w Depakote, Risperdal and Ativan as per their recommendations 3. Normocytic anemia Hg stable will continue to follow 4. HTN Cont on Lisinopril and furosemide 5. Compensated, Systolic and Diastolic CHF (EF: 45-50%) Cont Lisinopril, Furosemide and Atorvastatin 6. DM2 Cont ISS 7. CAD Cont ticagrelor 9. Systolic CHF (EF: 45-50%) Cont furosemide, lisinopril, carvedilol 10. Dyslipidemia Cont atorvastatin 11. Tobacco dependence Cont nicotine patch 12. DVT prophylaxis Cont Lovenox Disposition: Will f/u with CM/PFS regarding plans for discharge VS, I&O, 24H, Fishbone Vital Signs/I&O Vital Signs Date Time Temp Pulse Resp B/P Pulse Ox O2 Delivery O2 Flow Rate FiO2 10/17/16 14:00 96.3 60 20 128/65 97 Room Air 10/13/16 17:00 2 I&O- Last 24 Hours up to 6 AM 10/17/16 06:00 Intake Total 1200 ml Balance 1200 ml Laboratory Data 24H LABS Laboratory Tests 2 10/16/16 17:08: Bedside Glucose (Misc Panel) 98 10/16/16 20:25: Bedside Glucose (Misc Panel) 118H 10/17/16 06:09: Blood Urea Nitrogen 28H, Creatinine 0.86, Sodium Level 138, Potassium Level 4.4 , Chloride Level 101, Carbon Dioxide Level 32, Calcium Level 8.8, Aspartate Amino Transf (AST/SGOT) 22, Alanine Aminotransferase (ALT/SGPT) 34, Alkaline Phosphatase 74, Total Bilirubin 0.6, Total Protein 7.2, Albumin 3.3, Albumin/ Globulin Ratio 0.85L, Anion Gap 5L, White Blood Count 6.2, Red Blood Count 4.26L , Hemoglobin 13.4L, Hematocrit 38.6L, Mean Corpuscular Volume 90.6, Mean Corpuscular Hemoglobin 31.5, Mean Corpuscular Hemoglobin Concent 34.7, Red Cell Distribution Width 12.4, Platelet Count 159, Neutrophils (%) (Auto) 64.7, Lymphocytes (%) (Auto) 21.4L, Monocytes (%) (Auto) 6.9H, Eosinophils (%) (Auto) 4.3H, Basophils (%) (Auto) 0.8, Neutrophils # (Auto) 4.0, Lymphocytes # (Auto) 1.4L, Monocytes # (Auto) 0.4, Eosinophils # (Auto) 0.3, Basophils # (Auto) 0.0, Glomerular Filtration Rate > 60.0, Large Unclassified Cells # 0.1, Large Unclassified Cells % 1.9, Magnesium Level 2.2 10/17/16 12:23: Bedside Glucose (Misc Panel) 94 CBC/BMP Laboratory Tests 10/17/16 06:09 Calcium Level 8.8, Aspartate Amino Transf (AST/SGOT) 22, Alanine Aminotransferase (ALT/SGPT) 34, Alkaline Phosphatase 74, Total Bilirubin 0.6, Total Protein 7.2, Albumin 3.3, Red Blood Count 4.26 L, Mean Corpuscular Volume 90.6, Mean Corpuscular Hemoglobin 31.5, Mean Corpuscular Hemoglobin Concent 34.7 , Red Cell Distribution Width 12.4, Neutrophils (%) (Auto) 64.7, Lymphocytes (% ) (Auto) 21.4 L, Monocytes (%) (Auto) 6.9 H, Eosinophils (%) (Auto) 4.3 H, Basophils (%) (Auto) 0.8, Neutrophils # (Auto) 4.0, Lymphocytes # (Auto) 1.4 L, Monocytes # (Auto) 0.4, Eosinophils # (Auto) 0.3, Basophils # (Auto) 0.0 LEI PADILLA MD Oct 17, 2016 15:27
[2016-10-17] MEDS: DIVALPROEX 250MG *ER* TAB PO SCH (20:26)
[2016-10-17] MEDS: LORazepam 0.5 MG TAB PO SCH (20:27)
[2016-10-17] MEDS: ACETAMINOPHEN TAB 650MG DOSE (2X325MG) PO PRN (20:29)
[2016-10-17 22:00] VITALS: BP 107/58
[2016-10-18] MEDS: SLF 3 ML SYR IV SCH ×3 (05:12→22:00)
[2016-10-18 06:00] VITALS: BP 110/63
[2016-10-18 07:12] LABS: BASO # 0.1 K/mm3 (0.0-0.2); EOS # 0.3 K/mm3 (0.0-0.50); EOS % 4.4 % (0.0-3.0); LARGE UNSTAINED CELL # 0.2 K/mm3 (0.0-0.4); LARGE UNSTAINED CELL % 2.3 % (0.0-4.0); LYMPH # 1.8 K/mm3 (1.5-4.5); MEAN CORPUSCULAR HEMOGLOBIN 31.2 pg (27.0-33.0); MEAN CORPUSCULAR HGB CONC 34.3 g/dl (32.0-36.5); MONO # 0.5 K/mm3 (0.0-0.8); MONO % 8.5 % (0.0-5.0); NEUTROPHILS # 3.6 K/mm3 (1.8-7.7); NEUTROPHILS % 57.6 % (36.0-66.0); PLATELET COUNT, AUTOMATED 157 k/mm3 (150-450); RED CELL DISTRIBUTION WIDTH 12.4 % (11.5-14.5); WHITE BLOOD COUNT 6.2 K/mm3 (4.0-10.0)
[2016-10-18 07:24] LABS: ALBUMIN 3.4 GM/DL (3.2-5.2); ALBUMIN/GLOBULIN RATIO 0.94 (1.00-1.93); ALKALINE PHOSPHATASE 74 U/L (45-117); ALT/SGPT 39 U/L (12-78); ANION GAP 9 MEQ/L (8-16); AST/SGOT 28 U/L (15-37); BILIRUBIN,TOTAL 0.8 MG/DL (0.2-1.0); BLOOD UREA NITROGEN 21 MG/DL (7-18); CALCIUM LEVEL 9.2 MG/DL (8.8-10.2); CARBON DIOXIDE LEVEL 28 MEQ/L (21-32); CHLORIDE LEVEL 103 MEQ/L (98-107); CREATININE FOR GFR 0.71 MG/DL (0.70-1.30); GLOMERULAR FILTRATION RATE > 60.0 (>42); GLUCOSE, FASTING 99 MG/DL (83-110); MAGNESIUM LEVEL 2.3 MG/DL (1.8-2.4); POTASSIUM SERUM 4.1 MEQ/L (3.5-5.1); SODIUM LEVEL 140 MEQ/L (136-145)
[2016-10-18] MEDS: HumaLOG INSULIN (NovoLOG) PER UNIT SC SCH ×4 (07:30→21:00)
[2016-10-18] MEDS: LISINOPRIL *2.5 MG* TAB PO SCH (09:15)
[2016-10-18] MEDS: risperiDONE 2 MG TAB PO SCH (09:15)
[2016-10-18] MEDS: FUROSEMIDE 20 MG TAB PO SCH (09:15)
[2016-10-18] MEDS: CARVedilol 3.125 MG TAB PO SCH ×2 (09:15→21:41)
[2016-10-18] MEDS: ISOSORBIDE MON. (IMDUR) 30 MG XR TAB PO SCH (09:16)
[2016-10-18] MEDS: NICOTINE 14 MG/24 HR TRANSDERMAL TD SCH (09:16)
[2016-10-18] MEDS: AMIODARONE 200 MG TAB (PACERONE) PO SCH ×4 (09:16→21:41)
[2016-10-18] MEDS: ATORVASTATIN 20 MG TAB PO SCH (09:16)
[2016-10-18 14:00] VITALS: BP_SYST 93; BP_SYST 96; BP_DIAS 50; BP_DIAS 63
--- NOTE | 2016-10-18 15:50 | IPNPDOC ---
Subjective Date Seen The patient was seen on 10/18/16. Subjective Chief Complaint/HPI The patient is a 76-year-old male admitted with a reason for visit of Bradycardia,Symptomic Bradycardia. General: Denies: Chills, Night Sweats Constitutional: Denies: Chills, Fever Eyes: Denies: Pain, Vision change ENT: Denies: Ear Pain, Head Aches Skin: Denies: Lesions, Rash Pulmonary: Denies: Cough, Dyspnea Cardiovascular: Denies: Chest Pain, Palpitations Gastrointestinal: Denies: Nausea, Vomiting Genitourinary: Denies: Dysuria, Frequency Hematologic: Denies: Bleeding Excessively, Bruising Objective Physical Examination General Exam: Positive: Alert, Cooperative, No Acute Distress ENT Exam: Positive: Atraumatic, Mucous membr. moist/pink Neck Exam: Negative: JVD Chest Exam: Positive: Clear to auscultation, Normal air movement Heart Exam: Positive: Normal S1, Normal S2, Rate Normal Abdomen Exam: Positive: Soft, Negative: Tenderness Extremity Exam: Negative: Swelling, Tenderness Assessment /Plan Plan/VTE VTE Prophylaxis Ordered?: Yes Plan 1. Syncope - likely 2/2 bradycardia and heart block (intermittent 3rd degree heart block) s/p Pacemaker placement with Dr. Mckeon ECHO 10/12: EF of 45-50%, Grade 1 diastolic dysfunction, No episodes of syncope, chest pain, palpitations here c/w Carvedilol and Amiodarone 2. Bipolar disorder Psychiatry consult noted c/w Depakote, Risperdal and Ativan as per their recommendations 3. Normocytic anemia Hg stable will continue to follow 4. HTN Cont on Lisinopril and furosemide 5. Compensated, Systolic and Diastolic CHF (EF: 45-50%) Cont Lisinopril, Furosemide and Atorvastatin 6. DM2 Cont ISS 7. CAD Cont ticagrelor 9. Systolic CHF (EF: 45-50%) Cont furosemide, lisinopril, carvedilol 10. Dyslipidemia Cont atorvastatin 11. Tobacco dependence Cont nicotine patch 12. DVT prophylaxis Cont Lovenox Disposition: Will continue to f/u with CM/PFS regarding plans for discharge/ placement VS, I&O, 24H, Fishbone Vital Signs/I&O Vital Signs Date Time Temp Pulse Resp B/P Pulse Ox O2 Delivery O2 Flow Rate FiO2 10/18/16 09:15 110/63 10/18/16 09:15 63 10/18/16 06:00 97.9 16 93 Room Air 10/13/16 17:00 2 I&O- Last 24 Hours up to 6 AM 10/18/16 06:00 Intake Total 1440 ml Balance 1440 ml Laboratory Data 24H LABS Laboratory Tests 2 10/17/16 16:27: Bedside Glucose (Misc Panel) 113H 10/17/16 20:12: Bedside Glucose (Misc Panel) 147H 10/18/16 06:23: Blood Urea Nitrogen 21H, Creatinine 0.71, Sodium Level 140, Potassium Level 4.1 , Chloride Level 103, Carbon Dioxide Level 28, Calcium Level 9.2, Aspartate Amino Transf (AST/SGOT) 28, Alanine Aminotransferase (ALT/SGPT) 39, Alkaline Phosphatase 74, Total Bilirubin 0.8, Total Protein 7.0, Albumin 3.4, Albumin/ Globulin Ratio 0.94L, Anion Gap 9, White Blood Count 6.2, Red Blood Count 4.02L , Hemoglobin 12.6L, Hematocrit 36.6L, Mean Corpuscular Volume 91.0, Mean Corpuscular Hemoglobin 31.2, Mean Corpuscular Hemoglobin Concent 34.3, Red Cell Distribution Width 12.4, Platelet Count 157, Neutrophils (%) (Auto) 57.6, Lymphocytes (%) (Auto) 26.0, Monocytes (%) (Auto) 8.5H, Eosinophils (%) (Auto) 4.4H, Basophils (%) (Auto) 1.0, Neutrophils # (Auto) 3.6, Lymphocytes # (Auto) 1.8, Monocytes # (Auto) 0.5, Eosinophils # (Auto) 0.3, Basophils # (Auto) 0.1, Glomerular Filtration Rate > 60.0, Large Unclassified Cells # 0.2, Large Unclassified Cells % 2.3, Magnesium Level 2.3 10/18/16 12:29: Bedside Glucose (Misc Panel) 104 CBC/BMP Laboratory Tests 10/18/16 06:23 Calcium Level 9.2, Aspartate Amino Transf (AST/SGOT) 28, Alanine Aminotransferase (ALT/SGPT) 39, Alkaline Phosphatase 74, Total Bilirubin 0.8, Total Protein 7.0, Albumin 3.4, Red Blood Count 4.02 L, Mean Corpuscular Volume 91.0, Mean Corpuscular Hemoglobin 31.2, Mean Corpuscular Hemoglobin Concent 34.3 , Red Cell Distribution Width 12.4, Neutrophils (%) (Auto) 57.6, Lymphocytes (% ) (Auto) 26.0, Monocytes (%) (Auto) 8.5 H, Eosinophils (%) (Auto) 4.4 H, Basophils (%) (Auto) 1.0, Neutrophils # (Auto) 3.6, Lymphocytes # (Auto) 1.8, Monocytes # (Auto) 0.5, Eosinophils # (Auto) 0.3, Basophils # (Auto) 0.1 LEI PADILLA MD Oct 18, 2016 15:50
[2016-10-18] MEDS: LORazepam 0.5 MG TAB PO SCH (21:42)
[2016-10-18] MEDS: DIVALPROEX 250MG *ER* TAB PO SCH (21:42)
[2016-10-18 22:00] VITALS: BP 122/65
[2016-10-19] MEDS: SLF 3 ML SYR IV SCH ×3 (02:57→20:57)
[2016-10-19 06:00] VITALS: BP 129/71
[2016-10-19 06:48] LABS: BASO % 0.8 % (0.0-1.0); EOS # 0.2 K/mm3 (0.0-0.50); EOS % 2.9 % (0.0-3.0); LARGE UNSTAINED CELL # 0.1 K/mm3 (0.0-0.4); LARGE UNSTAINED CELL % 1.8 % (0.0-4.0); LYMPH # 1.6 K/mm3 (1.5-4.5); LYMPH % 24.4 % (24.0-44.0); MEAN CORPUSCULAR HEMOGLOBIN 32.8 pg (27.0-33.0); MEAN CORPUSCULAR HGB CONC 36.2 g/dl (32.0-36.5); MEAN CORPUSCULAR VOLUME 90.6 fl (80.0-96.0); MONO # 0.4 K/mm3 (0.0-0.8); MONO % 6.8 % (0.0-5.0); NEUTROPHILS # 3.8 K/mm3 (1.8-7.7); NEUTROPHILS % 63.2 % (36.0-66.0); PLATELET COUNT, AUTOMATED 144 k/mm3 (150-450); RED CELL DISTRIBUTION WIDTH 12.3 % (11.5-14.5)
[2016-10-19 07:01] LABS: ALBUMIN 3.2 GM/DL (3.2-5.2); ALBUMIN/GLOBULIN RATIO 0.97 (1.00-1.93); ALKALINE PHOSPHATASE 74 U/L (45-117); ALT/SGPT 39 U/L (12-78); ANION GAP 9 MEQ/L (8-16); AST/SGOT 28 U/L (15-37); BILIRUBIN,TOTAL 0.6 MG/DL (0.2-1.0); BLOOD UREA NITROGEN 24 MG/DL (7-18); CALCIUM LEVEL 9.2 MG/DL (8.8-10.2); CARBON DIOXIDE LEVEL 31 MEQ/L (21-32); CHLORIDE LEVEL 102 MEQ/L (98-107); GLOMERULAR FILTRATION RATE > 60.0 (>42); GLUCOSE, FASTING 97 MG/DL (83-110); MAGNESIUM LEVEL 2.3 MG/DL (1.8-2.4); POTASSIUM SERUM 4.2 MEQ/L (3.5-5.1); SODIUM LEVEL 142 MEQ/L (136-145); TOTAL PROTEIN 6.5 GM/DL (6.4-8.2)
[2016-10-19] MEDS: HumaLOG INSULIN (NovoLOG) PER UNIT SC SCH ×4 (07:30→20:56)
[2016-10-19] MEDS: LISINOPRIL *2.5 MG* TAB PO SCH (08:29)
[2016-10-19] MEDS: risperiDONE 2 MG TAB PO SCH (08:30)
[2016-10-19] MEDS: ATORVASTATIN 20 MG TAB PO SCH (08:30)
[2016-10-19] MEDS: CARVedilol 3.125 MG TAB PO SCH ×2 (08:30→20:54)
[2016-10-19] MEDS: ISOSORBIDE MON. (IMDUR) 30 MG XR TAB PO SCH (08:30)
[2016-10-19] MEDS: AMIODARONE 200 MG TAB (PACERONE) PO SCH ×4 (08:30→20:53)
[2016-10-19] MEDS: NICOTINE 14 MG/24 HR TRANSDERMAL TD SCH (08:31)
[2016-10-19] MEDS: FUROSEMIDE 20 MG TAB PO SCH (08:32)
[2016-10-19 14:00] VITALS: BP 137/65
--- NOTE | 2016-10-19 14:10 | IPNPDOC ---
Subjective Date Seen The patient was seen on 10/19/16. Subjective Chief Complaint/HPI The patient is a 76-year-old male admitted with a reason for visit of Bradycardia,Symptomic Bradycardia. General: Denies: Chills, Night Sweats Constitutional: Denies: Chills, Fever Eyes: Denies: Pain, Vision change ENT: Denies: Ear Pain, Head Aches Skin: Denies: Lesions, Rash Pulmonary: Denies: Cough, Dyspnea Cardiovascular: Denies: Chest Pain, Palpitations Gastrointestinal: Denies: Nausea, Vomiting Genitourinary: Denies: Dysuria, Frequency Hematologic: Denies: Bleeding Excessively, Bruising Objective Physical Examination General Exam: Positive: Alert, Cooperative, No Acute Distress ENT Exam: Positive: Atraumatic, Mucous membr. moist/pink Neck Exam: Negative: JVD Chest Exam: Positive: Clear to auscultation, Normal air movement Heart Exam: Positive: Normal S1, Normal S2, Rate Normal Abdomen Exam: Positive: Soft, Negative: Tenderness Extremity Exam: Negative: Swelling, Tenderness Assessment /Plan Plan/VTE VTE Prophylaxis Ordered?: Yes Plan 1. Syncope - likely 2/2 bradycardia and heart block (intermittent 3rd degree heart block) s/p Pacemaker placement with Dr. Mckeon ECHO 10/12: EF of 45-50%, Grade 1 diastolic dysfunction, No episodes of syncope, chest pain, palpitations here c/w Carvedilol and Amiodarone 2. Bipolar disorder Psychiatry consult noted c/w Depakote, Risperdal and Ativan as per their recommendations 3. Normocytic anemia Hg stable will continue to follow 4. HTN Cont on Lisinopril and furosemide 5. Compensated, Systolic and Diastolic CHF (EF: 45-50%) Cont Lisinopril, Furosemide and Atorvastatin 6. DM2 Cont ISS 7. CAD Cont ticagrelor 9. Systolic CHF (EF: 45-50%) Cont furosemide, lisinopril, carvedilol 10. Dyslipidemia Cont atorvastatin 11. Tobacco dependence Cont nicotine patch 12. DVT prophylaxis Cont Lovenox Disposition: Will change the patient to ALC status, and await further delineation of disposition as per CM/PFS. VS, I&O, 24H, Fishbone Vital Signs/I&O Vital Signs Date Time Temp Pulse Resp B/P Pulse Ox O2 Delivery O2 Flow Rate FiO2 10/19/16 08:30 60 129/71 2/23/17 06:00 95.4 20 95 Room Air 10/13/16 17:00 2 I&O- Last 24 Hours up to 6 AM 10/19/16 06:00 Intake Total 1440 ml Output Total 0 ml Balance 1440 ml Laboratory Data 24H LABS Laboratory Tests 2 10/18/16 17:04: Bedside Glucose (Misc Panel) 112H 10/18/16 20:27: Bedside Glucose (Misc Panel) 117H 10/19/16 06:35: Blood Urea Nitrogen 24H, Creatinine 0.90, Sodium Level 142, Potassium Level 4.2 , Chloride Level 102, Carbon Dioxide Level 31, Calcium Level 9.2, Aspartate Amino Transf (AST/SGOT) 28, Alanine Aminotransferase (ALT/SGPT) 39, Alkaline Phosphatase 74, Total Bilirubin 0.6, Total Protein 6.5, Albumin 3.2, Albumin/ Globulin Ratio 0.97L, Anion Gap 9, White Blood Count 6.0, Red Blood Count 3.99L , Hemoglobin 13.1L, Hematocrit 36.1L, Mean Corpuscular Volume 90.6, Mean Corpuscular Hemoglobin 32.8, Mean Corpuscular Hemoglobin Concent 36.2, Red Cell Distribution Width 12.3, Platelet Count 144L, Neutrophils (%) (Auto) 63.2, Lymphocytes (%) (Auto) 24.4, Monocytes (%) (Auto) 6.8H, Eosinophils (%) (Auto) 2.9, Basophils (%) (Auto) 0.8, Neutrophils # (Auto) 3.8, Lymphocytes # (Auto) 1.6, Monocytes # (Auto) 0.4, Eosinophils # (Auto) 0.2, Basophils # (Auto) 0.0, Glomerular Filtration Rate > 60.0, Large Unclassified Cells # 0.1, Large Unclassified Cells % 1.8, Magnesium Level 2.3 10/19/16 12:05: Bedside Glucose (Misc Panel) 95 CBC/BMP Laboratory Tests 10/19/16 06:35 Calcium Level 9.2, Aspartate Amino Transf (AST/SGOT) 28, Alanine Aminotransferase (ALT/SGPT) 39, Alkaline Phosphatase 74, Total Bilirubin 0.6, Total Protein 6.5, Albumin 3.2, Red Blood Count 3.99 L, Mean Corpuscular Volume 90.6, Mean Corpuscular Hemoglobin 32.8, Mean Corpuscular Hemoglobin Concent 36.2 , Red Cell Distribution Width 12.3, Neutrophils (%) (Auto) 63.2, Lymphocytes (% ) (Auto) 24.4, Monocytes (%) (Auto) 6.8 H, Eosinophils (%) (Auto) 2.9, Basophils (%) (Auto) 0.8, Neutrophils # (Auto) 3.8, Lymphocytes # (Auto) 1.6, Monocytes # (Auto) 0.4, Eosinophils # (Auto) 0.2, Basophils # (Auto) 0.0 LEI PADILLA MD Oct 19, 2016 14:10
[2016-10-19 20:00] VITALS: BP 89/59
[2016-10-19] MEDS: LORazepam 0.5 MG TAB PO SCH (20:53)
[2016-10-19] MEDS: DIVALPROEX 250MG *ER* TAB PO SCH (20:54)
[2016-10-20 02:00] VITALS: BP 152/66
[2016-10-20 04:00] VITALS: BP 120/80
[2016-10-20] MEDS: SLF 3 ML SYR IV SCH (05:03)
[2016-10-20 06:00] VITALS: BP 103/57
[2016-10-20 07:00] LABS: BASO # 0.1 K/mm3 (0.0-0.2); BASO % 0.8 % (0.0-1.0); EOS # 0.2 K/mm3 (0.0-0.50); EOS % 2.7 % (0.0-3.0); LARGE UNSTAINED CELL # 0.1 K/mm3 (0.0-0.4); LARGE UNSTAINED CELL % 1.5 % (0.0-4.0); LYMPH # 1.6 K/mm3 (1.5-4.5); MEAN CORPUSCULAR HGB CONC 34.2 g/dl (32.0-36.5); MEAN CORPUSCULAR VOLUME 90.6 fl (80.0-96.0); MONO # 0.5 K/mm3 (0.0-0.8); MONO % 6.1 % (0.0-5.0); NEUTROPHILS % 68.9 % (36.0-66.0); PLATELET COUNT, AUTOMATED 135 k/mm3 (150-450); RED CELL DISTRIBUTION WIDTH 12.3 % (11.5-14.5); WHITE BLOOD COUNT 7.3 K/mm3 (4.0-10.0)
[2016-10-20 07:21] LABS: ALBUMIN 3.2 GM/DL (3.2-5.2); ALBUMIN/GLOBULIN RATIO 0.97 (1.00-1.93); ALKALINE PHOSPHATASE 75 U/L (45-117); ALT/SGPT 41 U/L (12-78); ANION GAP 7 MEQ/L (8-16); AST/SGOT 25 U/L (15-37); BILIRUBIN,TOTAL 0.6 MG/DL (0.2-1.0); BLOOD UREA NITROGEN 22 MG/DL (7-18); CALCIUM LEVEL 9.1 MG/DL (8.8-10.2); CARBON DIOXIDE LEVEL 33 MEQ/L (21-32); CHLORIDE LEVEL 101 MEQ/L (98-107); CREATININE FOR GFR 0.89 MG/DL (0.70-1.30); GLOMERULAR FILTRATION RATE > 60.0 (>42); GLUCOSE, FASTING 99 MG/DL (83-110); MAGNESIUM LEVEL 2.2 MG/DL (1.8-2.4); POTASSIUM SERUM 4.4 MEQ/L (3.5-5.1); SODIUM LEVEL 141 MEQ/L (136-145); TOTAL PROTEIN 6.5 GM/DL (6.4-8.2)
[2016-10-20] MEDS: HumaLOG INSULIN (NovoLOG) PER UNIT SC SCH ×2 (07:24→12:43)
[2016-10-20 08:25] VITALS: BP 134/61
[2016-10-20] MEDS: CARVedilol 3.125 MG TAB PO SCH (08:25)
[2016-10-20] MEDS: ATORVASTATIN 20 MG TAB PO SCH (08:26)
[2016-10-20] MEDS: ISOSORBIDE MON. (IMDUR) 30 MG XR TAB PO SCH (08:26)
[2016-10-20] MEDS: FUROSEMIDE 20 MG TAB PO SCH (08:26)
[2016-10-20] MEDS: AMIODARONE 200 MG TAB (PACERONE) PO SCH ×3 (08:27→17:03)
[2016-10-20] MEDS: risperiDONE 2 MG TAB PO SCH (08:27)
[2016-10-20] MEDS: LISINOPRIL *2.5 MG* TAB PO SCH (08:27)
[2016-10-20] MEDS: NICOTINE 14 MG/24 HR TRANSDERMAL TD SCH (08:30)
[2016-10-20] MEDS ORDERED: DEPA250T2 PO (16:13)
[2016-10-20] MEDS ORDERED: AMIO20TA PO (16:13)
[2016-10-20] MEDS ORDERED: ISOS30TA4 PO (16:13)
--- NOTE | 2016-10-20 17:34 | DS.PDOC ---
Discharge Summary General Date of Admission Oct 05, 2016 at 20:12 Date of Discharge 10/20/16 Specialist/Consultants Involve Dr. Adkins of Psychiatry, Dr. Johnson and Dr. Mckeon of Cardiology Discharge Summary PROCEDURES PERFORMED DURING STAY: Implantation of permanent dual-chamber pacemaker.. COMPLICATIONS/CHIEF COMPLAINT: Bradycardia,Symptomic Bradycardia ADMISSION DIAGNOSES: 1. Intermittent high-grade AV block with near syncope/syncope. 2. Diastolic congestive heart failure 3. Hypertension 4. Bipolar disorder DISCHARGE DIAGNOSES: 1. Intermittent high-grade AV block with near syncope/syncope. 2. Diastolic congestive heart failure 3. Hypertension 4. Bipolar disorder HISTORY OF PRESENT ILLNESS: 76-year-old male with past medical history of diabetes mellitus, coronary artery disease, congestive heart failure with ejection fraction of 35-40% from echo on 07/12, dyslipidemia, tobacco dependence, and bipolar disorder presents to the ER following 2 syncopal episodes over the last 48 hours. The extent of this history is limited given the patient's underlying history of bipolar disorder and noncompliance to his medications. I did obtain the bulk of this information from the ER physician. Apparently, the patient had 2 episodes of syncope over the last 48 hours that were witnessed by his sister at home. The patient states that he was feeling lightheaded and dizzy before these episodes. He notes that he was standing with the symptoms occurred and denies feeling any preceding chest pain, palpitations, shortness of breath, abdominal pain or any other symptoms aside from lightheadedness. He denies any trauma to the head, he denies loss of consciousness, and states that the symptoms only lasted for about 5 seconds. In the ER, an EKG revealed the patient to be in sinus bradycardia with intermittent high-grade AV block with near syncope/syncope. The patient was admitted to the hospitalist service, with a consultation placed to cardiology for further evaluation and management of the patient's arrhythmia. During hospitalization here, the patient had an implantation of a permanent dual chamber pacemaker placed on 10/13/2016. His troponins were noted to be negative, and a 2-D echocardiogram was ordered which revealed an ejection fraction of 45-50%, with grade 1 diastolic dysfunction. He was continued on his Lasix therapy, and remained euvolemic during his time here. In addition, he was continued on low dose Coreg, and he was started on amiodarone as well by cardiology. The patient was also seen by Dr. Adkins of psychiatry for his bipolar disorder with episodes of mar. The patient was started on Depakote 750 mg daily at bedtime, and maintained on Risperdal. At this time, the patient remains hemodynamically stable, and has been seen psychiatry with optimization of his psychiatric medications. The patient is set to be discharged today, and he will be living with his sister. The patient has been set up with [facility], who will help coordinate his care as an outpatient. He has also been set up with an appointment with [facility] for 10/26/2016 at 8 a.m. He will be initiated on injectable medication for bipolar disorder as he has a history of noncompliance in the past. The patient's sister, Saskia has been coordinating his care with our PFS staff here, and states that she will be able to take care of him, and ensure that he has a follow through with [facility] on the aforementioned date, as well as help coordinate his care with his mental health case manager Saskia Randolph. At this time, the patient states that he is feeling well and he is eager to return home. DISCHARGE MEDICATIONS: Please see below. ALLERGIES: Please see below. PHYSICAL EXAMINATION ON DISCHARGE: VITAL SIGNS: Please see below. General Exam: Positive: Alert, Cooperative, No Acute Distress ENT Exam: Positive: Atraumatic, Mucous membr. moist/pink Neck Exam: Negative: JVD Chest Exam: Positive: Clear to auscultation, Normal air movement Heart Exam: Positive: Normal S1, Normal S2, Rate Normal Abdomen Exam: Positive: Soft, Negative: Tenderness Extremity Exam: Negative: Swelling, Tenderness LABORATORY DATA: Please see below. IMAGING: The patient is status post pacemaker. Mediastinum and cardiac silhouette are stable. Lung [place] demonstrate chronic changes without acute consolidation, effusion, or pneumothorax. Skeletal structures intact. Impression: Stable chest x-ray. No acute cardiopulmonary process. No pneumothorax. VTE Prophylaxis ordered?: Yes DISCHARGE CONDITION: Stable. DISPOSITION: .Home ACTIVITY: .As Tolerated DIET: .2 gm Low Sodium Diet DISCHARGE PLAN AND INSTRUCTIONS: F/U with w/Kenyetta Jerez /[facility]ARR[facility] gang supervisor F/U with [facility] for 10-26-16 at 8am w/Marie Marsh Appointment with on October 27 at 11am phone:[phone] F/U with HCR /casemngr,Saskia Randolph [phone] pt needs appointment with next week preferably October 25 and in 1 month for a pacemaker check phone:[phone] keep dressing over pacemaker sites dry call or return to er with shortness of breath,weakness,dizziness,or any concerns TIME SPENT ON DISCHARGE: Greater than 30 minutes. Vital Signs/I&Os Vital Signs Date Time Temp Pulse Resp B/P Pulse Ox O2 Delivery O2 Flow Rate FiO2 10/20/16 08:25 68 134/61 10/20/16 06:00 97.0 18 98 Room Air I&O- Last 24 Hours up to 6 AM 10/20/16 06:00 Intake Total 1200 ml Output Total 0 ml Balance 1200 ml Laboratory Data Labs 24H Laboratory Tests 2 10/19/16 19:43: Bedside Glucose (Misc Panel) 154H 10/20/16 06:32: Blood Urea Nitrogen 22H, Creatinine 0.89, Sodium Level 141, Potassium Level 4.4 , Chloride Level 101, Carbon Dioxide Level 33H, Calcium Level 9.1, Aspartate Amino Transf (AST/SGOT) 25, Alanine Aminotransferase (ALT/SGPT) 41, Alkaline Phosphatase 75, Total Bilirubin 0.6, Total Protein 6.5, Albumin 3.2, Albumin/ Globulin Ratio 0.97L, Anion Gap 7L, White Blood Count 7.3, Red Blood Count 3.91L , Hemoglobin 12.1L, Hematocrit 35.4L, Mean Corpuscular Volume 90.6, Mean Corpuscular Hemoglobin 31.0, Mean Corpuscular Hemoglobin Concent 34.2, Red Cell Distribution Width 12.3, Platelet Count 135L, Neutrophils (%) (Auto) 68.9H, Lymphocytes (%) (Auto) 20.0L, Monocytes (%) (Auto) 6.1H, Eosinophils (%) (Auto) 2.7, Basophils (%) (Auto) 0.8, Neutrophils # (Auto) 5.0, Lymphocytes # (Auto) 1.6, Monocytes # (Auto) 0.5, Eosinophils # (Auto) 0.2, Basophils # (Auto) 0.1, Glomerular Filtration Rate > 60.0, Large Unclassified Cells # 0.1, Large Unclassified Cells % 1.5, Magnesium Level 2.2 10/20/16 11:55: Bedside Glucose (Misc Panel) 113H CBC/BMP Laboratory Tests 10/20/16 06:32 Calcium Level 9.1, Aspartate Amino Transf (AST/SGOT) 25, Alanine Aminotransferase (ALT/SGPT) 41, Alkaline Phosphatase 75, Total Bilirubin 0.6, Total Protein 6.5, Albumin 3.2, Red Blood Count 3.91 L, Mean Corpuscular Volume 90.6, Mean Corpuscular Hemoglobin 31.0, Mean Corpuscular Hemoglobin Concent 34.2 , Red Cell Distribution Width 12.3, Neutrophils (%) (Auto) 68.9 H, Lymphocytes ( %) (Auto) 20.0 L, Monocytes (%) (Auto) 6.1 H, Eosinophils (%) (Auto) 2.7, Basophils (%) (Auto) 0.8, Neutrophils # (Auto) 5.0, Lymphocytes # (Auto) 1.6, Monocytes # (Auto) 0.5, Eosinophils # (Auto) 0.2, Basophils # (Auto) 0.1 FSBS Laboratory Tests Test 10/19/16 19:43 10/20/16 11:55 Range/Units Bedside Glucose (Misc Panel) 154 113 83-110 MG/DL Medications Scheduled (Risperidone) 2 Mg Tab 2 MG PO DAILY (Reported) Amiodarone HCl (Amiodarone HCl) 200 Mg Tab 200 MG PO QID Aspirin (Aspirin 81) 81 Mg Tab 81 MG PO DAILY (Reported) Carvedilol (Carvedilol) 3.125 Mg Tab 3.125 MG PO BID (Reported) Divalproex Sodium (Depakote ER) 250 Mg Tab 750 MG PO QHS Furosemide (Furosemide) 20 Mg Tab 20 MG PO DAILY (Reported) Isosorbide Mononitrate (Isosorbide Mononitrate ER) 30 Mg Tab 30 MG PO DAILY Lisinopril (Lisinopril) 5 Mg Tab 5 MG PO DAILY (Reported) Lovastatin (Lovastatin) 20 Mg Tab 20 MG PO DAILY (Reported) Metformin Hydrochloride (Metformin HCl) 1,000 Mg Tab 1,000 MG PO BID (Reported ) Allergies Coded Allergies: No Known Allergies (Unverified , 10/05/16) LEI PADILLA MD Oct 20, 2016 17:34
== END 2016-10-20 17:40 | disposition home or self-care (01) | DRG 243 ==
LOC: M ED 16:19 → M ED INP 20:12 → M PCU 10-06 14:54 → M MS5PR 10-16 16:45
PROVIDERS: ADMIT Internal Medicine; ATTEND Internal Medicine
PROC: 0JH606Z Insertion of Pacemaker, Dual Chamber into Chest Subcutaneous Tissue and Fascia, Open Approach (ICD-10-PCS; 2016-10-13)
PROC: 02HK3JZ Insertion of Pacemaker Lead into Right Ventricle, Percutaneous Approach (ICD-10-PCS; 2016-10-13)
PROC: 02H63JZ Insertion of Pacemaker Lead into Right Atrium, Percutaneous Approach (ICD-10-PCS; principal; 2016-10-13 15:00)
DX: I47.2 Ventricular tachycardia (principal); I50.42 Chronic combined systolic (congestive) and diastolic (congestive) heart failure; F31.2 Bipolar disorder, current episode manic severe with psychotic features; I42.9 Cardiomyopathy, unspecified; I44.0 Atrioventricular block, first degree; I44.2 Atrioventricular block, complete; I11.9 Hypertensive heart disease without heart failure; E11.9 Type 2 diabetes mellitus without complications; I25.10 Atherosclerotic heart disease of native coronary artery without angina pectoris; E78.5 Hyperlipidemia, unspecified; Z91.19 Patient's noncompliance with other medical treatment and regimen; Z79.899 Other long term (current) drug therapy; Z79.82 Long term (current) use of aspirin; F17.200 Nicotine dependence, unspecified, uncomplicated; D50.9 Iron deficiency anemia, unspecified

== ENCOUNTER 2016-11-05 11:41 | Emergency (ER) | payer MEDICARE, MEDICAID ==
[~2016-11-05] VITALS: Ht 167.6 cm; Wt 68.0 kg
[~2016-11-05 11:41] MED LIST: AMIO20TA PO; ASPI1TAB PO; CARV3.12 PO; DEPA250T2 PO; FURO20TA2 PO; ISOS30TA4 PO; LISI-542 PO; LOVA20TA2 PO; METF1000 PO; RISP2TAB3 PO
[2016-11-05 12:29] LABS: BASO % 0.4 % (0.0-1.0); EOS # 0.2 K/mm3 (0.0-0.50); EOS % 3.3 % (0.0-3.0); LARGE UNSTAINED CELL % 0.9 % (0.0-4.0); LYMPH # 0.9 K/mm3 (1.5-4.5); MEAN CORPUSCULAR HEMOGLOBIN 31.4 pg (27.0-33.0); MEAN CORPUSCULAR VOLUME 92.3 fl (80.0-96.0); MONO # 0.3 K/mm3 (0.0-0.8); MONO % 5.5 % (0.0-5.0); NEUTROPHILS # 3.4 K/mm3 (1.8-7.7); NEUTROPHILS % 70.9 % (36.0-66.0); PLATELET COUNT, AUTOMATED 151 k/mm3 (150-450); RED CELL DISTRIBUTION WIDTH 13.3 % (11.5-14.5); WHITE BLOOD COUNT 4.8 K/mm3 (4.0-10.0)
[2016-11-05 12:35] LABS: INR 1.11
[2016-11-05 12:58] LABS: ALBUMIN 3.1 GM/DL (3.2-5.2); ALBUMIN/GLOBULIN RATIO 1.03 (1.00-1.93); ALKALINE PHOSPHATASE 59 U/L (45-117); ALT/SGPT 18 U/L (12-78); ANION GAP 10 MEQ/L (8-16); AST/SGOT 15 U/L (15-37); BILIRUBIN,DIRECT 0.1 MG/DL (0.0-0.2); BILIRUBIN,TOTAL 0.3 MG/DL (0.2-1.0); BLOOD UREA NITROGEN 13 MG/DL (7-18); CALCIUM LEVEL 8.7 MG/DL (8.8-10.2); CARBON DIOXIDE LEVEL 29 MEQ/L (21-32); CHLORIDE LEVEL 105 MEQ/L (98-107); CREATININE FOR GFR 0.75 MG/DL (0.70-1.30); GLOMERULAR FILTRATION RATE > 60.0 (>42); GLUCOSE, FASTING 96 MG/DL (83-110); POTASSIUM SERUM 4.3 MEQ/L (3.5-5.1); SODIUM LEVEL 144 MEQ/L (136-145); TOTAL PROTEIN 6.1 GM/DL (6.4-8.2)
[2016-11-05] MEDS ORDERED: ASPIRIN 81 MG CHEW TABLET PO ONE (13:00)
[2016-11-05] MEDS ORDERED: NITROGLYCERIN 0.4 MG SUBL TABLET SL PRN (13:00)
[2016-11-05] MEDS ORDERED: ISOVUE-370 76% 100ML VIAL (Q9967) As Ordered ONE (13:09)
[2016-11-05 15:20] VITALS: BP 181/85
--- NOTE | 2016-11-05 19:53 | ECGEPIP ---
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
--- NOTE | 2016-11-06 06:21 | REP ---
Chest pain. COMPARISON: 10/14/2016. There is cardiomegaly, status quo. Pacemaker device, unchanged. Lung [place] unchanged. No acute patchy parenchymal opacities or pleural effusions are present. There are mild fibrotic changes, status quo. There is no change in the osseous structures. IMPRESSION: Stable chronic changes as described above without evidence of acute cardiopulmonary disease. Signed by Mark Salas DO 11/06/2016 12:05 P
--- NOTE | 2016-11-06 06:40 | REP ---
Reason: Chest pain. Comparison: None. Contrast: 100 mL Isovue 370. There is excellent visualization of the pulmonary arterial vasculature and there are no abnormal focal filling defects that would be considered consistent with pulmonary emboli. There is no mediastinal or hilar adenopathy. Calcific atherosclerotic changes are seen in the thoracic aorta. There is poor contrast opacification of the thoracic aorta secondary to the technique and injection timing necessary to obtain CTA of the pulmonary arterial system. There is a slight area of irregular calcification seen along the lateral wall of the aortic arch possibly secondary to a small aneurysm. There is a slight caliber change of the aortic arch at that level. There are no pleural or pericardial effusions. The imaged upper abdomen shows a round low density lesion arising from the superior pole of the right kidney measuring 2.8 cm and having water Hounsfield unit readings consistent with a simple cyst. Bone window technique throughout the exam shows the osseous structures to be within normal limits for the patient's age. Spinal degenerative changes are present. There is a right sided pacemaker battery noted. Evaluation of the lung [place] show bibasilar subsegmental atelectatic changes and dependent atelectatic changes. There are a few incidental scattered calcified granulomas. There is no evidence of a significant abnormal pulmonary nodule, mass, or opacity. IMPRESSION: 1. No evidence of a pulmonary embolus. 2. Possible minimal thoracic aortic aneurysm as described above. 3. Simple right renal cyst. 4. Other findings as described above. Signed by Mark Salas DO 11/06/2016 12:05 P
--- NOTE | 2016-11-07 11:25 | ED PDOC ---
Provider Note radiology report faxed to Deborah Borja and Raghu Mckeon Sarah MD Nov 07, 2016 11:25
== END 2016-11-05 15:26 | disposition home or self-care (01) ==
LOC: M ED 13:18
DX: R07.9 Chest pain, unspecified (principal); I50.9 Heart failure, unspecified; I10 Essential (primary) hypertension; I42.9 Cardiomyopathy, unspecified; I44.0 Atrioventricular block, first degree; Z95.0 Presence of cardiac pacemaker; Z79.899 Other long term (current) drug therapy; Z79.84 Long term (current) use of oral hypoglycemic drugs; Z79.82 Long term (current) use of aspirin
CPT/HCPCS: 36415; 71020; 71275; 80048; 80076; 82550; 82553; 83690; 83880; 84484; 85025; 85610; 85730; 93005; 93041; 94760; 99285; Q9967

== ENCOUNTER → 2016-11-21 | Outpatient (CLI) | payer MEDICARE, MEDICAID ==
--- NOTE | 2016-11-21 09:37 | REP ---
Clinical: Pain and decreased range of motion. History of prior trauma. Technique: Internal rotation, external rotation, and Y view of the right shoulder. Findings: Chronic acromioclavicular joint separation is consistent with the patient's history of prior trauma. Glenohumeral joint appears intact blunting to the glenoid rim with inferior spurring is consistent with moderate degenerative change. Subacromial space is normal. No significant periarticular calcifications identified. Impression: Presumed chronic AC joint separation consistent with old injury. 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 Signed by Kranthi Martins MD 11/21/2016 09:29 A
== END ==
LOC: M LRY 08:54
PROVIDERS: ATTEND Family Medicine
DX: M25.511 Pain in right shoulder (principal)

== ENCOUNTER → 2016-12-16 | Outpatient (CLI) | payer MEDICARE, MEDICAID ==
[2016-12-16 12:42] LABS: ALBUMIN 3.4 GM/DL (3.2-5.2); ALBUMIN/GLOBULIN RATIO 1.06 (1.00-1.93); ALKALINE PHOSPHATASE 65 U/L (45-117); ALT/SGPT 31 U/L (12-78); ANION GAP 8 MEQ/L (8-16); AST/SGOT 16 U/L (15-37); BILIRUBIN,TOTAL 0.4 MG/DL (0.2-1.0); BLOOD UREA NITROGEN 22 MG/DL (7-18); CARBON DIOXIDE LEVEL 30 MEQ/L (21-32); CHLORIDE LEVEL 100 MEQ/L (98-107); CREATININE FOR GFR 1.12 MG/DL (0.70-1.30); GLOMERULAR FILTRATION RATE > 60.0 (>42); GLUCOSE, FASTING 104 MG/DL (83-110); POTASSIUM SERUM 4.9 MEQ/L (3.5-5.1); SODIUM LEVEL 138 MEQ/L (136-145); TOTAL PROTEIN 6.6 GM/DL (6.4-8.2)
== END ==
LOC: M LAB 11:48
PROVIDERS: ATTEND Nurse Practitioner Family
DX: F31.11 Bipolar disorder, current episode manic without psychotic features, mild (principal)

== ENCOUNTER → 2017-01-09 | Outpatient (REF) | payer MEDICARE, MEDICAID ==
[2017-01-09 17:29] LABS: BASO % 0.7 % (0.0-1.0); EOS # 0.2 K/mm3 (0.0-0.50); EOS % 4.1 % (0.0-3.0); LARGE UNSTAINED CELL # 0.1 K/mm3 (0.0-0.4); LARGE UNSTAINED CELL % 1.3 % (0.0-4.0); LYMPH % 17.6 % (24.0-44.0); MEAN CORPUSCULAR HEMOGLOBIN 31.4 pg (27.0-33.0); MEAN CORPUSCULAR HGB CONC 32.9 g/dl (32.0-36.5); MEAN CORPUSCULAR VOLUME 95.3 fl (80.0-96.0); MONO # 0.4 K/mm3 (0.0-0.8); MONO % 7.3 % (0.0-5.0); PLATELET COUNT, AUTOMATED 141 k/mm3 (150-450); RED CELL DISTRIBUTION WIDTH 14.2 % (11.5-14.5); WHITE BLOOD COUNT 5.9 K/mm3 (4.0-10.0)
== END ==
LOC: M SFHCLERA 10:13
PROVIDERS: ATTEND Family Medicine
DX: Z01.818 Encounter for other preprocedural examination (principal); H26.9 Unspecified cataract; E11.9 Type 2 diabetes mellitus without complications; F31.9 Bipolar disorder, unspecified
CPT/HCPCS: 80164; 83036; 85025; G0463

== ENCOUNTER → 2017-04-12 | Outpatient (REF) | payer MEDICARE, MEDICAID ==
[~2017-04-12] MED LIST changes: +AMIO200T; +AMIO200T PO; -AMIO20TA PO; +ASPI1TAB15; +BACIOIN5 OP; +CARV6.25; +DEPA250T2; +DIVA250T7; +FURO20TA2; +LOVA20TA2; -METF1000 PO; +METF10004; +METF10004 PO; +QUET1TAB7 PO; +RISP2TAB32; +SPIR25TA2 PO; +STOO100C PO; +TRAZ50TA11
[2017-04-12 17:51] LABS: ANION GAP 6 MEQ/L (8-16); BLOOD UREA NITROGEN 12 MG/DL (7-18); CALCIUM LEVEL 9.6 MG/DL (8.8-10.2); CARBON DIOXIDE LEVEL 33 MEQ/L (21-32); CHLORIDE LEVEL 102 MEQ/L (98-107); CREATININE FOR GFR 0.97 MG/DL (0.70-1.30); GLOMERULAR FILTRATION RATE > 60.0 (>42); GLUCOSE, FASTING 135 MG/DL (83-110); POTASSIUM SERUM 4.6 MEQ/L (3.5-5.1); SODIUM LEVEL 141 MEQ/L (136-145)
== END ==
LOC: M SFHCLERA 11:47
PROVIDERS: ATTEND Family Medicine
DX: E11.9 Type 2 diabetes mellitus without complications (principal); F17.210 Nicotine dependence, cigarettes, uncomplicated
CPT/HCPCS: 80048; 82043; 83036; 99406; G0463

== ENCOUNTER 2017-04-17 10:37 | Emergency (ER) | payer MEDICARE, MEDICAID ==
[~2017-04-17] VITALS: Ht 167.6 cm; Wt 70.9 kg
[~2017-04-17 10:37] MED LIST changes: -BACIOIN5 OP; -QUET1TAB7 PO; -SPIR25TA2 PO; -STOO100C PO
[2017-04-17] MEDS ORDERED: LISI-542 PO (10:52)
[2017-04-17] MEDS ORDERED: SPIR25TA2 PO (10:52)
[2017-04-17] MEDS ORDERED: ISOS30TA4 PO (10:52)
[2017-04-17 11:51] LABS: BASO # 0.1 K/mm3 (0.0-0.2); BASO % 1.1 % (0.0-1.0); EOS # 0.1 K/mm3 (0.0-0.50); EOS % 1.9 % (0.0-3.0); LARGE UNSTAINED CELL # 0.1 K/mm3 (0.0-0.4); LARGE UNSTAINED CELL % 1.2 % (0.0-4.0); LYMPH # 1.2 K/mm3 (1.5-4.5); LYMPH % 18.7 % (24.0-44.0); MEAN CORPUSCULAR HEMOGLOBIN 32.9 pg (27.0-33.0); MEAN CORPUSCULAR HGB CONC 33.4 g/dl (32.0-36.5); MEAN CORPUSCULAR VOLUME 98.5 fl (80.0-96.0); MONO # 0.3 K/mm3 (0.0-0.8); MONO % 4.2 % (0.0-5.0); NEUTROPHILS # 4.3 K/mm3 (1.8-7.7); PLATELET COUNT, AUTOMATED 129 k/mm3 (150-450); RED CELL DISTRIBUTION WIDTH 13.1 % (11.5-14.5); WHITE BLOOD COUNT 5.9 K/mm3 (4.0-10.0)
--- NOTE | 2017-04-17 12:04 | REP ---
PORTABLE CHEST: AP portable view of the chest is performed. There is cardiomegaly. Interstitial markings are prominent which may be acute or chronic in nature. No consolidation is seen. Pacemaker is noted. There are two leads. A few tiny nodular densities in the right lung base and one in the right apex may represent tiny calcified granulomas. Further evaluation may be made with CT of the chest. Signed by Julio Cesar Verde MD 04/17/2017 04:40 P
[2017-04-17 12:13] LABS: ALBUMIN 3.4 GM/DL (3.2-5.2); ALBUMIN/GLOBULIN RATIO 0.87 (1.00-1.93); ALKALINE PHOSPHATASE 67 U/L (45-117); ALT/SGPT 29 U/L (12-78); ANION GAP 5 MEQ/L (8-16); AST/SGOT 8 U/L (15-37); BILIRUBIN,DIRECT 0.2 MG/DL (0.0-0.2); BILIRUBIN,TOTAL 0.7 MG/DL (0.2-1.0); BLOOD UREA NITROGEN 14 MG/DL (7-18); CALCIUM LEVEL 9.3 MG/DL (8.8-10.2); CARBON DIOXIDE LEVEL 32 MEQ/L (21-32); CHLORIDE LEVEL 101 MEQ/L (98-107); CREATININE FOR GFR 1.06 MG/DL (0.70-1.30); GLOMERULAR FILTRATION RATE > 60.0 (>42); GLUCOSE, FASTING 188 MG/DL (83-110); POTASSIUM SERUM 4.1 MEQ/L (3.5-5.1); SODIUM LEVEL 138 MEQ/L (136-145); TOTAL PROTEIN 7.3 GM/DL (6.4-8.2)
[2017-04-17] MEDS ORDERED: ISOVUE-370 76% 100ML VIAL (Q9967) As Ordered ONE (13:44)
--- NOTE | 2017-04-17 15:07 | REP ---
CT PULMONARY ANGIOGRAM: WITH IV CONTRAST. HISTORY: Chest pain, shortness of breath. COMPARISON STUDIES: Today's comparison chest x-ray. CONTRAST DOSE: 75 mL of Isovue-[address] TECHNIQUE: Helical scanning is acquired and overlapping 1.5 mm and contiguous 3 mm axial images are reformatted. In addition, a 3-D work station is deployed to generate thick slab maximum intensity projection images in sagittal and coronal imaging projections. CT PULMONARY ANGIOGRAPHIC FINDINGS: There is good opacification of the pulmonary arterial tree. There is no CT evidence of pulmonary embolism. Thoracic aorta is heavily calcified but normal in caliber. No dissection seen. A pacemaker is noted in the right heart. The heart is somewhat enlarged, and there is a small pericardial effusion noted. Maximum intensity projection images show no vessel cutoff or filling defect. There are granulomatous calcifications scattered about the lungs. No significant pulmonary nodule is seen. There are inspissated endobronchial secretions filling the segmental and subsegmental bronchi in the left lower lobe extending up to the left lower lobe lobar bronchus. There is evidence of bronchiectasis. No other endobronchial disease is seen. No hilar or mediastinal mass or adenopathy is observed. There is a cyst in the upper pole of the right kidney which measures 2.6 cm. IMPRESSION: 1. No CT evidence of pulmonary embolism. 2. Small pericardial effusion. 3. Inspissated secretions fill the bronchial tree throughout the left lower lobe including the left lower lobe bronchus proximally. Question endobronchial neoplasm versus inspissated secretions. Bronchiectasis left lower lobe. No mass or adenopathy seen. Old granulomatous calcifications in the lung [place]. Signed by Carl Fitzgerald MD 04/17/2017 03:09 P
[2017-04-17 19:22] VITALS: BP 110/69
--- NOTE | 2017-04-18 08:34 | ECGEPIP ---
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
--- NOTE | 2017-04-21 10:22 | ED PDOC ---
Post-Departure Follow-Up dr parker faxed formal report of cxr for fu David Aragon MD Apr 21, 2017 10:22
--- NOTE | 2017-04-21 10:22 | ED PDOC ---
Post-Departure Follow-Up cta chest also faxed to dr parker for fu David Aragon MD Apr 21, 2017 10:22
== END 2017-04-17 19:51 | disposition home or self-care (01) ==
LOC: MERGE 10:37 → M ED 10:37
DX: J47.9 Bronchiectasis, uncomplicated (principal); R07.9 Chest pain, unspecified; I31.3 Pericardial effusion (noninflammatory); J98.09 Other diseases of bronchus, not elsewhere classified; R91.8 Other nonspecific abnormal finding of lung field; Z95.0 Presence of cardiac pacemaker; E11.9 Type 2 diabetes mellitus without complications; I10 Essential (primary) hypertension; F17.200 Nicotine dependence, unspecified, uncomplicated; Z79.82 Long term (current) use of aspirin; Z79.899 Other long term (current) drug therapy
CPT/HCPCS: 71010; 71275; 80048; 80076; 82550; 82553; 83690; 83880; 84484; 85025; 93005; 93041; 94760; 99285; Q9967

== ENCOUNTER 2017-04-28 13:16 | Emergency (ER) | payer MEDICARE, MEDICAID ==
[~2017-04-28] VITALS: Ht 167.6 cm; Wt 81.8 kg
[~2017-04-28 13:16] MED LIST changes: +SPIR25TA2 PO
[2017-04-28] MEDS ORDERED: QUET1TAB7 PO (13:44)
[2017-04-28] MEDS ORDERED: BACIOIN5 OP (15:41)
[2017-04-28] MEDS ORDERED: STOO100C PO (15:41)
[2017-04-28 16:00] VITALS: BP 88/64
== END 2017-04-28 16:03 | disposition home or self-care (01) ==
LOC: MERGE 13:16 → M ED 13:16
DX: K59.00 Constipation, unspecified (principal); I10 Essential (primary) hypertension; E78.00 Pure hypercholesterolemia, unspecified; E11.9 Type 2 diabetes mellitus without complications; G47.00 Insomnia, unspecified; I25.2 Old myocardial infarction; G62.9 Polyneuropathy, unspecified; F17.200 Nicotine dependence, unspecified, uncomplicated; Z95.0 Presence of cardiac pacemaker; Z79.82 Long term (current) use of aspirin; Z79.899 Other long term (current) drug therapy

== ENCOUNTER 2017-05-14 12:21 | Emergency (ER) | payer MEDICARE, MEDICAID ==
[~2017-05-14] VITALS: Ht 167.6 cm; Wt 69.2 kg
[~2017-05-14 12:21] MED LIST changes: +BACIOIN5 OP; +QUET1TAB7 PO; +STOO100C PO
[2017-05-14 13:03] LABS: INR 1.01
[2017-05-14 13:09] LABS: BASO % 0.6 % (0.0-1.0); EOS # 0.2 K/mm3 (0.0-0.50); EOS % 3.3 % (0.0-3.0); LARGE UNSTAINED CELL # 0.1 K/mm3 (0.0-0.4); LARGE UNSTAINED CELL % 1.5 % (0.0-4.0); LYMPH # 1.5 K/mm3 (1.5-4.5); LYMPH % 20.5 % (24.0-44.0); MEAN CORPUSCULAR HEMOGLOBIN 32.1 pg (27.0-33.0); MEAN CORPUSCULAR HGB CONC 33.9 g/dl (32.0-36.5); MEAN CORPUSCULAR VOLUME 94.7 fl (80.0-96.0); MONO # 0.5 K/mm3 (0.0-0.8); MONO % 7.6 % (0.0-5.0); NEUTROPHILS # 4.5 K/mm3 (1.8-7.7); NEUTROPHILS % 66.5 % (36.0-66.0); PLATELET COUNT, AUTOMATED 144 k/mm3 (150-450); RED CELL DISTRIBUTION WIDTH 12.8 % (11.5-14.5); WHITE BLOOD COUNT 6.8 K/mm3 (4.0-10.0)
[2017-05-14 13:32] LABS: ALBUMIN 3.4 GM/DL (3.2-5.2); ALBUMIN/GLOBULIN RATIO 0.92 (1.00-1.93); ALKALINE PHOSPHATASE 52 U/L (45-117); ALT/SGPT 29 U/L (12-78); AMYLASE 41 U/L (25-115); ANION GAP 4 MEQ/L (8-16); AST/SGOT 15 U/L (15-37); BILIRUBIN,DIRECT 0.2 MG/DL (0.0-0.2); BILIRUBIN,TOTAL 0.5 MG/DL (0.2-1.0); BLOOD UREA NITROGEN 25 MG/DL (7-18); CALCIUM LEVEL 9.1 MG/DL (8.8-10.2); CARBON DIOXIDE LEVEL 35 MEQ/L (21-32); CHLORIDE LEVEL 97 MEQ/L (98-107); CREATININE FOR GFR 1.09 MG/DL (0.70-1.30); GLOMERULAR FILTRATION RATE > 60.0 (>42); GLUCOSE, FASTING 90 MG/DL (83-110); POTASSIUM SERUM 4.6 MEQ/L (3.5-5.1); SODIUM LEVEL 136 MEQ/L (136-145); TOTAL PROTEIN 7.1 GM/DL (6.4-8.2)
--- NOTE | 2017-05-14 14:04 | REP ---
Portable chest, single AP view, the patient semi upright: Comparison is 10/26. The lung [place] are clear. The cardiac size is normal. The benito, mediastinum, and bony thorax are unremarkable. Impression: Negative portable chest. A dual-chamber pacemaker entering from the right is incidentally identified. Signed by Julio Cesar Patino MD 05/14/2017 01:55 P
[2017-05-14 16:12] VITALS: BP 111/69
--- NOTE | 2017-05-14 20:01 | ECGEPIP ---
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
== END 2017-05-14 16:32 | disposition home or self-care (01) ==
LOC: EDBD 12:21 → M ED 12:21
DX: I11.0 Hypertensive heart disease with heart failure (principal); I50.9 Heart failure, unspecified; E11.9 Type 2 diabetes mellitus without complications; F31.9 Bipolar disorder, unspecified; F17.210 Nicotine dependence, cigarettes, uncomplicated; Z79.899 Other long term (current) drug therapy; Z79.82 Long term (current) use of aspirin; Z95.0 Presence of cardiac pacemaker
CPT/HCPCS: 71010; 80048; 80076; 82150; 82550; 82553; 83605; 84484; 85025; 85610; 85730; 86140; 86850; 86900; 86901; 87040; 93005; 93041; 94760; 99285; G0463

== ENCOUNTER → 2017-05-21 | Outpatient (CLI) | payer MEDICARE, MEDICAID ==
[2017-05-21 14:38] LABS: BASO # 0.1 10^3/uL (0.0-0.2); BASO % 0.9 % (0.0-1.0); EOS # 0.3 10^3/uL (0.0-0.50); IMMATURE GRANULOCYTE % 0.4 % (0-0); LYMPH # 1.8 10^3/uL (1.5-4.5); LYMPH % 20.1 % (24.0-44.0); MEAN CORPUSCULAR HEMOGLOBIN 31.9 pg (27.0-33.0); MEAN CORPUSCULAR VOLUME 93.8 fl (80.0-96.0); MONO # 0.6 10^3/uL (0.0-0.8); MONO % 7.2 % (0.0-5.0); NEUTROPHILS # 6.1 10^3/uL (1.8-7.7); NEUTROPHILS % 68.4 % (36.0-66.0); PLATELET COUNT, AUTOMATED 160 10^3/uL (150-450); RED CELL DISTRIBUTION WIDTH 13.2 % (11.5-14.5); WHITE BLOOD COUNT 8.9 10^3/uL (4.0-10.0)
[2017-05-21 15:25] LABS: ALBUMIN 3.7 GM/DL (3.2-5.2); ALBUMIN/GLOBULIN RATIO 1.12 (1.00-1.93); ALKALINE PHOSPHATASE 55 U/L (45-117); ALT/SGPT 32 U/L (12-78); ANION GAP 9 MEQ/L (8-16); AST/SGOT 15 U/L (15-37); BILIRUBIN,TOTAL 0.6 MG/DL (0.2-1.0); BLOOD UREA NITROGEN 18 MG/DL (7-18); CALCIUM LEVEL 9.3 MG/DL (8.8-10.2); CARBON DIOXIDE LEVEL 29 MEQ/L (21-32); CHLORIDE LEVEL 99 MEQ/L (98-107); CHOLESTEROL LEVEL 128 MG/DL (<200); CREATININE FOR GFR 1.05 MG/DL (0.70-1.30); GLOMERULAR FILTRATION RATE > 60.0 (>42); GLUCOSE, FASTING 105 MG/DL (83-110); POTASSIUM SERUM 4.8 MEQ/L (3.5-5.1); SODIUM LEVEL 137 MEQ/L (136-145); TRIGLYCERIDES LEVEL 137 MG/DL (<150)
== END ==
LOC: M SMT 10:47
PROVIDERS: ATTEND Registered Nurse Psychiatric/Mental Health
DX: F31.11 Bipolar disorder, current episode manic without psychotic features, mild (principal); E11.9 Type 2 diabetes mellitus without complications

== ENCOUNTER 2017-09-09 23:02 | Inpatient (IN) | payer MEDICARE, MEDICAID ==
[2017-09-10 01:18] LABS: BASO # 0.1 10^3/uL (0.0-0.2); BASO % 0.9 % (0.0-1.0); EOS # 0.3 10^3/uL (0.0-0.50); EOS % 5.1 % (0.0-3.0); HEMATOCRIT 37.6 % (42.0-52.0); HEMOGLOBIN 12.7 g/dl (14.0-18.0); IMMATURE GRANULOCYTE % 0.2 % (0-0); LYMPH # 1.9 10^3/uL (1.5-4.5); LYMPH % 29.6 % (24.0-44.0); MEAN CORPUSCULAR HEMOGLOBIN 32.2 pg (27.0-33.0); MEAN CORPUSCULAR HGB CONC 33.8 g/dl (32.0-36.5); MEAN CORPUSCULAR VOLUME 95.4 fl (80.0-96.0); MONO # 0.6 10^3/uL (0.0-0.8); MONO % 8.5 % (0.0-5.0); NEUTROPHILS # 3.6 10^3/uL (1.8-7.7); NEUTROPHILS % 55.7 % (36.0-66.0); PLATELET COUNT, AUTOMATED 137 10^3/uL (150-450); RED BLOOD COUNT 3.94 10^6/uL (4.30-6.10); RED CELL DISTRIBUTION WIDTH 12.5 % (11.5-14.5); WHITE BLOOD COUNT 6.5 10^3/uL (4.0-10.0)
[2017-09-10 01:36] LABS: ACETAMINOPHEN LEVEL < 2.0 UG/ML (10.0-30.0); ALBUMIN 3.5 GM/DL (3.2-5.2); ALBUMIN/GLOBULIN RATIO 1.17 (1.00-1.93); ALKALINE PHOSPHATASE 80 U/L (45-117); ALT/SGPT 16 U/L (12-78); ANION GAP 6 MEQ/L (8-16); AST/SGOT 15 U/L (7-37); BILIRUBIN,DIRECT 0.2 MG/DL (0.0-0.2); BILIRUBIN,TOTAL 0.6 MG/DL (0.2-1.0); BLOOD UREA NITROGEN 20 MG/DL (7-18); C REACTIVE PROTEIN QUANTITATIV 1.97 MG/DL (0.00-0.30); CALCIUM LEVEL 8.5 MG/DL (8.8-10.2); CARBON DIOXIDE LEVEL 30 MEQ/L (21-32); CHLORIDE LEVEL 108 MEQ/L (98-107); CREATININE FOR GFR 0.86 MG/DL (0.70-1.30); GLOMERULAR FILTRATION RATE > 60.0 (>42); GLUCOSE, FASTING 77 MG/DL (83-110); POTASSIUM SERUM 3.8 MEQ/L (3.5-5.1); SALICYLATE LEVEL 2.4 MG/DL (5.0-30.0); SODIUM LEVEL 144 MEQ/L (136-145); TOTAL PROTEIN 6.5 GM/DL (6.4-8.2)
[2017-09-10 01:52] LABS: ETHYL ALCOHOL (ETHANOL) < 0.003 % (0.000-0.010)
[2017-09-10] MEDS: NICOTINE 21MG/24HR 1 EA TRANSDERMAL TD (04:03)
[2017-09-10 04:23] LABS: AMPHETAMINES LEVEL URINE NEGATIVE (NEGATIVE); BARBITURATES URINE NEGATIVE (NEGATIVE); BENZODIAZEPINES URINE NEGATIVE (NEGATIVE); CANNABINOIDS URINE NEGATIVE (NEGATIVE); COCAINE METABOLITE URINE NEGATIVE (NEGATIVE); METHADONE URINE NEGATIVE (NEGATIVE); OPIATES URINE NEGATIVE (NEGATIVE); PHENCYCLIDINE URINE NEGATIVE (NEGATIVE)
[2017-09-10] MEDS: QUEtiapine FUMARATE 100 MG TAB PO ×3 (09:00→20:56)
[2017-09-10] MEDS: LISINOPRIL 5 MG TAB PO ×2 (10:00→13:20)
[2017-09-10] MEDS: AMIODARONE 200 MG TAB (PACERONE) PO ×2 (10:00→13:51)
[2017-09-10] MEDS ORDERED: ISOSORBIDE MON. (ISMO,MONOKET) 20 MG TAB PO (10:00)
[2017-09-10] MEDS: SPIRONOLACTONE 25 MG TAB PO (10:14)
[2017-09-10] MEDS: DOCUSATE SODIUM 100 MG CAP PO (10:14)
[2017-09-10] MEDS: ASPIRIN 81 MG CHEW TABLET PO (10:14)
[2017-09-10] MEDS: CARVedilol 6.25 MG TAB PO ×2 (10:14→20:55)
[2017-09-10] MEDS: FUROSEMIDE 20 MG TAB PO (10:14)
[2017-09-10] MEDS: ISOSORBIDE MON. (IMDUR) 30 MG XR TAB PO ×2 (10:15→13:57)
[2017-09-10] MEDS: DIVALPROEX 500MG *ER* TAB PO (13:00)
[2017-09-10] MEDS: SIMVASTATIN 20 MG TAB PO (13:19)
[2017-09-10] MEDS: APIXABAN 5 MG TAB (ELIQUIS) PO ×2 (13:51→20:56)
[2017-09-10 17:57] LABS: BEDSIDE GLUCOSE 110 MG/DL (83-110)
[2017-09-11 06:46] LABS: BEDSIDE GLUCOSE 116 MG/DL (83-110)
[2017-09-11 09:07] LABS: HEMATOCRIT 38.4 % (42.0-52.0); HEMOGLOBIN 12.8 g/dl (14.0-18.0); MEAN CORPUSCULAR HEMOGLOBIN 32.3 pg (27.0-33.0); MEAN CORPUSCULAR HGB CONC 33.3 g/dl (32.0-36.5); PLATELET COUNT, AUTOMATED 157 10^3/uL (150-450); RED BLOOD COUNT 3.96 10^6/uL (4.30-6.10); RED CELL DISTRIBUTION WIDTH 12.5 % (11.5-14.5); WHITE BLOOD COUNT 6.7 10^3/uL (4.0-10.0)
[2017-09-11 09:27] LABS: ALBUMIN 3.3 GM/DL (3.2-5.2); ALBUMIN/GLOBULIN RATIO 1.14 (1.00-1.93); ALKALINE PHOSPHATASE 78 U/L (45-117); ALT/SGPT 16 U/L (12-78); ANION GAP 5 MEQ/L (8-16); AST/SGOT 17 U/L (7-37); BILIRUBIN,TOTAL 0.5 MG/DL (0.2-1.0); BLOOD UREA NITROGEN 18 MG/DL (7-18); CALCIUM LEVEL 8.8 MG/DL (8.8-10.2); CARBON DIOXIDE LEVEL 31 MEQ/L (21-32); CHLORIDE LEVEL 106 MEQ/L (98-107); CREATININE FOR GFR 0.81 MG/DL (0.70-1.30); GLOMERULAR FILTRATION RATE > 60.0 (>42); GLUCOSE, FASTING 131 MG/DL (83-110); POTASSIUM SERUM 3.9 MEQ/L (3.5-5.1); SODIUM LEVEL 142 MEQ/L (136-145); TOTAL PROTEIN 6.2 GM/DL (6.4-8.2)
[2017-09-11] MEDS: QUEtiapine FUMARATE 100 MG TAB PO ×3 (10:54→21:41)
[2017-09-11] MEDS: DOCUSATE SODIUM 100 MG CAP PO (10:54)
[2017-09-11] MEDS: SIMVASTATIN 20 MG TAB PO (10:54)
[2017-09-11] MEDS: FUROSEMIDE 20 MG TAB PO (10:54)
[2017-09-11] MEDS: NICOTINE 21MG/24HR 1 EA TRANSDERMAL TD (10:54)
[2017-09-11] MEDS: LISINOPRIL 5 MG TAB PO (10:55)
[2017-09-11] MEDS: ASPIRIN 81 MG ENTERIC TAB PO (10:55)
[2017-09-11] MEDS: SPIRONOLACTONE 25 MG TAB PO (10:55)
[2017-09-11] MEDS: ISOSORBIDE MON. (IMDUR) 30 MG XR TAB PO (10:55)
[2017-09-11] MEDS: APIXABAN 5 MG TAB (ELIQUIS) PO ×2 (10:56→21:41)
[2017-09-11] MEDS: CARVedilol 6.25 MG TAB PO ×2 (10:56→21:42)
[2017-09-11] MEDS: AMIODARONE 200 MG TAB (PACERONE) PO (10:56)
[2017-09-11 11:33] LABS: ESTIMATED AVERAGE GLUCOSE 117 MG/DL (60-110); HEMOGLOBIN A1c 5.7 %
[2017-09-11] MEDS: ACETAMINOPHEN TAB 650MG DOSE (2X325MG) PO (18:23)
[2017-09-11] MEDS: MAALOX 30 ML SUSP *UDC PO (20:30)
[2017-09-12] MEDS: DOCUSATE SODIUM 100 MG CAP PO (09:45)
[2017-09-12] MEDS: APIXABAN 5 MG TAB (ELIQUIS) PO ×2 (09:45→21:17)
[2017-09-12] MEDS: SIMVASTATIN 20 MG TAB PO (09:46)
[2017-09-12] MEDS: QUEtiapine FUMARATE 100 MG TAB PO (09:46)
[2017-09-12] MEDS: FUROSEMIDE 20 MG TAB PO (09:46)
[2017-09-12] MEDS: ASPIRIN 81 MG ENTERIC TAB PO (09:46)
[2017-09-12] MEDS: SPIRONOLACTONE 25 MG TAB PO (09:46)
[2017-09-12] MEDS: ISOSORBIDE MON. (IMDUR) 30 MG XR TAB PO (10:52)
[2017-09-12] MEDS: LISINOPRIL *2.5 MG* TAB PO (10:53)
[2017-09-12] MEDS: CARVedilol 6.25 MG TAB PO ×2 (10:53→21:18)
[2017-09-12] MEDS: NICOTINE 21MG/24HR 1 EA TRANSDERMAL TD (10:55)
[2017-09-12] MEDS: AMIODARONE 200 MG TAB (PACERONE) PO (12:20)
[2017-09-12] MEDS: QUEtiapine FUMARATE 50 MG TAB PO ×2 (16:12→21:18)
[2017-09-12 17:03] LABS: BEDSIDE GLUCOSE 161 MG/DL (83-110)
[2017-09-12] MEDS: traZODone 50 MG TAB PO (21:18)
[2017-09-13 06:38] LABS: BEDSIDE GLUCOSE 120 MG/DL (83-110)
[2017-09-13 07:30] LABS: HEMATOCRIT 37.4 % (42.0-52.0); HEMOGLOBIN 12.7 g/dl (14.0-18.0); MEAN CORPUSCULAR HEMOGLOBIN 32.6 pg (27.0-33.0); MEAN CORPUSCULAR VOLUME 95.9 fl (80.0-96.0); PLATELET COUNT, AUTOMATED 123 10^3/uL (150-450); RED CELL DISTRIBUTION WIDTH 12.4 % (11.5-14.5); WHITE BLOOD COUNT 6.9 10^3/uL (4.0-10.0)
[2017-09-13 07:54] LABS: FERRITIN 193 NG/ML (26-388); IRON (FE) 40 UG/DL (65-175); PERCENT SATURATION 14.3 % (19.7-50.0); TOTAL IRON BINDING CAPACITY 280 UG/DL (250-450)
[2017-09-13] MEDS: FUROSEMIDE 20 MG TAB PO (08:55)
[2017-09-13] MEDS: QUEtiapine FUMARATE 50 MG TAB PO ×3 (08:55→20:38)
[2017-09-13] MEDS: DOCUSATE SODIUM 100 MG CAP PO (08:55)
[2017-09-13] MEDS: SIMVASTATIN 20 MG TAB PO (08:55)
[2017-09-13] MEDS: CARVedilol 6.25 MG TAB PO ×2 (08:55→20:37)
[2017-09-13] MEDS: ASPIRIN 81 MG ENTERIC TAB PO (08:55)
[2017-09-13] MEDS: ISOSORBIDE MON. (IMDUR) 30 MG XR TAB PO (08:55)
[2017-09-13] MEDS: AMIODARONE 200 MG TAB (PACERONE) PO (08:56)
[2017-09-13] MEDS: APIXABAN 5 MG TAB (ELIQUIS) PO ×2 (08:56→20:36)
[2017-09-13] MEDS: LISINOPRIL *2.5 MG* TAB PO (08:56)
[2017-09-13] MEDS: SPIRONOLACTONE 25 MG TAB PO (08:56)
[2017-09-13] MEDS: NICOTINE 21MG/24HR 1 EA TRANSDERMAL TD (08:56)
[2017-09-13 09:46] LABS: VITAMIN B12 LEVEL 416 PG/ML (247-911)
[2017-09-13 09:47] LABS: FOLATE 9.1 NG/ML (>5.4)
[2017-09-13 16:15] LABS: BEDSIDE GLUCOSE 119 MG/DL (83-110)
[2017-09-13] MEDS: traZODone 50 MG TAB PO (20:38)
[2017-09-14 06:19] LABS: BEDSIDE GLUCOSE 81 MG/DL (83-110)
[2017-09-14] MEDS: QUEtiapine FUMARATE 50 MG TAB PO ×2 (09:06→10:11)
[2017-09-14] MEDS: LISINOPRIL *2.5 MG* TAB PO (09:07)
[2017-09-14] MEDS: AMIODARONE 200 MG TAB (PACERONE) PO (09:07)
[2017-09-14] MEDS: CARVedilol 6.25 MG TAB PO ×2 (09:07→21:07)
[2017-09-14] MEDS: ASPIRIN 81 MG ENTERIC TAB PO (09:07)
[2017-09-14] MEDS: DOCUSATE SODIUM 100 MG CAP PO (09:07)
[2017-09-14] MEDS: ISOSORBIDE MON. (IMDUR) 30 MG XR TAB PO (09:07)
[2017-09-14] MEDS: SIMVASTATIN 20 MG TAB PO (09:08)
[2017-09-14] MEDS: NICOTINE 21MG/24HR 1 EA TRANSDERMAL TD (09:08)
[2017-09-14] MEDS: FUROSEMIDE 20 MG TAB PO (09:08)
[2017-09-14] MEDS: APIXABAN 5 MG TAB (ELIQUIS) PO ×2 (09:08→21:07)
[2017-09-14] MEDS: SPIRONOLACTONE 25 MG TAB PO (09:08)
[2017-09-14] MEDS: LORazepam 2 MG TAB PO (11:57)
[2017-09-14 13:04] LABS: HEMOGLOBIN 12.4 g/dl (14.0-18.0); MEAN CORPUSCULAR HEMOGLOBIN 31.6 pg (27.0-33.0); MEAN CORPUSCULAR HGB CONC 33.5 g/dl (32.0-36.5); MEAN CORPUSCULAR VOLUME 94.4 fl (80.0-96.0); PLATELET COUNT, AUTOMATED 147 10^3/uL (150-450); RED BLOOD COUNT 3.92 10^6/uL (4.30-6.10); RED CELL DISTRIBUTION WIDTH 12.4 % (11.5-14.5); WHITE BLOOD COUNT 6.2 10^3/uL (4.0-10.0)
[2017-09-14 13:42] LABS: ALBUMIN 3.7 GM/DL (3.2-5.2); ALBUMIN/GLOBULIN RATIO 1.23 (1.00-1.93); ALKALINE PHOSPHATASE 81 U/L (45-117); ALT/SGPT 20 U/L (12-78); ANION GAP 5 MEQ/L (8-16); AST/SGOT 17 U/L (7-37); BILIRUBIN,TOTAL 0.5 MG/DL (0.2-1.0); BLOOD UREA NITROGEN 20 MG/DL (7-18); CALCIUM LEVEL 9.4 MG/DL (8.8-10.2); CARBON DIOXIDE LEVEL 33 MEQ/L (21-32); CHLORIDE LEVEL 102 MEQ/L (98-107); CREATININE FOR GFR 0.89 MG/DL (0.70-1.30); GLOMERULAR FILTRATION RATE > 60.0 (>42); GLUCOSE, FASTING 111 MG/DL (83-110); MAGNESIUM LEVEL 2.2 MG/DL (1.8-2.4); POTASSIUM SERUM 4.4 MEQ/L (3.5-5.1); SODIUM LEVEL 140 MEQ/L (136-145); TOTAL PROTEIN 6.7 GM/DL (6.4-8.2)
[2017-09-14] MEDS: QUEtiapine FUMARATE 100 MG TAB PO ×2 (15:00→21:06)
[2017-09-14] MEDS ORDERED: LORazepam 2 MG TAB PO ×2 (15:30→15:40)
[2017-09-15 06:28] LABS: BEDSIDE GLUCOSE 94 MG/DL (83-110)
[2017-09-15] MEDS: SPIRONOLACTONE 25 MG TAB PO (09:00)
[2017-09-15] MEDS: LISINOPRIL *2.5 MG* TAB PO (09:00)
[2017-09-15] MEDS: ISOSORBIDE MON. (IMDUR) 30 MG XR TAB PO (09:00)
[2017-09-15] MEDS: NICOTINE 21MG/24HR 1 EA TRANSDERMAL TD (10:41)
[2017-09-15] MEDS: DOCUSATE SODIUM 100 MG CAP PO (10:42)
[2017-09-15] MEDS: SIMVASTATIN 20 MG TAB PO (10:43)
[2017-09-15] MEDS: APIXABAN 5 MG TAB (ELIQUIS) PO ×2 (10:43→20:29)
[2017-09-15] MEDS: ASPIRIN 81 MG ENTERIC TAB PO (10:43)
[2017-09-15] MEDS: QUEtiapine FUMARATE 100 MG TAB PO ×3 (10:43→20:29)
[2017-09-15] MEDS: FUROSEMIDE 20 MG TAB PO (10:44)
[2017-09-15] MEDS: AMIODARONE 200 MG TAB (PACERONE) PO (13:05)
[2017-09-15] MEDS: CARVedilol 6.25 MG TAB PO ×2 (13:06→20:29)
[2017-09-15] MEDS: ACETAMINOPHEN TAB 650MG DOSE (2X325MG) PO (13:12)
[2017-09-16 06:41] LABS: BEDSIDE GLUCOSE 105 MG/DL (83-110)
[2017-09-16] MEDS: ISOSORBIDE MON. (IMDUR) 30 MG XR TAB PO (09:00)
[2017-09-16] MEDS: CARVedilol 6.25 MG TAB PO ×2 (09:00→21:02)
[2017-09-16] MEDS: LISINOPRIL *2.5 MG* TAB PO (09:00)
[2017-09-16] MEDS: SPIRONOLACTONE 25 MG TAB PO (09:00)
[2017-09-16] MEDS: QUEtiapine FUMARATE 100 MG TAB PO ×4 (10:30→21:02)
[2017-09-16] MEDS: SIMVASTATIN 20 MG TAB PO (10:30)
[2017-09-16] MEDS: ASPIRIN 81 MG ENTERIC TAB PO (10:30)
[2017-09-16] MEDS: DOCUSATE SODIUM 100 MG CAP PO (10:30)
[2017-09-16] MEDS: FUROSEMIDE 20 MG TAB PO (10:31)
[2017-09-16] MEDS: AMIODARONE 200 MG TAB (PACERONE) PO (10:31)
[2017-09-16] MEDS: APIXABAN 5 MG TAB (ELIQUIS) PO ×2 (10:31→21:02)
[2017-09-16] MEDS: NICOTINE 21MG/24HR 1 EA TRANSDERMAL TD (10:32)
[2017-09-16] MEDS: traZODone 50 MG TAB PO (21:02)
[2017-09-17] MEDS: ACETAMINOPHEN TAB 650MG DOSE (2X325MG) PO (04:03)
[2017-09-17 06:49] LABS: BEDSIDE GLUCOSE 111 MG/DL (83-110)
[2017-09-17] MEDS: SPIRONOLACTONE 25 MG TAB PO (08:25)
[2017-09-17] MEDS: CARVedilol 6.25 MG TAB PO ×2 (08:26→21:31)
[2017-09-17] MEDS: LISINOPRIL *2.5 MG* TAB PO (08:26)
[2017-09-17] MEDS: ISOSORBIDE MON. (IMDUR) 30 MG XR TAB PO (08:26)
[2017-09-17] MEDS: FUROSEMIDE 20 MG TAB PO (08:29)
[2017-09-17] MEDS: DOCUSATE SODIUM 100 MG CAP PO (08:29)
[2017-09-17] MEDS: ASPIRIN 81 MG ENTERIC TAB PO (08:29)
[2017-09-17] MEDS: SIMVASTATIN 20 MG TAB PO (08:30)
[2017-09-17] MEDS: AMIODARONE 200 MG TAB (PACERONE) PO (08:30)
[2017-09-17] MEDS: QUEtiapine FUMARATE 100 MG TAB PO (08:30)
[2017-09-17] MEDS: NICOTINE 21MG/24HR 1 EA TRANSDERMAL TD (08:31)
[2017-09-17] MEDS: LORazepam 2 MG TAB PO (13:18)
[2017-09-17] MEDS: QUEtiapine FUMARATE 50 MG TAB PO ×2 (16:00→21:00)
[2017-09-17 16:47] LABS: BEDSIDE GLUCOSE 97 MG/DL (83-110)
[2017-09-17] MEDS: APIXABAN 5 MG TAB (ELIQUIS) PO (21:28)
[2017-09-17] MEDS: DIVALPROEX 250 MG TAB PO (21:29)
[2017-09-18 07:25] LABS: HEMATOCRIT 37.9 % (42.0-52.0); HEMOGLOBIN 12.9 g/dl (14.0-18.0); MEAN CORPUSCULAR HEMOGLOBIN 32.6 pg (27.0-33.0); MEAN CORPUSCULAR VOLUME 95.7 fl (80.0-96.0); PLATELET COUNT, AUTOMATED 158 10^3/uL (150-450); RED BLOOD COUNT 3.96 10^6/uL (4.30-6.10); RED CELL DISTRIBUTION WIDTH 12.2 % (11.5-14.5); WHITE BLOOD COUNT 6.6 10^3/uL (4.0-10.0)
[2017-09-18 08:11] LABS: ALBUMIN 3.6 GM/DL (3.2-5.2); ALBUMIN/GLOBULIN RATIO 1.16 (1.00-1.93); ALKALINE PHOSPHATASE 84 U/L (45-117); ALT/SGPT 19 U/L (12-78); ANION GAP 7 MEQ/L (8-16); AST/SGOT 16 U/L (7-37); BILIRUBIN,TOTAL 0.7 MG/DL (0.2-1.0); BLOOD UREA NITROGEN 22 MG/DL (7-18); CALCIUM LEVEL 8.9 MG/DL (8.8-10.2); CARBON DIOXIDE LEVEL 29 MEQ/L (21-32); CHLORIDE LEVEL 106 MEQ/L (98-107); CREATININE FOR GFR 0.95 MG/DL (0.70-1.30); GLOMERULAR FILTRATION RATE > 60.0 (>42); GLUCOSE, FASTING 142 MG/DL (70-100); POTASSIUM SERUM 4.5 MEQ/L (3.5-5.1); SODIUM LEVEL 142 MEQ/L (136-145); TOTAL PROTEIN 6.7 GM/DL (6.4-8.2)
[2017-09-18] MEDS: DOCUSATE SODIUM 100 MG CAP PO (08:24)
[2017-09-18] MEDS: SPIRONOLACTONE 25 MG TAB PO (08:25)
[2017-09-18] MEDS: DIVALPROEX 250 MG TAB PO ×2 (08:25→22:13)
[2017-09-18] MEDS: FUROSEMIDE 20 MG TAB PO (08:25)
[2017-09-18] MEDS: QUEtiapine FUMARATE 50 MG TAB PO ×3 (08:25→22:12)
[2017-09-18] MEDS: CARVedilol 6.25 MG TAB PO ×2 (08:25→22:13)
[2017-09-18] MEDS: ISOSORBIDE MON. (IMDUR) 30 MG XR TAB PO (08:26)
[2017-09-18] MEDS: SIMVASTATIN 20 MG TAB PO (08:26)
[2017-09-18] MEDS: AMIODARONE 200 MG TAB (PACERONE) PO (08:26)
[2017-09-18] MEDS: APIXABAN 5 MG TAB (ELIQUIS) PO ×2 (08:26→22:13)
[2017-09-18] MEDS: LISINOPRIL *2.5 MG* TAB PO (08:26)
[2017-09-18] MEDS: ASPIRIN 81 MG ENTERIC TAB PO (08:26)
[2017-09-18] MEDS: NICOTINE 21MG/24HR 1 EA TRANSDERMAL TD (08:27)
[2017-09-18 13:23] LABS: BEDSIDE GLUCOSE 106 MG/DL (83-110)
[2017-09-18 16:49] LABS: BEDSIDE GLUCOSE 94 MG/DL (83-110)
[2017-09-19] MEDS: NICOTINE 21MG/24HR 1 EA TRANSDERMAL TD (09:25)
[2017-09-19] MEDS: SIMVASTATIN 20 MG TAB PO (09:26)
[2017-09-19] MEDS: FUROSEMIDE 20 MG TAB PO (09:26)
[2017-09-19] MEDS: QUEtiapine FUMARATE 50 MG TAB PO ×3 (09:26→21:00)
[2017-09-19] MEDS: DOCUSATE SODIUM 100 MG CAP PO (09:26)
[2017-09-19] MEDS: ASPIRIN 81 MG ENTERIC TAB PO (09:26)
[2017-09-19] MEDS: DIVALPROEX 250 MG TAB PO ×2 (09:26→21:08)
[2017-09-19] MEDS: ISOSORBIDE MON. (IMDUR) 30 MG XR TAB PO (09:27)
[2017-09-19] MEDS: CARVedilol 6.25 MG TAB PO ×2 (09:27→21:00)
[2017-09-19] MEDS: LISINOPRIL *2.5 MG* TAB PO (09:27)
[2017-09-19] MEDS: SPIRONOLACTONE 25 MG TAB PO (09:27)
[2017-09-19] MEDS: AMIODARONE 200 MG TAB (PACERONE) PO (09:27)
[2017-09-19] MEDS: APIXABAN 5 MG TAB (ELIQUIS) PO ×2 (09:27→21:08)
[2017-09-19 17:05] LABS: BEDSIDE GLUCOSE 123 MG/DL (83-110)
[2017-09-20] MEDS: SPIRONOLACTONE 25 MG TAB PO (09:00)
[2017-09-20] MEDS: ISOSORBIDE MON. (IMDUR) 30 MG XR TAB PO (09:00)
[2017-09-20] MEDS: NICOTINE 21MG/24HR 1 EA TRANSDERMAL TD (09:00)
[2017-09-20] MEDS: LISINOPRIL *2.5 MG* TAB PO (09:00)
[2017-09-20] MEDS: CARVedilol 6.25 MG TAB PO ×2 (09:00→20:25)
[2017-09-20] MEDS: SIMVASTATIN 20 MG TAB PO (10:35)
[2017-09-20] MEDS: QUEtiapine FUMARATE 50 MG TAB PO ×3 (10:35→20:24)
[2017-09-20] MEDS: FUROSEMIDE 20 MG TAB PO (10:35)
[2017-09-20] MEDS: DOCUSATE SODIUM 100 MG CAP PO (10:35)
[2017-09-20] MEDS: DIVALPROEX 250 MG TAB PO ×2 (10:35→20:23)
[2017-09-20] MEDS: APIXABAN 5 MG TAB (ELIQUIS) PO ×2 (10:36→20:23)
[2017-09-20] MEDS: ASPIRIN 81 MG ENTERIC TAB PO (10:36)
[2017-09-20] MEDS: AMIODARONE 200 MG TAB (PACERONE) PO (10:37)
[2017-09-20] MEDS: DONEPEZIL 5 MG TAB PO (20:23)
[2017-09-20] MEDS: traZODone 50 MG TAB PO (20:24)
[2017-09-21 06:21] LABS: BEDSIDE GLUCOSE 78 MG/DL (83-110)
[2017-09-21] MEDS: QUEtiapine FUMARATE 50 MG TAB PO ×3 (08:51→22:31)
[2017-09-21] MEDS: SIMVASTATIN 20 MG TAB PO (08:51)
[2017-09-21] MEDS: DIVALPROEX 250 MG TAB PO ×2 (08:52→22:31)
[2017-09-21] MEDS: FUROSEMIDE 20 MG TAB PO (08:52)
[2017-09-21] MEDS: ISOSORBIDE MON. (IMDUR) 30 MG XR TAB PO (08:52)
[2017-09-21] MEDS: ASPIRIN 81 MG ENTERIC TAB PO (08:52)
[2017-09-21] MEDS: SPIRONOLACTONE 25 MG TAB PO (08:52)
[2017-09-21] MEDS: NICOTINE 21MG/24HR 1 EA TRANSDERMAL TD (08:52)
[2017-09-21] MEDS: APIXABAN 5 MG TAB (ELIQUIS) PO ×2 (08:52→22:31)
[2017-09-21] MEDS: AMIODARONE 200 MG TAB (PACERONE) PO (08:52)
[2017-09-21] MEDS: DOCUSATE SODIUM 100 MG CAP PO (08:52)
[2017-09-21] MEDS: LISINOPRIL *2.5 MG* TAB PO (08:53)
[2017-09-21] MEDS: CARVedilol 6.25 MG TAB PO ×2 (08:53→22:31)
[2017-09-21 17:06] LABS: BEDSIDE GLUCOSE 77 MG/DL (83-110)
[2017-09-21] MEDS: DONEPEZIL 5 MG TAB PO (22:31)
[2017-09-22] MEDS: FUROSEMIDE 20 MG TAB PO (09:00)
[2017-09-22] MEDS: ISOSORBIDE MON. (IMDUR) 30 MG XR TAB PO (09:00)
[2017-09-22] MEDS: LISINOPRIL *2.5 MG* TAB PO (09:00)
[2017-09-22] MEDS: CARVedilol 6.25 MG TAB PO ×2 (09:00→19:59)
[2017-09-22] MEDS: SPIRONOLACTONE 25 MG TAB PO (09:00)
[2017-09-22] MEDS: DIVALPROEX 250 MG TAB PO ×2 (09:24→19:52)
[2017-09-22] MEDS: DOCUSATE SODIUM 100 MG CAP PO (09:24)
[2017-09-22] MEDS: ASPIRIN 81 MG ENTERIC TAB PO (09:25)
[2017-09-22] MEDS: SIMVASTATIN 20 MG TAB PO (09:25)
[2017-09-22] MEDS: QUEtiapine FUMARATE 50 MG TAB PO ×3 (09:26→19:52)
[2017-09-22] MEDS: APIXABAN 5 MG TAB (ELIQUIS) PO ×2 (09:26→19:52)
[2017-09-22] MEDS: NICOTINE 21MG/24HR 1 EA TRANSDERMAL TD (09:26)
[2017-09-22] MEDS: AMIODARONE 200 MG TAB (PACERONE) PO (09:35)
[2017-09-22 13:51] LABS: ALBUMIN 3.9 GM/DL (3.2-5.2); ALBUMIN/GLOBULIN RATIO 1.22 (1.00-1.93); ALKALINE PHOSPHATASE 81 U/L (45-117); ALT/SGPT 18 U/L (12-78); ANION GAP 5 MEQ/L (8-16); AST/SGOT 14 U/L (7-37); BLOOD UREA NITROGEN 37 MG/DL (7-18); CALCIUM LEVEL 8.9 MG/DL (8.8-10.2); CARBON DIOXIDE LEVEL 32 MEQ/L (21-32); CHLORIDE LEVEL 100 MEQ/L (98-107); CREATININE FOR GFR 1.35 MG/DL (0.70-1.30); GLOMERULAR FILTRATION RATE 54.7 (>42); GLUCOSE, FASTING 83 MG/DL (70-100); POTASSIUM SERUM 5.1 MEQ/L (3.5-5.1); SODIUM LEVEL 137 MEQ/L (136-145); TOTAL PROTEIN 7.1 GM/DL (6.4-8.2)
[2017-09-22] MEDS: traZODone 50 MG TAB PO (19:52)
[2017-09-22] MEDS: DONEPEZIL 5 MG TAB PO (19:54)
[2017-09-23] MEDS: CARVedilol 6.25 MG TAB PO ×2 (08:35→20:47)
[2017-09-23] MEDS: ISOSORBIDE MON. (IMDUR) 30 MG XR TAB PO (08:36)
[2017-09-23] MEDS: APIXABAN 5 MG TAB (ELIQUIS) PO ×2 (08:36→20:46)
[2017-09-23] MEDS: AMIODARONE 200 MG TAB (PACERONE) PO (08:36)
[2017-09-23] MEDS: QUEtiapine FUMARATE 50 MG TAB PO ×3 (08:38→20:41)
[2017-09-23] MEDS: SIMVASTATIN 20 MG TAB PO (08:38)
[2017-09-23] MEDS: ASPIRIN 81 MG ENTERIC TAB PO (08:38)
[2017-09-23] MEDS: DIVALPROEX 250 MG TAB PO ×2 (08:39→20:47)
[2017-09-23] MEDS: NICOTINE 21MG/24HR 1 EA TRANSDERMAL TD (08:39)
[2017-09-23] MEDS: DOCUSATE SODIUM 100 MG CAP PO (08:39)
[2017-09-23] MEDS: SPIRONOLACTONE 25 MG TAB PO (08:40)
[2017-09-23] MEDS: FUROSEMIDE 20 MG TAB PO (08:40)
[2017-09-23] MEDS: LISINOPRIL *2.5 MG* TAB PO (08:40)
[2017-09-23 17:01] LABS: BEDSIDE GLUCOSE 106 MG/DL (83-110)
[2017-09-23] MEDS: DONEPEZIL 5 MG TAB PO (20:47)
[2017-09-24 06:18] LABS: BEDSIDE GLUCOSE 109 MG/DL (83-110)
[2017-09-24] MEDS: FUROSEMIDE 20 MG TAB PO (09:00)
[2017-09-24] MEDS: ISOSORBIDE MON. (IMDUR) 30 MG XR TAB PO (09:00)
[2017-09-24] MEDS: SPIRONOLACTONE 25 MG TAB PO (09:00)
[2017-09-24] MEDS: DOCUSATE SODIUM 100 MG CAP PO (09:12)
[2017-09-24] MEDS: CARVedilol 6.25 MG TAB PO ×2 (09:12→20:42)
[2017-09-24] MEDS: ASPIRIN 81 MG ENTERIC TAB PO (09:13)
[2017-09-24] MEDS: APIXABAN 5 MG TAB (ELIQUIS) PO (09:13)
[2017-09-24] MEDS: DIVALPROEX 250 MG TAB PO ×2 (09:13→15:51)
[2017-09-24] MEDS: QUEtiapine FUMARATE 50 MG TAB PO ×2 (09:14→15:51)
[2017-09-24] MEDS: LISINOPRIL *2.5 MG* TAB PO (09:14)
[2017-09-24] MEDS: AMIODARONE 200 MG TAB (PACERONE) PO (09:14)
[2017-09-24] MEDS: SIMVASTATIN 20 MG TAB PO (09:14)
[2017-09-24] MEDS: NICOTINE 21MG/24HR 1 EA TRANSDERMAL TD (09:15)
[2017-09-24 17:34] LABS: BEDSIDE GLUCOSE 155 MG/DL (83-110)
[2017-09-24] MEDS: traZODone 50 MG TAB PO (20:42)
[2017-09-24] MEDS: DONEPEZIL 5 MG TAB PO (20:42)
[2017-09-25 06:32] LABS: BEDSIDE GLUCOSE 88 MG/DL (83-110)
[2017-09-25 07:16] LABS: HEMATOCRIT 40.1 % (42.0-52.0); HEMOGLOBIN 13.4 g/dl (14.0-18.0); MEAN CORPUSCULAR HEMOGLOBIN 31.5 pg (27.0-33.0); MEAN CORPUSCULAR HGB CONC 33.4 g/dl (32.0-36.5); MEAN CORPUSCULAR VOLUME 94.4 fl (80.0-96.0); PLATELET COUNT, AUTOMATED 161 10^3/uL (150-450); RED BLOOD COUNT 4.25 10^6/uL (4.30-6.10); RED CELL DISTRIBUTION WIDTH 12.3 % (11.5-14.5); WHITE BLOOD COUNT 6.3 10^3/uL (4.0-10.0)
[2017-09-25 07:40] LABS: ALBUMIN 3.7 GM/DL (3.2-5.2); ALBUMIN/GLOBULIN RATIO 1.23 (1.00-1.93); ALKALINE PHOSPHATASE 75 U/L (45-117); ALT/SGPT 15 U/L (12-78); ANION GAP 6 MEQ/L (8-16); AST/SGOT 12 U/L (7-37); BILIRUBIN,TOTAL 0.8 MG/DL (0.2-1.0); BLOOD UREA NITROGEN 24 MG/DL (7-18); CALCIUM LEVEL 8.9 MG/DL (8.8-10.2); CARBON DIOXIDE LEVEL 30 MEQ/L (21-32); CHLORIDE LEVEL 106 MEQ/L (98-107); CREATININE FOR GFR 0.93 MG/DL (0.70-1.30); GLOMERULAR FILTRATION RATE > 60.0 (>42); GLUCOSE, FASTING 83 MG/DL (70-100); POTASSIUM SERUM 4.4 MEQ/L (3.5-5.1); SODIUM LEVEL 142 MEQ/L (136-145); TOTAL PROTEIN 6.7 GM/DL (6.4-8.2); VALPROIC ACID (DEPAKOTE) 46.5 UG/ML (50.0-100.0)
[2017-09-25] MEDS: CARVedilol 6.25 MG TAB PO ×2 (09:24→20:39)
[2017-09-25] MEDS: ASPIRIN 81 MG ENTERIC TAB PO (09:24)
[2017-09-25] MEDS: SIMVASTATIN 20 MG TAB PO (09:24)
[2017-09-25] MEDS: DOCUSATE SODIUM 100 MG CAP PO (09:24)
[2017-09-25] MEDS: AMIODARONE 200 MG TAB (PACERONE) PO (09:24)
[2017-09-25] MEDS: NICOTINE 21MG/24HR 1 EA TRANSDERMAL TD (09:25)
[2017-09-25] MEDS: ISOSORBIDE MON. (IMDUR) 30 MG XR TAB PO (09:26)
[2017-09-25] MEDS: FUROSEMIDE 20 MG TAB PO (09:27)
[2017-09-25] MEDS: SPIRONOLACTONE 25 MG TAB PO (09:27)
[2017-09-25] MEDS: DIVALPROEX 250 MG TAB PO ×3 (10:55→20:42)
[2017-09-25 11:08] LABS: TROPONIN I < 0.02 NG/ML (< 0.10)
[2017-09-25 11:11] LABS: CK-MB VALUE MASS 1.1 NG/ML (0.0-3.6); CPK CREATINE PHOSPHOKINASE 34 U/L (39-308); MB/CK RELATIVE INDEX 3.23 (< OR =4)
[2017-09-25] MEDS: APIXABAN 5 MG TAB (ELIQUIS) PO ×2 (15:14→20:41)
[2017-09-25 18:20] LABS: BEDSIDE GLUCOSE 129 MG/DL (83-110)
[2017-09-25] MEDS: DONEPEZIL 5 MG TAB PO (20:41)
[2017-09-25] MEDS: traZODone 50 MG TAB PO (20:42)
[2017-09-26 06:29] LABS: BEDSIDE GLUCOSE 107 MG/DL (83-110)
[2017-09-26 07:18] LABS: HEMATOCRIT 38.9 % (42.0-52.0); HEMOGLOBIN 12.8 g/dl (14.0-18.0); MEAN CORPUSCULAR HEMOGLOBIN 31.4 pg (27.0-33.0); MEAN CORPUSCULAR HGB CONC 32.9 g/dl (32.0-36.5); MEAN CORPUSCULAR VOLUME 95.6 fl (80.0-96.0); PLATELET COUNT, AUTOMATED 149 10^3/uL (150-450); RED BLOOD COUNT 4.07 10^6/uL (4.30-6.10); RED CELL DISTRIBUTION WIDTH 12.3 % (11.5-14.5); WHITE BLOOD COUNT 8.6 10^3/uL (4.0-10.0)
[2017-09-26 07:39] LABS: ALBUMIN 3.2 GM/DL (3.2-5.2); ALBUMIN/GLOBULIN RATIO 0.89 (1.00-1.93); ALKALINE PHOSPHATASE 80 U/L (45-117); ALT/SGPT 17 U/L (12-78); ANION GAP 5 MEQ/L (8-16); AST/SGOT 15 U/L (7-37); BILIRUBIN,TOTAL 0.8 MG/DL (0.2-1.0); BLOOD UREA NITROGEN 22 MG/DL (7-18); CALCIUM LEVEL 8.8 MG/DL (8.8-10.2); CARBON DIOXIDE LEVEL 27 MEQ/L (21-32); CHLORIDE LEVEL 107 MEQ/L (98-107); CREATININE FOR GFR 0.86 MG/DL (0.70-1.30); GLOMERULAR FILTRATION RATE > 60.0 (>42); GLUCOSE, FASTING 78 MG/DL (70-100); POTASSIUM SERUM 4.2 MEQ/L (3.5-5.1); SODIUM LEVEL 139 MEQ/L (136-145); TOTAL PROTEIN 6.8 GM/DL (6.4-8.2)
[2017-09-26] MEDS: DOCUSATE SODIUM 100 MG CAP PO (09:18)
[2017-09-26] MEDS: DIVALPROEX 250 MG TAB PO ×3 (09:18→20:56)
[2017-09-26] MEDS: FUROSEMIDE 20 MG TAB PO (09:18)
[2017-09-26] MEDS: SIMVASTATIN 20 MG TAB PO (09:18)
[2017-09-26] MEDS: APIXABAN 5 MG TAB (ELIQUIS) PO ×2 (09:20→20:56)
[2017-09-26] MEDS: ASPIRIN 81 MG ENTERIC TAB PO (09:20)
[2017-09-26] MEDS: CARVedilol 6.25 MG TAB PO ×2 (09:22→21:20)
[2017-09-26] MEDS: SPIRONOLACTONE 25 MG TAB PO (09:23)
[2017-09-26] MEDS: ISOSORBIDE MON. (IMDUR) 30 MG XR TAB PO (09:23)
[2017-09-26] MEDS: AMIODARONE 200 MG TAB (PACERONE) PO (09:27)
[2017-09-26] MEDS: NICOTINE 21MG/24HR 1 EA TRANSDERMAL TD (09:28)
[2017-09-26] MEDS: DONEPEZIL 5 MG TAB PO (20:56)
[2017-09-26] MEDS: traZODone 50 MG TAB PO (20:56)
[2017-09-27] MEDS: NICOTINE 21MG/24HR 1 EA TRANSDERMAL TD (09:00)
[2017-09-27] MEDS: DOCUSATE SODIUM 100 MG CAP PO ×2 (10:04→21:45)
[2017-09-27] MEDS: AMIODARONE 200 MG TAB (PACERONE) PO (10:05)
[2017-09-27] MEDS: ASPIRIN 81 MG ENTERIC TAB PO (10:05)
[2017-09-27] MEDS: FUROSEMIDE 20 MG TAB PO (10:05)
[2017-09-27] MEDS: SIMVASTATIN 20 MG TAB PO (10:05)
[2017-09-27] MEDS: DIVALPROEX 250 MG TAB PO ×3 (10:05→21:45)
[2017-09-27] MEDS: APIXABAN 5 MG TAB (ELIQUIS) PO ×2 (10:07→21:45)
[2017-09-27] MEDS: SPIRONOLACTONE 25 MG TAB PO (10:07)
[2017-09-27] MEDS: ISOSORBIDE MON. (IMDUR) 30 MG XR TAB PO (10:07)
[2017-09-27] MEDS: CARVedilol 6.25 MG TAB PO ×2 (10:07→21:45)
[2017-09-27] MEDS: MOM 30ML SUSPENSION UDC PO (15:45)
[2017-09-27] MEDS: DONEPEZIL 5 MG TAB PO (21:45)
[2017-09-27] MEDS: SODIUM CHLORIDE NASAL 0.65% SPRAY BTL (OCEAN) (21:47)
[2017-09-28 06:34] LABS: BEDSIDE GLUCOSE 94 MG/DL (83-110)
[2017-09-28] MEDS: SODIUM CHLORIDE NASAL 0.65% SPRAY BTL (OCEAN) ×2 (10:38→20:16)
[2017-09-28] MEDS: ACETAMINOPHEN TAB 650MG DOSE (2X325MG) PO (10:38)
[2017-09-28] MEDS: SPIRONOLACTONE 25 MG TAB PO (10:39)
[2017-09-28] MEDS: DIVALPROEX 250 MG TAB PO ×3 (10:39→20:13)
[2017-09-28] MEDS: FUROSEMIDE 20 MG TAB PO (10:39)
[2017-09-28] MEDS: MOM 30ML SUSPENSION UDC PO (10:39)
[2017-09-28] MEDS: AMIODARONE 200 MG TAB (PACERONE) PO (10:40)
[2017-09-28] MEDS: SIMVASTATIN 20 MG TAB PO (10:40)
[2017-09-28] MEDS: APIXABAN 5 MG TAB (ELIQUIS) PO ×2 (10:40→20:14)
[2017-09-28] MEDS: DOCUSATE SODIUM 100 MG CAP PO ×2 (10:40→20:13)
[2017-09-28] MEDS: NICOTINE 21MG/24HR 1 EA TRANSDERMAL TD (10:40)
[2017-09-28] MEDS: CARVedilol 6.25 MG TAB PO ×3 (10:41→20:56)
[2017-09-28] MEDS: ISOSORBIDE MON. (IMDUR) 30 MG XR TAB PO (10:41)
[2017-09-28] MEDS: DONEPEZIL 5 MG TAB PO (20:14)
[2017-09-29 05:53] LABS: BEDSIDE GLUCOSE 94 MG/DL (83-110)
[2017-09-29 07:18] LABS: BASO # 0.1 10^3/uL (0.0-0.2); BASO % 1.1 % (0.0-1.0); EOS # 0.5 10^3/uL (0.0-0.50); EOS % 7.4 % (0.0-3.0); HEMATOCRIT 36.3 % (42.0-52.0); HEMOGLOBIN 12.3 g/dl (14.0-18.0); IMMATURE GRANULOCYTE % 0.3 % (0-0); LYMPH # 1.5 10^3/uL (1.5-4.5); LYMPH % 22.1 % (24.0-44.0); MEAN CORPUSCULAR HEMOGLOBIN 31.9 pg (27.0-33.0); MEAN CORPUSCULAR HGB CONC 33.9 g/dl (32.0-36.5); MEAN CORPUSCULAR VOLUME 94.3 fl (80.0-96.0); MONO # 0.5 10^3/uL (0.0-0.8); MONO % 7.1 % (0.0-5.0); NEUTROPHILS # 4.1 10^3/uL (1.8-7.7); PLATELET COUNT, AUTOMATED 144 10^3/uL (150-450); RED BLOOD COUNT 3.85 10^6/uL (4.30-6.10); RED CELL DISTRIBUTION WIDTH 12.3 % (11.5-14.5); WHITE BLOOD COUNT 6.6 10^3/uL (4.0-10.0)
[2017-09-29] MEDS: FUROSEMIDE 20 MG TAB PO (09:26)
[2017-09-29] MEDS: DIVALPROEX 250 MG TAB PO ×3 (09:27→20:45)
[2017-09-29] MEDS: DOCUSATE SODIUM 100 MG CAP PO ×2 (09:27→20:45)
[2017-09-29] MEDS: ISOSORBIDE MON. (IMDUR) 30 MG XR TAB PO (09:27)
[2017-09-29] MEDS: SIMVASTATIN 20 MG TAB PO (09:27)
[2017-09-29] MEDS: CARVedilol 6.25 MG TAB PO ×2 (09:27→20:46)
[2017-09-29] MEDS: AMIODARONE 200 MG TAB (PACERONE) PO (09:27)
[2017-09-29] MEDS: SPIRONOLACTONE 25 MG TAB PO (09:27)
[2017-09-29] MEDS: APIXABAN 5 MG TAB (ELIQUIS) PO ×2 (09:27→20:45)
[2017-09-29] MEDS: SODIUM CHLORIDE NASAL 0.65% SPRAY BTL (OCEAN) ×2 (09:28→20:49)
[2017-09-29] MEDS: NICOTINE 21MG/24HR 1 EA TRANSDERMAL TD (09:28)
[2017-09-29 17:22] LABS: BEDSIDE GLUCOSE 57 MG/DL (83-110)
[2017-09-29] MEDS: DONEPEZIL 5 MG TAB PO (20:45)
[2017-09-30 06:26] LABS: BEDSIDE GLUCOSE 103 MG/DL (83-110)
[2017-09-30] MEDS: DOCUSATE SODIUM 100 MG CAP PO ×2 (09:12→22:46)
[2017-09-30] MEDS: AMIODARONE 200 MG TAB (PACERONE) PO (09:12)
[2017-09-30] MEDS: APIXABAN 5 MG TAB (ELIQUIS) PO ×2 (09:12→22:44)
[2017-09-30] MEDS: SPIRONOLACTONE 25 MG TAB PO (09:12)
[2017-09-30] MEDS: NICOTINE 21MG/24HR 1 EA TRANSDERMAL TD (09:12)
[2017-09-30] MEDS: SIMVASTATIN 20 MG TAB PO (09:12)
[2017-09-30] MEDS: DIVALPROEX 250 MG TAB PO ×3 (09:13→22:45)
[2017-09-30] MEDS: ISOSORBIDE MON. (IMDUR) 30 MG XR TAB PO (09:13)
[2017-09-30] MEDS: FUROSEMIDE 20 MG TAB PO (09:13)
[2017-09-30] MEDS: CARVedilol 6.25 MG TAB PO ×2 (09:13→22:45)
[2017-09-30] MEDS: SODIUM CHLORIDE NASAL 0.65% SPRAY BTL (OCEAN) ×2 (09:14→22:44)
[2017-09-30] MEDS: DONEPEZIL 5 MG TAB PO (22:45)
[2017-10-01] MEDS: SPIRONOLACTONE 25 MG TAB PO (08:15)
[2017-10-01] MEDS: CARVedilol 6.25 MG TAB PO ×2 (08:15→21:21)
[2017-10-01] MEDS: ISOSORBIDE MON. (IMDUR) 30 MG XR TAB PO (08:16)
[2017-10-01] MEDS: FUROSEMIDE 20 MG TAB PO (08:16)
[2017-10-01] MEDS: DOCUSATE SODIUM 100 MG CAP PO ×2 (08:20→21:20)
[2017-10-01] MEDS: DIVALPROEX 250 MG TAB PO ×2 (08:23→21:21)
[2017-10-01] MEDS: SIMVASTATIN 20 MG TAB PO (08:23)
[2017-10-01] MEDS: AMIODARONE 200 MG TAB (PACERONE) PO (08:24)
[2017-10-01] MEDS: SODIUM CHLORIDE NASAL 0.65% SPRAY BTL (OCEAN) ×2 (08:24→21:22)
[2017-10-01] MEDS: NICOTINE 21MG/24HR 1 EA TRANSDERMAL TD (08:24)
[2017-10-01] MEDS: APIXABAN 5 MG TAB (ELIQUIS) PO ×2 (08:24→21:20)
[2017-10-01 17:06] LABS: BEDSIDE GLUCOSE 116 MG/DL (83-110)
[2017-10-01] MEDS: DONEPEZIL 5 MG TAB PO (21:21)
[2017-10-02 06:41] LABS: BEDSIDE GLUCOSE 114 MG/DL (83-110)
[2017-10-02] MEDS: ISOSORBIDE MON. (IMDUR) 30 MG XR TAB PO (09:00)
[2017-10-02] MEDS: SPIRONOLACTONE 25 MG TAB PO (09:00)
[2017-10-02] MEDS: FUROSEMIDE 20 MG TAB PO (09:00)
[2017-10-02] MEDS: NICOTINE 21MG/24HR 1 EA TRANSDERMAL TD (09:45)
[2017-10-02] MEDS: SODIUM CHLORIDE NASAL 0.65% SPRAY BTL (OCEAN) ×2 (09:45→21:00)
[2017-10-02] MEDS: DOCUSATE SODIUM 100 MG CAP PO ×2 (09:45→21:32)
[2017-10-02] MEDS: SIMVASTATIN 20 MG TAB PO (09:45)
[2017-10-02] MEDS: DIVALPROEX 250 MG TAB PO ×2 (09:45→21:32)
[2017-10-02] MEDS: AMIODARONE 200 MG TAB (PACERONE) PO (09:45)
[2017-10-02] MEDS: CARVedilol 6.25 MG TAB PO ×2 (09:50→21:32)
[2017-10-02 16:52] LABS: BEDSIDE GLUCOSE 124 MG/DL (83-110)
[2017-10-02] MEDS: DONEPEZIL 5 MG TAB PO (21:32)
[2017-10-03 06:36] LABS: BEDSIDE GLUCOSE 129 MG/DL (83-110)
[2017-10-03] MEDS: SPIRONOLACTONE 25 MG TAB PO (09:00)
[2017-10-03] MEDS: ISOSORBIDE MON. (IMDUR) 30 MG XR TAB PO (09:00)
[2017-10-03] MEDS: FUROSEMIDE 20 MG TAB PO (09:00)
[2017-10-03] MEDS: SODIUM CHLORIDE NASAL 0.65% SPRAY BTL (OCEAN) ×2 (09:18→20:17)
[2017-10-03] MEDS: DIVALPROEX 250 MG TAB PO ×2 (09:19→20:17)
[2017-10-03] MEDS: AMIODARONE 200 MG TAB (PACERONE) PO (09:19)
[2017-10-03] MEDS: DOCUSATE SODIUM 100 MG CAP PO ×2 (09:19→20:17)
[2017-10-03] MEDS: SIMVASTATIN 20 MG TAB PO (09:19)
[2017-10-03] MEDS: CARVedilol 6.25 MG TAB PO ×2 (09:19→20:18)
[2017-10-03] MEDS: NICOTINE 21MG/24HR 1 EA TRANSDERMAL TD (09:20)
[2017-10-03 17:34] LABS: BEDSIDE GLUCOSE 130 MG/DL (83-110)
[2017-10-03] MEDS: DONEPEZIL 5 MG TAB PO (20:17)
[2017-10-04 07:11] LABS: HEMATOCRIT 36.5 % (42.0-52.0); HEMOGLOBIN 12.1 g/dl (14.0-18.0); MEAN CORPUSCULAR HEMOGLOBIN 31.8 pg (27.0-33.0); MEAN CORPUSCULAR HGB CONC 33.2 g/dl (32.0-36.5); MEAN CORPUSCULAR VOLUME 96.1 fl (80.0-96.0); PLATELET COUNT, AUTOMATED 121 10^3/uL (150-450); WHITE BLOOD COUNT 8.1 10^3/uL (4.0-10.0)
[2017-10-04] MEDS: SIMVASTATIN 20 MG TAB PO (08:27)
[2017-10-04] MEDS: SODIUM CHLORIDE NASAL 0.65% SPRAY BTL (OCEAN) ×2 (08:28→21:39)
[2017-10-04] MEDS: ISOSORBIDE MON. (IMDUR) 30 MG XR TAB PO (08:28)
[2017-10-04] MEDS: FUROSEMIDE 20 MG TAB PO (08:28)
[2017-10-04] MEDS: AMIODARONE 200 MG TAB (PACERONE) PO (08:28)
[2017-10-04] MEDS: SPIRONOLACTONE 25 MG TAB PO (08:28)
[2017-10-04] MEDS: CARVedilol 6.25 MG TAB PO ×2 (08:28→21:39)
[2017-10-04] MEDS: DOCUSATE SODIUM 100 MG CAP PO ×2 (08:28→21:39)
[2017-10-04] MEDS: DIVALPROEX 250 MG TAB PO (08:28)
[2017-10-04] MEDS: NICOTINE 21MG/24HR 1 EA TRANSDERMAL TD (08:29)
[2017-10-04] MEDS: APIXABAN 5 MG TAB (ELIQUIS) PO ×2 (10:17→21:39)
[2017-10-04 17:07] LABS: BEDSIDE GLUCOSE 115 MG/DL (83-110)
[2017-10-04] MEDS: risperiDONE 0.5 MG TAB PO (21:39)
[2017-10-04] MEDS: traZODone 50 MG TAB PO (21:39)
[2017-10-04] MEDS: DONEPEZIL 5 MG TAB PO (21:39)
[2017-10-05 06:27] LABS: BEDSIDE GLUCOSE 113 MG/DL (83-110)
[2017-10-05 07:18] LABS: BASO # 0.1 10^3/uL (0.0-0.2); BASO % 0.9 % (0.0-1.0); EOS # 0.4 10^3/uL (0.0-0.50); EOS % 5.2 % (0.0-3.0); HEMATOCRIT 34.6 % (42.0-52.0); HEMOGLOBIN 11.7 g/dl (14.0-18.0); IMMATURE GRANULOCYTE % 0.4 % (0-3.0); LYMPH # 1.6 10^3/uL (1.5-4.5); LYMPH % 21.1 % (24.0-44.0); MEAN CORPUSCULAR HEMOGLOBIN 32.1 pg (27.0-33.0); MEAN CORPUSCULAR HGB CONC 33.8 g/dl (32.0-36.5); MEAN CORPUSCULAR VOLUME 94.8 fl (80.0-96.0); MONO # 0.7 10^3/uL (0.0-0.8); MONO % 9.7 % (0.0-5.0); NEUTROPHILS # 4.8 10^3/uL (1.8-7.7); NEUTROPHILS % 62.7 % (36.0-66.0); PLATELET COUNT, AUTOMATED 115 10^3/uL (150-450); RED BLOOD COUNT 3.65 10^6/uL (4.30-6.10); RED CELL DISTRIBUTION WIDTH 13.1 % (11.5-14.5); WHITE BLOOD COUNT 7.6 10^3/uL (4.0-10.0)
[2017-10-05] MEDS: AMIODARONE 200 MG TAB (PACERONE) PO (09:15)
[2017-10-05] MEDS: NICOTINE 21MG/24HR 1 EA TRANSDERMAL TD (09:15)
[2017-10-05] MEDS: DOCUSATE SODIUM 100 MG CAP PO ×2 (09:16→21:38)
[2017-10-05] MEDS: SPIRONOLACTONE 25 MG TAB PO (09:16)
[2017-10-05] MEDS: ISOSORBIDE MON. (IMDUR) 30 MG XR TAB PO (09:16)
[2017-10-05] MEDS: CARVedilol 6.25 MG TAB PO ×2 (09:16→21:39)
[2017-10-05] MEDS: APIXABAN 5 MG TAB (ELIQUIS) PO ×2 (09:16→21:38)
[2017-10-05] MEDS: SIMVASTATIN 20 MG TAB PO (09:16)
[2017-10-05] MEDS: FUROSEMIDE 20 MG TAB PO (09:16)
[2017-10-05] MEDS: SODIUM CHLORIDE NASAL 0.65% SPRAY BTL (OCEAN) ×2 (09:17→21:39)
[2017-10-05 17:07] LABS: BEDSIDE GLUCOSE 184 MG/DL (83-110)
[2017-10-05] MEDS: DONEPEZIL 5 MG TAB PO (21:38)
[2017-10-05] MEDS: risperiDONE 0.5 MG TAB PO (21:38)
[2017-10-06 07:29] LABS: HEMOGLOBIN 11.8 g/dl (14.0-18.0); MEAN CORPUSCULAR HEMOGLOBIN 31.6 pg (27.0-33.0); MEAN CORPUSCULAR HGB CONC 33.7 g/dl (32.0-36.5); MEAN CORPUSCULAR VOLUME 93.8 fl (80.0-96.0); PLATELET COUNT, AUTOMATED 116 10^3/uL (150-450); RED BLOOD COUNT 3.73 10^6/uL (4.30-6.10); RED CELL DISTRIBUTION WIDTH 13.2 % (11.5-14.5); WHITE BLOOD COUNT 5.9 10^3/uL (4.0-10.0)
[2017-10-06] MEDS: NICOTINE 21MG/24HR 1 EA TRANSDERMAL TD (09:26)
[2017-10-06] MEDS: SODIUM CHLORIDE NASAL 0.65% SPRAY BTL (OCEAN) ×2 (09:26→20:27)
[2017-10-06] MEDS: SIMVASTATIN 20 MG TAB PO (09:26)
[2017-10-06] MEDS: DOCUSATE SODIUM 100 MG CAP PO ×2 (09:26→20:27)
[2017-10-06] MEDS: CARVedilol 6.25 MG TAB PO ×2 (09:27→20:27)
[2017-10-06] MEDS: FUROSEMIDE 20 MG TAB PO (09:27)
[2017-10-06] MEDS: ISOSORBIDE MON. (IMDUR) 30 MG XR TAB PO (09:27)
[2017-10-06] MEDS: AMIODARONE 200 MG TAB (PACERONE) PO (09:27)
[2017-10-06] MEDS: SPIRONOLACTONE 25 MG TAB PO (09:27)
[2017-10-06] MEDS: APIXABAN 5 MG TAB (ELIQUIS) PO ×2 (09:27→20:27)
[2017-10-06 17:18] LABS: BEDSIDE GLUCOSE 126 MG/DL (83-110)
[2017-10-06] MEDS: risperiDONE 0.5 MG TAB PO (20:27)
[2017-10-06] MEDS: DONEPEZIL 5 MG TAB PO (20:27)
[2017-10-07 06:30] LABS: BEDSIDE GLUCOSE 125 MG/DL (83-110)
[2017-10-07] MEDS: SODIUM CHLORIDE NASAL 0.65% SPRAY BTL (OCEAN) ×2 (08:05→21:37)
[2017-10-07] MEDS: NICOTINE 21MG/24HR 1 EA TRANSDERMAL TD (08:05)
[2017-10-07] MEDS: FUROSEMIDE 20 MG TAB PO (08:06)
[2017-10-07] MEDS: ISOSORBIDE MON. (IMDUR) 30 MG XR TAB PO (08:06)
[2017-10-07] MEDS: SIMVASTATIN 20 MG TAB PO (08:06)
[2017-10-07] MEDS: SPIRONOLACTONE 25 MG TAB PO (08:06)
[2017-10-07] MEDS: DOCUSATE SODIUM 100 MG CAP PO ×2 (08:06→21:36)
[2017-10-07] MEDS: CARVedilol 6.25 MG TAB PO ×2 (08:07→21:37)
[2017-10-07] MEDS: AMIODARONE 200 MG TAB (PACERONE) PO (08:07)
[2017-10-07] MEDS: APIXABAN 5 MG TAB (ELIQUIS) PO ×2 (08:07→21:36)
[2017-10-07 16:58] LABS: BEDSIDE GLUCOSE 114 MG/DL (83-110)
[2017-10-07] MEDS: DONEPEZIL 5 MG TAB PO (21:36)
[2017-10-07] MEDS: risperiDONE 0.5 MG TAB PO (21:36)
[2017-10-08 07:10] LABS: HEMATOCRIT 33.8 % (42.0-52.0); MEAN CORPUSCULAR HEMOGLOBIN 31.8 pg (27.0-33.0); MEAN CORPUSCULAR HGB CONC 32.5 g/dl (32.0-36.5); MEAN CORPUSCULAR VOLUME 97.7 fl (80.0-96.0); PLATELET COUNT, AUTOMATED 107 10^3/uL (150-450); RED BLOOD COUNT 3.46 10^6/uL (4.30-6.10); RED CELL DISTRIBUTION WIDTH 13.6 % (11.5-14.5); WHITE BLOOD COUNT 7.2 10^3/uL (4.0-10.0)
[2017-10-08] MEDS: NICOTINE 21MG/24HR 1 EA TRANSDERMAL TD (08:15)
[2017-10-08] MEDS: APIXABAN 5 MG TAB (ELIQUIS) PO ×2 (08:16→21:19)
[2017-10-08] MEDS: AMIODARONE 200 MG TAB (PACERONE) PO (08:16)
[2017-10-08] MEDS: SPIRONOLACTONE 25 MG TAB PO (08:16)
[2017-10-08] MEDS: DOCUSATE SODIUM 100 MG CAP PO ×2 (08:16→21:00)
[2017-10-08] MEDS: SIMVASTATIN 20 MG TAB PO (08:16)
[2017-10-08] MEDS: ISOSORBIDE MON. (IMDUR) 30 MG XR TAB PO (08:16)
[2017-10-08] MEDS: FUROSEMIDE 20 MG TAB PO (08:16)
[2017-10-08] MEDS: SODIUM CHLORIDE NASAL 0.65% SPRAY BTL (OCEAN) ×2 (08:17→21:18)
[2017-10-08] MEDS: CARVedilol 6.25 MG TAB PO ×2 (08:17→21:19)
[2017-10-08] MEDS: FERROUS SULFATE 325MG TAB PO (09:59)
[2017-10-08] MEDS: MOM 30ML SUSPENSION UDC PO (09:59)
[2017-10-08 12:55] LABS: REASON FOR REVIEW PLATELET MORPHOLOGY; SLIDE REVIEW Report; SOURCE PERIPHERAL SMEAR
[2017-10-08] MEDS: traZODone 50 MG TAB PO (21:19)
[2017-10-08] MEDS: DONEPEZIL 5 MG TAB PO (21:19)
[2017-10-09 05:29] LABS: BEDSIDE GLUCOSE 127 MG/DL (83-110)
[2017-10-09 07:43] LABS: HEMATOCRIT 36.4 % (42.0-52.0); HEMOGLOBIN 12.1 g/dl (14.0-18.0); MEAN CORPUSCULAR HEMOGLOBIN 32.3 pg (27.0-33.0); MEAN CORPUSCULAR HGB CONC 33.2 g/dl (32.0-36.5); MEAN CORPUSCULAR VOLUME 97.1 fl (80.0-96.0); PLATELET COUNT, AUTOMATED 132 10^3/uL (150-450); RED BLOOD COUNT 3.75 10^6/uL (4.30-6.10); RED CELL DISTRIBUTION WIDTH 13.6 % (11.5-14.5); WHITE BLOOD COUNT 8.3 10^3/uL (4.0-10.0)
[2017-10-09 08:13] LABS: ALBUMIN 3.6 GM/DL (3.2-5.2); ALBUMIN/GLOBULIN RATIO 1.06 (1.00-1.93); ALKALINE PHOSPHATASE 74 U/L (45-117); ALT/SGPT 20 U/L (12-78); ANION GAP 6 MEQ/L (8-16); AST/SGOT 14 U/L (7-37); BILIRUBIN,TOTAL 0.4 MG/DL (0.2-1.0); BLOOD UREA NITROGEN 22 MG/DL (7-18); CALCIUM LEVEL 8.7 MG/DL (8.8-10.2); CARBON DIOXIDE LEVEL 30 MEQ/L (21-32); CHLORIDE LEVEL 105 MEQ/L (98-107); CREATININE FOR GFR 0.79 MG/DL (0.70-1.30); GLOMERULAR FILTRATION RATE > 60.0 (>42); GLUCOSE, FASTING 143 MG/DL (70-100); POTASSIUM SERUM 4.3 MEQ/L (3.5-5.1); SODIUM LEVEL 141 MEQ/L (136-145)
[2017-10-09] MEDS: SIMVASTATIN 20 MG TAB PO (09:03)
[2017-10-09] MEDS: FUROSEMIDE 20 MG TAB PO (09:05)
[2017-10-09] MEDS: FERROUS SULFATE 325MG TAB PO (09:05)
[2017-10-09] MEDS: CARVedilol 6.25 MG TAB PO ×2 (09:05→20:44)
[2017-10-09] MEDS: ISOSORBIDE MON. (IMDUR) 30 MG XR TAB PO (09:05)
[2017-10-09] MEDS: APIXABAN 5 MG TAB (ELIQUIS) PO ×2 (09:05→20:43)
[2017-10-09] MEDS: AMIODARONE 200 MG TAB (PACERONE) PO (09:05)
[2017-10-09] MEDS: SPIRONOLACTONE 25 MG TAB PO (09:05)
[2017-10-09] MEDS: DOCUSATE SODIUM 100 MG CAP PO ×2 (09:05→20:41)
[2017-10-09] MEDS: SODIUM CHLORIDE NASAL 0.65% SPRAY BTL (OCEAN) ×2 (09:06→20:41)
[2017-10-09] MEDS: NICOTINE 21MG/24HR 1 EA TRANSDERMAL TD (09:06)
[2017-10-09 17:32] LABS: BEDSIDE GLUCOSE 158 MG/DL (83-110)
[2017-10-09] MEDS: DONEPEZIL 5 MG TAB PO (20:43)
[2017-10-09] MEDS: traZODone 50 MG TAB PO (20:45)
[2017-10-10 06:32] LABS: BEDSIDE GLUCOSE 113 MG/DL (83-110)
[2017-10-10 07:11] LABS: HEMATOCRIT 34.1 % (42.0-52.0); HEMOGLOBIN 11.4 g/dl (14.0-18.0); MEAN CORPUSCULAR HEMOGLOBIN 31.8 pg (27.0-33.0); MEAN CORPUSCULAR HGB CONC 33.4 g/dl (32.0-36.5); MEAN CORPUSCULAR VOLUME 95.3 fl (80.0-96.0); PLATELET COUNT, AUTOMATED 124 10^3/uL (150-450); RED BLOOD COUNT 3.58 10^6/uL (4.30-6.10); RED CELL DISTRIBUTION WIDTH 13.8 % (11.5-14.5); WHITE BLOOD COUNT 7.3 10^3/uL (4.0-10.0)
[2017-10-10 07:27] LABS: ALBUMIN 3.2 GM/DL (3.2-5.2); ALBUMIN/GLOBULIN RATIO 0.91 (1.00-1.93); ALKALINE PHOSPHATASE 74 U/L (45-117); ALT/SGPT 18 U/L (12-78); ANION GAP 8 MEQ/L (8-16); AST/SGOT 12 U/L (7-37); BILIRUBIN,TOTAL 0.3 MG/DL (0.2-1.0); BLOOD UREA NITROGEN 26 MG/DL (7-18); CALCIUM LEVEL 8.5 MG/DL (8.8-10.2); CARBON DIOXIDE LEVEL 27 MEQ/L (21-32); CHLORIDE LEVEL 107 MEQ/L (98-107); CREATININE FOR GFR 0.84 MG/DL (0.70-1.30); GLOMERULAR FILTRATION RATE > 60.0 (>42); GLUCOSE, FASTING 117 MG/DL (70-100); POTASSIUM SERUM 4.4 MEQ/L (3.5-5.1); SODIUM LEVEL 142 MEQ/L (136-145); TOTAL PROTEIN 6.7 GM/DL (6.4-8.2)
[2017-10-10] MEDS: DOCUSATE SODIUM 100 MG CAP PO ×2 (09:00→21:20)
[2017-10-10] MEDS: SODIUM CHLORIDE NASAL 0.65% SPRAY BTL (OCEAN) ×2 (09:00→21:20)
[2017-10-10] MEDS: APIXABAN 5 MG TAB (ELIQUIS) PO ×2 (09:08→21:20)
[2017-10-10] MEDS: NICOTINE 21MG/24HR 1 EA TRANSDERMAL TD (09:08)
[2017-10-10] MEDS: FUROSEMIDE 20 MG TAB PO (09:08)
[2017-10-10] MEDS: FERROUS SULFATE 325MG TAB PO (09:08)
[2017-10-10] MEDS: SIMVASTATIN 20 MG TAB PO (09:08)
[2017-10-10] MEDS: AMIODARONE 200 MG TAB (PACERONE) PO (09:09)
[2017-10-10] MEDS: CARVedilol 6.25 MG TAB PO (09:19)
[2017-10-10] MEDS: SPIRONOLACTONE 25 MG TAB PO (09:19)
[2017-10-10 17:42] LABS: BEDSIDE GLUCOSE 91 MG/DL (83-110)
[2017-10-10] MEDS: DONEPEZIL 5 MG TAB PO (21:19)
[2017-10-11] MEDS: SIMVASTATIN 20 MG TAB PO (08:07)
[2017-10-11] MEDS: FERROUS SULFATE 325MG TAB PO (08:07)
[2017-10-11] MEDS: SODIUM CHLORIDE NASAL 0.65% SPRAY BTL (OCEAN) ×2 (08:07→21:00)
[2017-10-11] MEDS: APIXABAN 5 MG TAB (ELIQUIS) PO ×2 (08:07→21:22)
[2017-10-11] MEDS: NICOTINE 21MG/24HR 1 EA TRANSDERMAL TD (08:08)
[2017-10-11] MEDS: DOCUSATE SODIUM 100 MG CAP PO ×2 (08:09→21:22)
[2017-10-11] MEDS: AMIODARONE 200 MG TAB (PACERONE) PO (08:10)
[2017-10-11] MEDS: DONEPEZIL 5 MG TAB PO (21:22)
[2017-10-12 06:56] LABS: BEDSIDE GLUCOSE 115 MG/DL (83-110)
[2017-10-12 07:05] LABS: HEMATOCRIT 34.5 % (42.0-52.0); HEMOGLOBIN 11.4 g/dl (14.0-18.0); MEAN CORPUSCULAR HEMOGLOBIN 31.4 pg (27.0-33.0); PLATELET COUNT, AUTOMATED 161 10^3/uL (150-450); RED BLOOD COUNT 3.63 10^6/uL (4.30-6.10); WHITE BLOOD COUNT 7.7 10^3/uL (4.0-10.0)
[2017-10-12] MEDS: APIXABAN 5 MG TAB (ELIQUIS) PO ×2 (09:00→20:32)
[2017-10-12] MEDS: FERROUS SULFATE 325MG TAB PO (09:00)
[2017-10-12] MEDS: SIMVASTATIN 20 MG TAB PO (09:00)
[2017-10-12] MEDS: SODIUM CHLORIDE NASAL 0.65% SPRAY BTL (OCEAN) ×2 (09:00→20:31)
[2017-10-12] MEDS: DOCUSATE SODIUM 100 MG CAP PO ×2 (09:00→20:31)
[2017-10-12] MEDS: AMIODARONE 200 MG TAB (PACERONE) PO (09:00)
[2017-10-12] MEDS: NICOTINE 21MG/24HR 1 EA TRANSDERMAL TD (09:01)
[2017-10-12 16:49] LABS: BEDSIDE GLUCOSE 112 MG/DL (83-110)
[2017-10-12] MEDS: DONEPEZIL 5 MG TAB PO (20:31)
[2017-10-12 20:41] LABS: BEDSIDE GLUCOSE 202 MG/DL (83-110)
[2017-10-13 06:55] LABS: BEDSIDE GLUCOSE 95 MG/DL (83-110)
[2017-10-13] MEDS: NICOTINE 21MG/24HR 1 EA TRANSDERMAL TD (08:57)
[2017-10-13] MEDS: FERROUS SULFATE 325MG TAB PO (08:58)
[2017-10-13] MEDS: APIXABAN 5 MG TAB (ELIQUIS) PO ×2 (08:58→21:14)
[2017-10-13] MEDS: AMIODARONE 200 MG TAB (PACERONE) PO (08:58)
[2017-10-13] MEDS: DOCUSATE SODIUM 100 MG CAP PO ×2 (08:58→21:14)
[2017-10-13] MEDS: SODIUM CHLORIDE NASAL 0.65% SPRAY BTL (OCEAN) ×2 (08:58→21:14)
[2017-10-13] MEDS: SIMVASTATIN 20 MG TAB PO (08:58)
[2017-10-13 20:50] LABS: BEDSIDE GLUCOSE 114 MG/DL (83-110)
[2017-10-13] MEDS: DONEPEZIL 5 MG TAB PO (21:14)
[2017-10-14 06:38] LABS: BEDSIDE GLUCOSE 104 MG/DL (83-110)
[2017-10-14] MEDS: DOCUSATE SODIUM 100 MG CAP PO ×2 (08:53→21:06)
[2017-10-14] MEDS: SIMVASTATIN 20 MG TAB PO (08:53)
[2017-10-14] MEDS: AMIODARONE 200 MG TAB (PACERONE) PO (08:53)
[2017-10-14] MEDS: NICOTINE 21MG/24HR 1 EA TRANSDERMAL TD (08:53)
[2017-10-14] MEDS: FERROUS SULFATE 325MG TAB PO (08:53)
[2017-10-14] MEDS: APIXABAN 5 MG TAB (ELIQUIS) PO ×2 (08:53→21:06)
[2017-10-14] MEDS: SODIUM CHLORIDE NASAL 0.65% SPRAY BTL (OCEAN) ×2 (08:53→21:07)
[2017-10-14 17:07] LABS: BEDSIDE GLUCOSE 81 MG/DL (83-110)
[2017-10-14] MEDS: DONEPEZIL 5 MG TAB PO (21:06)
[2017-10-15] MEDS: AMIODARONE 200 MG TAB (PACERONE) PO (09:00)
[2017-10-15] MEDS: FERROUS SULFATE 325MG TAB PO (09:00)
[2017-10-15] MEDS: SIMVASTATIN 20 MG TAB PO (09:00)
[2017-10-15] MEDS: APIXABAN 5 MG TAB (ELIQUIS) PO ×2 (09:00→20:23)
[2017-10-15] MEDS: DOCUSATE SODIUM 100 MG CAP PO ×2 (09:00→20:23)
[2017-10-15] MEDS: NICOTINE 21MG/24HR 1 EA TRANSDERMAL TD (09:01)
[2017-10-15] MEDS: SODIUM CHLORIDE NASAL 0.65% SPRAY BTL (OCEAN) ×2 (09:02→20:23)
[2017-10-15] MEDS: DONEPEZIL 5 MG TAB PO (20:23)
[2017-10-16 08:57] LABS: BEDSIDE GLUCOSE 100 MG/DL (83-110)
[2017-10-16 08:57] LABS: BEDSIDE GLUCOSE 87 MG/DL (83-110)
[2017-10-16] MEDS: DOCUSATE SODIUM 100 MG CAP PO ×2 (09:00→21:53)
[2017-10-16] MEDS: SIMVASTATIN 20 MG TAB PO (09:17)
[2017-10-16] MEDS: NICOTINE 21MG/24HR 1 EA TRANSDERMAL TD (09:17)
[2017-10-16] MEDS: AMIODARONE 200 MG TAB (PACERONE) PO (09:17)
[2017-10-16] MEDS: FERROUS SULFATE 325MG TAB PO (09:17)
[2017-10-16] MEDS: APIXABAN 5 MG TAB (ELIQUIS) PO ×2 (09:17→21:54)
[2017-10-16] MEDS: SODIUM CHLORIDE NASAL 0.65% SPRAY BTL (OCEAN) ×2 (09:18→21:54)
[2017-10-16 17:25] LABS: BEDSIDE GLUCOSE 88 MG/DL (83-110)
[2017-10-16] MEDS: DONEPEZIL 5 MG TAB PO (21:54)
[2017-10-17] MEDS: AMIODARONE 200 MG TAB (PACERONE) PO (09:06)
[2017-10-17] MEDS: SIMVASTATIN 20 MG TAB PO (09:06)
[2017-10-17] MEDS: FERROUS SULFATE 325MG TAB PO (09:06)
[2017-10-17] MEDS: DOCUSATE SODIUM 100 MG CAP PO ×2 (09:06→21:43)
[2017-10-17] MEDS: NICOTINE 21MG/24HR 1 EA TRANSDERMAL TD (09:06)
[2017-10-17] MEDS: SODIUM CHLORIDE NASAL 0.65% SPRAY BTL (OCEAN) ×2 (09:07→21:44)
[2017-10-17] MEDS: APIXABAN 5 MG TAB (ELIQUIS) PO ×2 (09:07→21:43)
[2017-10-17 17:29] LABS: BEDSIDE GLUCOSE 85 MG/DL (83-110)
[2017-10-17] MEDS: DONEPEZIL 5 MG TAB PO (21:43)
[2017-10-18 06:24] LABS: BEDSIDE GLUCOSE 102 MG/DL (83-110)
[2017-10-18] MEDS: FERROUS SULFATE 325MG TAB PO (09:05)
[2017-10-18] MEDS: AMIODARONE 200 MG TAB (PACERONE) PO (09:05)
[2017-10-18] MEDS: SODIUM CHLORIDE NASAL 0.65% SPRAY BTL (OCEAN) (09:05)
[2017-10-18] MEDS: NICOTINE 21MG/24HR 1 EA TRANSDERMAL TD (09:05)
[2017-10-18] MEDS: SIMVASTATIN 20 MG TAB PO (09:05)
[2017-10-18] MEDS: APIXABAN 5 MG TAB (ELIQUIS) PO (09:05)
[2017-10-18] MEDS: DOCUSATE SODIUM 100 MG CAP PO (09:05)
== END 2017-10-18 11:35 | disposition home health service (06) | DRG 885 ==
LOC: M ED 23:02 → M ED INP 09-10 10:11 → M PSY 09-10 10:55
DX: F31.9 Bipolar disorder, unspecified (principal); I50.22 Chronic systolic (congestive) heart failure; G30.9 Alzheimer's disease, unspecified; F02.80 Dementia in other diseases classified elsewhere, unspecified severity, without behavioral disturbance, psychotic disturbance, mood disturbance, and anxiety; E11.9 Type 2 diabetes mellitus without complications; I95.9 Hypotension, unspecified; I25.10 Atherosclerotic heart disease of native coronary artery without angina pectoris; E78.5 Hyperlipidemia, unspecified; I48.2 Chronic atrial fibrillation; F17.210 Nicotine dependence, cigarettes, uncomplicated; Z91.14 Patient's other noncompliance with medication regimen; Z79.82 Long term (current) use of aspirin; Z79.01 Long term (current) use of anticoagulants; Z79.899 Other long term (current) drug therapy; Z95.0 Presence of cardiac pacemaker